=== PATIENT | female | born 1960 | race Caucasian/White ===

== ENCOUNTER 2016-10-14 14:29 | Emergency (ER) | payer OTHER ==
[2016-10-14] MEDS ORDERED: NS 0.9% 1000 ML* 1,000 ML IV ONE (15:19)
[2016-10-14] MEDS ORDERED: Metoclopramide IV* 5 MG/ML 2 ML VIAL IV SLOW PU ONE (15:19)
--- NOTE | 2016-10-14 15:59 | RAD ---
INDICATION: Headache. COMPARISON: There are no prior studies available for comparison. TECHNIQUE: Contiguous axial sections of the brain were obtained from the skull base to the vertex without contrast. FINDINGS: The ventricles, cisterns and sulci are within normal limits. There is a small 3 mm area of increased density in the anterior aspect of the right lentiform nucleus most consistent with a calcification much less likely a small area of hemorrhage. No other focal abnormality is a mass effect are seen. No significant focal osseous abnormality is seen. The visualized portion of the paranasal sinuses and mastoid air cells appear clear. IMPRESSION: SMALL 3 MM FOCUS OF INCREASED DENSITY IN THE RIGHT LENTIFORM NUCLEUS LIKELY REPRESENTING A CALCIFICATION MUCH LESS LIKELY A SMALL AREA OF HEMORRHAGE.
[2016-10-14 16:02] LABS: Hematocrit 42 % (35-47); Mean Corpuscular HGB Conc 33 g/dl (31-36); Mean Corpuscular Hemoglobin 28 pg (27-31); Mean Corpuscular Volume 85 fL (80-97); Mean Platelet Volume 8 um3 (7.4-10.4); Red Blood Count 4.99 10^6/ul (4.0-5.4); Red Cell Distribution Width 13 % (10.5-15); White Blood Count 8.4 10^3/ul (3.5-10.8)
[2016-10-14 16:24] LABS: Albumin 4.2 g/dL (3.2-5.2); BUN/Creatinine Ratio 14.5 (8-20); Calcium 9.2 mg/dL (8.6-10.3); EGFR African American 112.8 (>60); EGFR Non-African American 87.7 (>60); Globulin 2.7 g/dL (2-4); Total Bilirubin 0.4 mg/dL (0.2-1.0); Total Protein 6.9 g/dL (6.4-8.9)
[2016-10-14 16:34] LABS: Urine Bilirubin Negative (Negative); Urine Glucose Negative (Negative); Urine Nitrite Negative (Negative)
[2016-10-14] MEDS ORDERED: Ketorolac INJ* 30 MG/ML 1 ML VIAL IV PUSH ONE (19:12)
[2016-10-14 20:08] VITALS: BP 109/64
--- NOTE | 2016-10-16 15:21 | ED ---
Lynda Mejia SooYoung, scribed for Kleber Pichardo MD on 10/14/16 at 1504 . Headache - HPI Summary HPI Summary: A 56 y/o F presents to ED with c/o worsening R frontal MCDANIEL onset this week. Pain rated as 5/10. She states having intermittent episodes over past several weeks. Associated sx: sinus congestion last night, tingling in lower lip, post nasal drip. She took Zicam last night. Denies CP, SOB, dizziness/lightheadedness, rhinorrhea, head trauma, blurry vision, nausea, dental pain/sores, difficulty walking, trouble finding words. Pert PMHx: migraines. Last took Excedrin at approx 1300. Non-smoker, drinker, rare caffeine. No previous hx DVT. - History Of Current Complaint Chief Complaint: EDHeadache Stated Complaint: HEADACHE Time Seen by Provider: 10/14/16 15:02 Hx Obtained From: Patient Onset/Duration: Started weeks ago, Still Present Initially Headache Was: Moderate Currently Pain Is: Moderate - 5/10 Timing: Intermittent, Lasting: Location of Headache: Frontal Associated Signs And Symptoms: Sinus Pressure, Other (Noted In Comments) - pos: tingling in lower lip, post nasal drip - Allergies/Home Medications Allergies/Adverse Reactions: Allergies Allergy/AdvReac Type Severity Reaction Status Date / Time No Known Allergies Allergy Verified 03/05/16 17:34 PMH/Surg Hx/FS Hx/Imm Hx Previously Healthy: No Endocrine/Hematology History: Denies: Hx Diabetes, Hx Thyroid Disease Cardiovascular History: Denies: Hx Congestive Heart Failure, Hx Hypertension, Hx Pacemaker/ICD, Other Cardiovascular Problems/Disorders Respiratory History: Denies: Hx Asthma, Hx Chronic Obstructive Pulmonary Disease (COPD), Other Respiratory Problems/Disorders GI History: Denies: Hx Ulcer Musculoskeletal History: Denies: Hx Osteoporosis Psychiatric History: Reports: Hx Attention Deficit Hyperactivity Disorder, Hx Depression - Cancer History Hx Chemotherapy: No Hx Radiation Therapy: No - Surgical History Surgery Procedure, Year, and Place: , GALL BLADDER REMOVED, HERNIA REPAIR Infectious Disease History: No Infectious Disease History: Reports: Hx Shingles - AT AGE 1 OR 2 Denies: Hx Hepatitis, Hx Human Immunodeficiency Virus (HIV), Traveled Outside the [place] in Last 30 Days - Family History Known Family History: Positive: Hypertension, Renal Disease - Social History Occupation: Retired Lives: With Family Alcohol Use: Weekly Hx Substance Use: No Substance Use Type: Reports: None Hx Tobacco Use: No Smoking Status (MU): Never Smoked Tobacco Review of Systems Positive: Other - neg: head trauma. Negative: Fever, Chills Negative: Blurred Vision, Erythema Positive: Nasal Discharge - post nasal drip, Other - pos: sinus congestion; "tingling in lower lip". Negative: Dental Pain, Sore Throat Negative: Chest Pain Negative: Shortness Of Breath, Cough Negative: Abdominal Pain, Vomiting, Nausea Negative: dysuria, hematuria Negative: Myalgia, Edema Neurological: Other - neg: dizziness; difficulty finding words; trouble walking Positive: Headache All Other Systems Reviewed And Are Negative: Yes Physical Exam - Summary Physical Exam Summary: Constitutional: Well-developed, Well-nourished, Alert. (-) Distressed Skin: Warm, Dry HENT: Eyes: Conjunctiva normal; R MAXILLARY SINUS TENDERNESS. Neck: Musculoskeletal ROM normal neck. (-) JVD, (-) Stridor, (-) Tracheal deviation Cardio: Rhythm regular, rate normal, Heart sounds normal; Intact distal pulses; The pedal pulses are 2+ and symmetric. Radial pulses are 2+ and symmetric. (-) Murmur Pulmonary/Chest wall: Effort normal. (-) Respiratory distress, (-) Wheezes, (-) Rales Abd: Soft. (-) Tenderness, (-) Distension, (-) Guarding, (-) Rebound Musculoskeletal: (-) Edema Lymph: (-) Cervical adenopathy Neuro: Alert, Oriented x3, Strength normal, Cranial nerves II-XII are grossly intact. (-) Dysmetria, (-) Nystagmus, (-) Ataxia by finger to nose testing, (-) Sensory deficit. Psych: Mood and affect Normal Triage Information Reviewed: Yes Vital Signs On Initial Exam: Initial Vitals Temp Pulse Resp BP Pulse Ox 97.4 F 86 15 144/66 98 10/14/16 14:30 10/14/16 14:30 10/14/16 14:30 10/14/16 14:30 10/14/16 14:30 Vital Signs Reviewed: Yes Diagnostics - Vital Signs Vital Signs Temp Pulse Resp BP Pulse Ox 10/14/16 14:30 97.7 F 88 17 144/66 98 - Laboratory Result Diagrams: 10/14/16 15:55 10/14/16 15:55 Lab Statement: Any lab studies that have been ordered have been reviewed, and results considered in the medical decision making process. - CT BRAIN CT Interpretation: Positive (See Comments) - IMPRESSION: SMALL 3 MM FOCUS OF INCREASED DENSITY IN THE RIGHT LENTIFORM NUCLEUS LIKELY REPRESENTING A CALCIFICATION MUCH LESS LIKELY A SMALL AREA OF HEMORRHAGE. CT Interpretation Completed By: Radiologist - EKG 1 Cardiac Rate: NL EKG Rhythm: Sinus Rhythm Re-Evaluation - Re-Evaluation 1 Re-Evaluation Time: 18:35 Change: Unchanged Comment: Brief reevaluation of pt. Pt remarks feeling chilled. Will have nurse take temp. 2 Re-Evaluation Time: 19:30 Change: Improved Comment: Discussing neuro consult with pt. States her MCDANIEL has reduced to 2/10. She notes that her typical migraines usually occurs on the L side with oral numbness. Headache Course/Dx - Course Course Of Treatment: Pt is a 56 y/o F presenting with worsening R frontal MCDANIEL onset this week. Pain rated as 5/10. She states having intermittent episodes over past several weeks. Associated sx: sinus congestion last night, tingling in lower lip, post nasal drip. Denies CP, SOB, dizziness/lightheadedness, rhinorrhea, head trauma, blurry vision, nausea, dental pain/sores, difficulty walking, trouble finding words. Pert PMHx: migraines. Took Zicam last night, Excedrin at approx 1300. Non-smoker, drinker, rare caffeine. No previous hx DVT. Pt given Reglan, fluids in ED. Trop is negative. EKG was nml. UA was nml except for decreased specific gravity of 1.004. Brain CT shows "SMALL 3 MM FOCUS OF INCREASED DENSITY IN THE RIGHT LENTIFORM NUCLEUS LIKELY REPRESENTING A CALCIFICATION MUCH LESS LIKELY A SMALL AREA OF HEMORRHAGE.". Consulted with Dr. Flaherty, neuro, who has low suspicion of vascular dz because sx are too localized, recommends migraine treatment, will look at images. D/C home without meds and f/u with PCP. Discussed stopping Excedrin and taking Motrin or Aleve. Pt voiced understanding. - Diagnoses Provider Diagnoses: Atypical migraine - Physician Notifications Discussed Care Of Patient With: Judd Velarde - neuro Time Discussed With Above Provider: 19:07 Instructed by Provider To: Other - see CoT Discharge - Discharge Plan Condition: Stable Disposition: HOME Patient Education Materials: Migraine Headache (ED) Referrals: Ashlyn Cunningham MD [Primary Care Provider] - 3 Days Additional Instructions: Follow up with your primary care provider in the next 2-3 days. As we discussed, take Motrin or Aleve instead of Excedrin. The documentation as recorded by the Lynda whitt SooYoung accurately reflects the service I personally performed and the decisions made by me, Kleber Pichardo MD.
== END 2016-10-14 20:07 | disposition home or self-care (01) ==
LOC: ED 14:29
DX: G43.909 Migraine, unspecified, not intractable, without status migrainosus (principal); R51 Headache
CPT/HCPCS: 36415; 70450; 80053; 81003; 84484; 85027; 93005; 96374; 96375; 99282; J1885

== ENCOUNTER 2017-06-24 16:38 | Emergency (ER) | payer OTHER ==
--- OUTSIDE RECORDS SUMMARY | 2017-06-24 16:45 | XMS REPORT ---
:1960 External Reference #:[id number] Author Organization [facility] Address [address] [address] Phone [phone] Care Team Providers Name Role Phone Ashlyn Cunningham MD Primary Care Physician Unavailable Payers Type Date Identification Numbers Payment Provider Subscriber Commercial Policy Number: [id number] [employer] Dorene Arvada PayID: [id number] [address] [place] [address] Commercial Effective: 2014 Policy Number: Aetna-ADRIANACINDY Stephenson [id number] Expires: 2016 Group Number: [id number] [address] PayID: [id number] [place] [address] Commercial Effective: 2010 Policy Number: Aetna-CPHL [place] [id number] Expires: 2014 PayID: [id number] [address] [place] [address] Medigap Part B Effective: Policy Number: [employer] Insurance Dorene Arvada 2005 [id number] Expires: 2010 Group Number: [id number] [address] PayID: [id number] [place] [address] Problems Date Description Provider Status Onset: 01/10/2011 Anxiety state Brielle Donato M.D., FACP Active Onset: 01/10/2011 Depressive disorder Brielle Donato M.D., FACP Active Onset: 01/10/2011 Pure hypercholesterolemia Brielle Donato M.D., ANAP Active Onset: 01/10/2011 Bipolar I disorder Brielle Donato M.D., SEVEN Active Onset: 11/17/2014 Celiac disease Ashlyn Cunningham M.D. Active Onset: 08/06/2016 Irritable bowel syndrome Ashlyn Cunningham M.D. Active Family History Date Family Member(s) Problem(s) Comments Father Kidney Disease on HD : (age 84 Father due to Renal Years) Failure Mother Hypertension First Son Aspberger's First Sister 59 Second Sister 55 Second Sister Diabetes Type II reversed with weight loss Social History Type Date Description Comments Marital Status 28 years Lives With Son Kristine. 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[employer] Cigarette Use Never Smoked Cigarettes ETOH Use Drinks 1 Alcoholic Beverage Per Week hard cider Smoking Patient has never smoked Allergies, Adverse Reactions, Alerts Date Description Reaction Status Severity Comments 11/19/2009 No Known Drug Allergy active Medications Medication Date Status Form Strength Qnty SIG Indications Ordering Provider Ventolin HFA 06/22 Active Aerosol 108(90Bas 8gm 1-2 puffs R05 Fermin e) every 4-6 Stevenson, PUBLIC AFFAIRS MANAGER mcg/Act hours as needed Fluticasone 06/22 Active Suspension 50mcg/Act 16uni 2 sprays R05 Fermin Propionate ts each Stevenson, PUBLIC AFFAIRS MANAGER nostril qd. Flovent HFA 06/01 Active Aerosol 220mcg/Ac 12gm 2 puffs t twice Cotton, daily M.D. Benzonatate 06/01 Active Capsules 200mg 30cap take 1 s capsule by Cotton, mouth M.D. three times a day if needed for cough Aerochamber Plus 05/31 Active Misc 1unit spacer per R05 s plan - use Cotton, with M.D. inhaler Fluoxetine 09/09 Active Capsules 20mg 1 tab qhs Maria Del Carmen Donato, ANAP Fluoxetine HCL Active Capsules 40mg 1 by mouth Unknown /0000 every pm Allergy Relief Active Capsules 25mg Unknown /0000 Probiotic Active Capsules 1 by mouth Unknown /0000 every day Methylphenidate Active Tablets ER 54mg 30tab 1 by mouth Ashlyn HCL ER /0000 s every day Maria Del Carmen Cunningham Melatonin 00 Active Capsules 1mg 1 tab Unknown /0000 before bedtime Clonazepam 00 Active Tablets 0.5mg Unknown /0000 Flovent HFA 03/19 Hx Aerosol 110mcg/Ac 12gm 2 puffs t twice Cotton, - daily M.D. 06/01 Azithromycin 10/18 Hx Tablets 250mg 6tabs 2 tabs by 465.9 Ashlyn /2017 mouth on Cotton, - day 1; 1 M.D. 10/25 tab by /2016 mouth every day on days 2-5 Ondansetron 02/12 Hx Tablets 4mg 30tab dissolve R11.2 Fermin /2014 Dispers s one tablet Stevenson, PUBLIC AFFAIRS MANAGER - orally 05/18 every hours as needed for nausea. Cheratussin ac 01/19 Hx Syrup 100-10mg/ 118ml take 5-10 J06.9 Fermin 5ML milliliter Stevenson, PUBLIC AFFAIRS MANAGER - s every 01/27 4-6 hours /2014 as needed for cough. Fluticasone 01/19 Hx Suspension 50mcg/Act 16uni 2 sprays J06.9 Fermin Propionate ts each Stevenson, PUBLIC AFFAIRS MANAGER - nostril 02/03 qd. Baclofen 07/13 Hx Tablets 10mg 20tab take 04/24 847.0 Fermin /2014 s tab every Stevenson, PUBLIC AFFAIRS MANAGER - 8 hours as 09/09 needed for muscle spasm Azithromycin 05/08 Hx Tablets 250mg 6tabs 2 tabs by 465.9 Ashlyn /2015 mouth on Cotton, - day 1; 1 M.D. 07/13 tab by /2014 mouth every day on days 2-5 Pulmicort 05/08 Hx Aerosol 90mcg/Act 1unit 2 puff 465.9 Ashlyn Flexhaler s twice a Cotton, - day M.D. 07/13 Proair HFA 05/08 Hx Aerosol 108(90Bas 1unit 2 puffs 4 465.9 Ashlyn /2015 e) s times Cotton, - mcg/Act daily as M.D. 07/13 needed Nitrofurantoin 04/17 Hx Capsules 100mg 14cap 1 by mouth Ashlyn Monohyd Macro s twice a Cotton, - day x 7 M.D. 05/07 days Benzonatate 09/19 Hx Capsules 200mg 45cap take 1 s capsule by Cotton, - mouth M.D. 05/07 times a day if needed Flovent HFA 09/19 Hx Aerosol 110mcg/Ac 12gm 2 puffs t twice Cotton, - daily M.D. 05/07 Azithromycin 09/16 Hx Tablets 250mg 6tabs 2 tabs by 465.9 mouth on Cotton, - day 1; 1 M.D. 09/27 tab by mouth every day on days 2-5 Ergocalciferol 03/10 Hx Capsules [id number] 8caps 1 cap by mouth Kinga, - every week M.D., FACP 09/16 Omeprazole 08/[address] 20mg 180ca take 1 ps capsule Cotton, - once daily M.D. 07/13 Ergocalciferol 02/21 Hx Capsules [id number] 8caps 1 cap by 268.9 mouth Kinga, - every week M.D., FACP 02/27 Guaiatussin ac 01/25 Hx Syrup 100-10mg/ 118ml take 10 ml 786.2 Hollie 5ML by mouth Shane, - every 6 M.D. 02/21 hours needed for cough Azithromycin 01/25 Hx Tablets 250mg 6tabs two tabs 786.2 day one, Shane, - one daily M.D. 02/21 till Clobex 01/10 Hx Shampoo 0.05% 118ml use once a day Kinga, - M.D., FACP 05/18 Physical Therapy 09/09 Hx Low back, Right Kinga, - sacroiliit M.D., FACP 01/10 Clobex 03/09 Hx Lotion 0.05% 118ml apply to affected Kinga, - area every M.D., FACP Albuterol 02/04 Hx 1unit 2 puffs 4 786.2 Ashlyn Inhal s times Cotton, - daily as M.D. 11/30 needed Flovent HFA 02/04 Hx Aerosol 110mcg/Ac 12gm 2 puffs 786.2 t twice Shane, - daily M.D. 09/16 Azithromycin 02/04 Hx Tablets 250mg 6tabs 2 tabs po 786.2 on day 1; Octavio, - 1 tab po M.D. 03/09 qd on 2-5 Prednisone 02/04 Hx Tablets 10mg 20tab 4 tabs po 786.2 s days 1-2; Octavio, - 3 tabs po M.D. 03/09 on 3-4, 2 tabs po on days 5-6, 1 tab po days 7-8 Medrol Dosepak 01/21 Hx Tablets 4mg 1tabs follow package Kinga, - roque M.DEz, [facility] 02/04 take with food Zithromax Z-Obi 01/17 Hx Tablets 250mg 1Pack two po initially Kinga, - then one M.D., FACP 01/27 po daily Proair HFA 01/17 Hx Aerosol 108(90Bas 1unit 1 to 2 e) mcg/ac s inhalation Kinga, - s before M.D., [facility] 03/09 exercise or as needed Lorazepam 12/07 Hx Tablets 0.5mg 1 tablet daily as Kinga, - needed M.D., [facility] 03/09 0.5 cc Sure Dose 12/07 Hx 100un use as Brielle Plus Syringes its directed Juan Donato M.D., [facility] 01/17 Trileptal 11/19 Hx 150mg 2 tablets every Kinga, - evening M.D., [facility] 03/09 Fluoxetine HCL 11/19 Hx Capsules 40mg 30cap 1 daily s Juan Donato M.D., [facility] 09/09 Concerta 11/19 Hx Tablets ER 36mg 30tab 1 daily s Jaun Donato M.D., FACP 03/09 Strattera 09/26 Hx Brielle Juan Donato M.D., [facility] 11/19 Prozac 09/26 Hx Unknown /2009 - 09/26 Abilify 09/26 Hx Brielle Kinga, - M.D., FACP 11/19 Omeprazole 09/[address] 20mg 30cap Take one Brielle s capsule Kinga, - twice M.D., FACP 01/25 Pristiq 09/26 Hx Tablets ER 50mg 90tab Take 1 24HR s Tablet Kinga, - Daily M.D., FACP 03/20 Activella 09/26 Hx Tablets 1-0.5mg 3tabs take 1 Ashlyn tablet Cotton, - daily M.D. 07/13 Concerta Hx Tablets ER 36mg 1 po qd Unknown /0000 - 10/17 Concerta Hx Tablets ER 18mg 30tab 1 po qd Unknown /0000 s - 09/09 Trileptal Hx Tablets 300mg 2 At Night Unknown /0000 (600mg - daily) 09/16 Trileptal Hx Tablets 150mg 360ta 1 by mouth Unknown /0000 bs in am - 09/09 Hiddenite Hx Tablets ER 300mg 1 by mouth Filler, Carbonate ER /0000 daily MD Hollie - 03/07 Prozac 00 Hx Capsules 10mg 30cap 1 po qd Unknown /0000 s - 06/08 Abilify 00/00 Hx Tablets 2mg 30tab 1 po qpm 296.7 Unknown /0000 s - 09/20 Loratadine Hx Tablets 10mg 30tab Unknown Allergy Relief /0000 Dispers s - 04/26 Probiotic 4X 00/ Hx Capsules 1 po qd Unknown /0000 - 02/27 Pristiq Hx Tablets ER 100mg 1 po qd Unknown /0000 24HR - 02/27 Effexor XR Hx Caps ER 150mg 30cap daily Unknown /0000 24HR s - 10/21 Abilify 00/00 Hx Tablets 2mg 30tab 1 po qpm Unknown /0000 s - 07/13 Fish Oil [address] 1000mg 180ca 1 by mouth Unknown /0000 ps every day - 09/09 Vitamin D 00/00 Hx Tablets 1000Unit 1 tab each Unknown (Cholecalciferol /0000 day by ) - mouth 09/09 Multi-Day Hx Tablets 1 by mouth Unknown /0000 every day - 01/19 Probiotic Daily 0000 Hx Capsules 30cap Unknown /0000 s - 09/09 Lorazepam 00 Hx Tablets 0.5mg as Unknown /0000 directed - 10/17 Methylphenidate Hx 10mg Unknown HCL /0000 - 10/15 Omeprazole 00 Hx Capsules 1 by mouth Unknown /0000 every day - 12/17 Vitamin D3 Hx Capsules 2000Unit 1 by mouth Unknown /0000 every day - 03/27 Effexor XR Hx Caps ER 150mg 1 by mouth Unknown /0000 24HR every day - 03/01 Lamotrigine Hx Tablets 100mg 1 by mouth Unknown /0000 twice a - day 12/17 Clonazepam Hx Tablets 0.5mg 1/2 by Unknown /0000 mouth - twice 05/30 a\\daily directed Medications Administered in Office Medication Date Status Form Strength Qnty SIG Indications Ordering Provider Celestone 3 mg Administered Injection Phong and 3mg 017 MD Leticia Celestone 3 mg Administered Injection Phong and 3mg 017 MD Leticia Immunizations CPT Code Status Date Vaccine Reaction Lot # [id number] Given 03/02/2017 Influenza Virus Vaccine, No allergies noted - [id number] Quadrivalent, Split, no immediate side Preservative Free effects seen - patient tolerated well. 65259 Given 03/27/2016 Influenza Virus Vaccine, no immediate reaction [id number] Quadrivalent, Split Virus, noted ... [place] [address] Given 2015 Influenza Virus Vaccine, [id number] Quadrivalent, Split, Preservative Free 73594 Given 02/25/2014 Flu Vaccine Split Virus [id number] Preservative Free For Indiv 3Yr Older 87254 Given 02/27/2013 Flu Vaccine Split Virus [id number] Preservative Free For Indiv 3Yr Older Q2037 Given 02/09/2012 Fluvirin Im 3Yrs And Older [id number] 13246 Given 01/10/2011 Influenza Virus 3Yrs & [id number] Over 90205 Given 02/13/2008 Influenza Virus 3Yrs & Over 05817 Given 01/25/2007 Tdap - Tetanus/Diptheria/Acellula r Pertussis 29839 Given 01/25/2007 Influenza Virus 3Yrs & Over 81121 Given 01/25/2007 Influenza Virus 3Yrs & Over Vital Signs Date Vital Result Comment 06/22/2017 Weight 152.50 lb Heart Rate 95 /min BP Systolic Sitting 120 mmHg BP Diastolic Sitting 82 mmHg Body Temperature 98.4 F O2 % BldC Oximetry 97 % 05/31/2017 Weight 149.00 lb Heart Rate 107 /min BP Systolic Sitting 125 mmHg BP Diastolic Sitting 82 mmHg Body Temperature 99.7 F O2 % BldC Oximetry 97 % 03/23/2017 Height 62.50 inches 5'2.50" Weight 145.00 lb Heart Rate 68 /min Respiratory Rate 16 /min Body Temperature 98.1 F Pain Level 9 BMI (Body Mass Index) 26.1 kg/m2 03/07/2017 Height 62.50 inches 5'2.50" Weight 145.00 lb Heart Rate 80 /min Respiratory Rate 14 /min Body Temperature 98.4 F Pain Level 8 BMI (Body Mass Index) 26.1 kg/m2 03/02/2017 Height 62.50 inches 5'2.50" Weight 151.00 lb with boots Heart Rate 95 /min BP Systolic 120 mmHg BP Diastolic 60 mmHg Body Temperature 98.2 F O2 % BldC Oximetry 97 % BMI (Body Mass Index) 27.2 kg/m2 12/18/2016 Height 62.50 inches 5'2.50" Weight 147.50 lb Heart Rate 92 /min BP Systolic 124 mmHg BP Diastolic 66 mmHg Body Temperature 98.9 F O2 % BldC Oximetry 97 % BMI (Body Mass Index) 26.5 kg/m2 Waist Circumference 32 10/17/2016 Weight 147.00 lb Heart Rate 71 /min BP Systolic 106 mmHg BP Diastolic 70 mmHg Body Temperature 97.6 F O2 % BldC Oximetry 95 % 05/18/2016 Weight 153.00 lb Heart Rate 94 /min BP Systolic Sitting 108 mmHg BP Diastolic Sitting 80 mmHg Body Temperature 97.8 F O2 % BldC Oximetry 97 % 03/27/2016 Weight 149.00 lb Heart Rate 99 /min BP Systolic Sitting 106 mmHg BP Diastolic Sitting 76 mmHg Body Temperature 97.6 F O2 % BldC Oximetry 96 % 03/07/2016 Height 62.5 inches 5'2.50" Weight 150.00 lb Heart Rate 93 /min BP Systolic 112 mmHg BP Diastolic 68 mmHg Body Temperature 98.8 F O2 % BldC Oximetry 98 % BMI (Body Mass Index) 27.0 kg/m2 05/13/2015 Height 62.5 inches 5'2.50" Weight 154.00 lb Heart Rate 98 /min BP Systolic Sitting 113 mmHg BP Diastolic Sitting 70 mmHg Respiratory Rate 16 /min Pain Level 7 7-10 depending on activity BMI (Body Mass Index) 27.7 kg/m2 04/26/2015 Height 62.5 inches 5'2.50" Weight 154.00 lb Heart Rate 91 /min BP Systolic Sitting 114 mmHg BP Diastolic Sitting 78 mmHg Body Temperature 97.4 F O2 % BldC Oximetry 97 % BMI (Body Mass Index) 27.7 kg/m2 2015 Height 62.5 inches 5'2.50" Weight 162.00 lb Heart Rate 78 /min BP Systolic Sitting 112 mmHg BP Diastolic Sitting 70 mmHg Respiratory Rate 13 /min Body Temperature 98.7 F O2 % BldC Oximetry 97 % BMI (Body Mass Index) 29.2 kg/m2 01/19/2015 Height 62.5 inches 5'2.50" Weight 165.00 lb Heart Rate 105 /min BP Systolic 108 mmHg BP Diastolic 66 mmHg Body Temperature 99.3 F O2 % BldC Oximetry 97 % BMI (Body Mass Index) 29.7 kg/m2 11/17/2014 Height 62.5 inches 5'2.50" Weight 167.50 lb Heart Rate 98 /min BP Systolic Sitting 110 mmHg BP Diastolic Sitting 68 mmHg BMI (Body Mass Index) 30.1 kg/m2 09/09/2014 Weight 173.75 lb Heart Rate 84 /min BP Systolic Sitting 114 mmHg BP Diastolic Sitting 80 mmHg Body Temperature 97.8 F O2 % BldC Oximetry 98 % 07/13/2014 Height 62.25 inches 5'2.25" Weight 183.00 lb Heart Rate 104 /min BP Systolic 118 mmHg BP Diastolic 74 mmHg Body Temperature 98.7 F BMI (Body Mass Index) 33.2 kg/m2 05/08/2014 Height 62.25 inches 5'2.25" Weight 189.25 lb Heart Rate 98 /min BP Systolic Sitting 120 mmHg BP Diastolic Sitting 74 mmHg Body Temperature 99.4 F O2 % BldC Oximetry 99 % BMI (Body Mass Index) 34.3 kg/m2 09/16/2013 Weight 178.50 lb Heart Rate 98 /min BP Systolic 138 mmHg BP Diastolic 82 mmHg Respiratory Rate 18 /min Body Temperature 98.9 F O2 % BldC Oximetry 96 % 04/08/2013 Weight 183.00 lb Heart Rate 80 /min BP Systolic Sitting 128 mmHg BP Diastolic Sitting 70 mmHg Body Temperature 98.8 F 02/27/2013 Height 62.25 inches 5'2.25" Weight 176.75 lb Heart Rate 78 /min BP Systolic Sitting 120 mmHg BP Diastolic Sitting 80 mmHg BMI (Body Mass Index) 32.1 kg/m2 03/20/2012 Height 61.5 inches 5'1.50" Weight 161.00 lb Heart Rate 90 /min BP Systolic Sitting 128 mmHg BP Diastolic Sitting 80 mmHg BMI (Body Mass Index) 29.9 kg/m2 03/06/2012 Height 61.5 inches 5'1.50" Weight 162.00 lb Heart Rate 84 /min BP Systolic Sitting 120 mmHg BP Diastolic Sitting 66 mmHg BMI (Body Mass Index) 30.1 kg/m2 02/28/2012 Height 61.5 inches 5'1.50" Weight 163.00 lb Heart Rate 84 /min BP Systolic Sitting 120 mmHg BP Diastolic Sitting 70 mmHg BMI (Body Mass Index) 30.3 kg/m2 02/22/2012 Height 61.5 inches 5'1.50" Weight 166.00 lb Heart Rate 104 /min BP Systolic Sitting 124 mmHg BP Diastolic Sitting 74 mmHg Body Temperature 99.6 F BMI (Body Mass Index) 30.9 kg/m2 02/09/2012 Height 61.5 inches 5'1.50" Weight 162.00 lb Heart Rate 104 /min BP Systolic Sitting 116 mmHg BP Diastolic Sitting 70 mmHg BMI (Body Mass Index) 30.1 kg/m2 01/26/2012 Height 61.5 inches 5'1.50" Weight 165.00 lb Heart Rate 84 /min 103 BP Systolic Sitting 128 mmHg BP Diastolic Sitting 76 mmHg Body Temperature 99.9 F O2 % BldC Oximetry 97 % BMI (Body Mass Index) 30.7 kg/m2 09/21/2011 Height 61.5 inches 5'1.50" Weight 180.00 lb Heart Rate 88 /min BP Systolic Sitting 130 mmHg BP Diastolic Sitting 72 mmHg BMI (Body Mass Index) 33.5 kg/m2 06/08/2011 Height 61.5 inches 5'1.50" Weight 171.00 lb Heart Rate 76 /min BP Systolic Sitting 126 mmHg BP Diastolic Sitting 70 mmHg BMI (Body Mass Index) 31.8 kg/m2 01/10/2011 Height 61.5 inches 5'1.50" Weight 161.00 lb Heart Rate 78 /min BP Systolic Sitting 130 mmHg BP Diastolic Sitting 62 mmHg BMI (Body Mass Index) 29.9 kg/m2 09/09/2010 Height 61.5 inches 5'1.50" Weight 159.00 lb Heart Rate 78 /min BP Systolic Sitting 110 mmHg BP Diastolic Sitting 70 mmHg BMI (Body Mass Index) 29.6 kg/m2 03/22/2010 Weight 161.25 lb Heart Rate 64 /min BP Systolic 136 mmHg BP Diastolic 82 mmHg 03/09/2010 Weight 145.00 lb Heart Rate 60 /min BP Systolic 132 mmHg BP Diastolic 82 mmHg 02/04/2010 Weight 164.50 lb Heart Rate 86 /min BP Systolic 110 mmHg BP Diastolic 80 mmHg Body Temperature 98.8 F O2 % BldC Oximetry 95 % 01/17/2010 Weight 162.00 lb Heart Rate 80 /min BP Systolic 112 mmHg BP Diastolic 76 mmHg Body Temperature 99.0 F Results Test Date Test Result H/L Range Note Laboratory test 12/18/2016 Cytology SEE RESULT BELOW 1 finding Laboratory test 12/18/2016 HPV Rna Ww/Reflex Negative Negative 2, 3 finding Genotype Lipid Profile 12/16/2016 Triglycerides 108 mg/dL 4 (Trig/Chol/HDL) Cholesterol 165 mg/dL 5 HDL Cholesterol 46.8 mg/dL 6 LDL Cholesterol 97 mg/dL 7 Comp Metabolic Panel 12/16/2016 Sodium 134 mmol/L 133-145 Potassium 4.4 mmol/L 3.5-5.0 Chloride 104 mmol/L 101-111 Co2 Carbon Dioxide 27 mmol/L 22-32 Anion Gap 3 mmol/L 2-11 Glucose 86 mg/dL 70-100 Blood Urea Nitrogen 16 mg/dL 6-24 Creatinine 0.72 mg/dL 0.51-0.95 BUN/Creatinine Ratio 22.2 High 8-20 Calcium 9.3 mg/dL 8.6-10.3 Total Protein 6.6 g/dL 6.4-8.9 Albumin 4.2 g/dL 3.2-5.2 Globulin 2.4 g/dL 2-4 Albumin/Globulin Ratio 1.8 1-3 Total Bilirubin 0.60 mg/dL 0.2-1.0 Alkaline Phosphatase 94 U/L 34-104 Alt 17 U/L 7-52 Ast 18 U/L 13-39 Egfr Non- 83.5 >60 Egfr 107.4 >60 8 CBC No Diff 10/14/2016 White Blood Count 8.4 10^3/uL 3.5-10.8 Red Blood Count 4.99 10^6/uL 4.0-5.4 Hemoglobin 14.0 g/dL 12.0-16.0 Hematocrit 42 % 35-47 Mean Corpuscular Volume 85 fL 80-97 Mean Corpuscular Hemoglobin 28 pg 27-31 Mean Corpuscular HGB Conc 33 g/dL 31-36 Red Cell Distribution Width 13 % 10.5-15 Platelet Count 188 10^3/uL 150-450 Mean Platelet Volume 8 um3 7.4-10.4 Urinalysis Profile 10/14/2016 Urine Color Straw Urine Appearance Clear Urine Specific [place] 1.004 Low 1.010-1.030 Urine pH 6.0 5-9 Urine Urobilinogen Negative Negative Urine Ketones Negative Negative Urine Protein Negative Negative Urine Leukocytes Negative Negative Urine Blood Negative Negative Urine Nitrite Negative Negative Urine Bilirubin Negative Negative Urine Glucose Negative Negative Comp Metabolic Panel 10/14/2016 Sodium 136 mmol/L 133-145 Potassium 4.0 mmol/L 3.5-5.0 Chloride 105 mmol/L 101-111 Co2 Carbon Dioxide 25 mmol/L 22-32 Anion Gap 6 mmol/L 2-11 Glucose 93 mg/dL 70-100 Blood Urea Nitrogen 10 mg/dL 6-24 Creatinine 0.69 mg/dL 0.51-0.95 BUN/Creatinine Ratio 14.5 8-20 Calcium 9.2 mg/dL 8.6-10.3 Total Protein 6.9 g/dL 6.4-8.9 Albumin 4.2 g/dL 3.2-5.2 Globulin 2.7 g/dL 2-4 Albumin/Globulin Ratio 1.6 1-3 Total Bilirubin 0.40 mg/dL 0.2-1.0 Alkaline Phosphatase 111 U/L High 34-104 Alt 15 U/L 7-52 Ast 16 U/L 13-39 Egfr Non- 87.7 >60 Egfr 112.8 >60 9 Laboratory test finding 10/14/2016 Troponin-I (TnI) 0.00 ng/mL <0.04 CBC Auto Diff 03/05/2016 White Blood Count 9.8 10^3/uL 3.5-10.8 Red Blood Count 5.03 10^6/uL 4.0-5.4 Hemoglobin 14.3 g/dL 12.0-16.0 Hematocrit 43 % 35-47 Mean Corpuscular Volume 85 fL 80-97 Mean Corpuscular Hemoglobin 28 pg 27-31 Mean Corpuscular HGB Conc 34 g/dL 31-36 Red Cell Distribution Width 13 % 10.5-15 Platelet Count 189 10^3/uL 150-450 Mean Platelet Volume 8 um3 7.4-10.4 Abs Neutrophils 7.3 10^3/uL 1.5-7.7 Abs Lymphocytes 1.5 10^3/uL 1.0-4.8 Abs Monocytes 0.8 10^3/uL 0-0.8 Abs Eosinophils 0.1 10^3/uL 0-0.6 Abs Basophils 0.1 10^3/uL 0-0.2 Abs Nucleated RBC 0 10^3/uL Granulocyte % 74.5 % 38-83 Lymphocyte % 15.5 % Low 25-47 Monocyte % 8.3 % 1-9 Eosinophil % 1.1 % 0-6 Basophil % 0.6 % 0-2 Nucleated Red Blood Cells % 0 Laboratory test finding 03/05/2016 Lactic Acid 0.5 mmol/L 0.5-2.0 10 Comp Metabolic Panel 03/05/2016 Sodium 131 mmol/L Low 133-145 Potassium 4.0 mmol/L 3.5-5.0 Chloride 99 mmol/L Low 101-111 Co2 Carbon Dioxide 27 mmol/L 22-32 Anion Gap 5 mmol/L 2-11 Glucose 86 mg/dL 70-100 Blood Urea Nitrogen 16 mg/dL 6-24 Creatinine 0.84 mg/dL 0.51-0.95 BUN/Creatinine Ratio 19.0 8-20 Calcium 9.8 mg/dL 8.6-10.3 Total Protein 7.4 g/dL 6.4-8.9 Albumin 4.2 g/dL 3.2-5.2 Globulin 3.2 g/dL 2-4 Albumin/Globulin Ratio 1.3 1-3 Total Bilirubin 0.60 mg/dL 0.2-1.0 Alkaline Phosphatase 98 U/L 34-104 Alt 19 U/L 7-52 Ast 17 U/L 13-39 Egfr Non- 69.9 >60 Egfr 89.9 >60 11 Laboratory test finding 03/05/2016 Amylase 70 U/L 29-103 Lipase 38 U/L 11.0-82.0 C Reactive Protein 56.74 mg/L High < 5.00 12 Urine Culture And 03/05/2016 Urine Culture SEE RESULT BELOW 13 Sensitivities CBC Auto Diff 04/29/2015 White Blood Count 8.4 10^3/uL 3.5-10.8 Red Blood Count 4.88 10^6/uL 4.0-5.4 Hemoglobin 13.7 g/dL 12.0-16.0 Hematocrit 42 % 35-47 Mean Corpuscular Volume 85 fL 80-97 Mean Corpuscular Hemoglobin 28 pg 27-31 Mean Corpuscular HGB Conc 33 g/dL 31-36 Red Cell Distribution Width 13 % 10.5-15 Platelet Count 302 10^3/uL 150-450 Mean Platelet Volume 8 um3 7.4-10.4 Abs Neutrophils 6.5 10^3/uL 1.5-7.7 Abs Lymphocytes 1.3 10^3/uL 1.0-4.8 Abs Monocytes 0.4 10^3/uL 0-0.8 Abs Eosinophils 0.2 10^3/uL 0-0.6 Abs Basophils 0.1 10^3/uL 0-0.2 Abs Nucleated RBC 0 10^3/uL Granulocyte % 77.5 % 38-83 Lymphocyte % 15.1 % Low 25-47 Monocyte % 4.2 % 1-9 Eosinophil % 2.1 % 0-6 Basophil % 1.1 % 0-2 Nucleated Red Blood Cells % 0 Comp Metabolic Panel 04/29/2015 Sodium 136 mmol/L 133-145 Potassium 4.3 mmol/L 3.5-5.0 Chloride 103 mmol/L 101-111 Co2 Carbon Dioxide 26 mmol/L 22-32 Anion Gap 7 mmol/L 2-11 Glucose 102 mg/dL High 70-100 Blood Urea Nitrogen 10 mg/dL 6-24 Creatinine 0.86 mg/dL 0.51-0.95 BUN/Creatinine Ratio 11.6 8-20 Calcium 9.6 mg/dL 8.6-10.3 Total Protein 7.0 g/dL 6.4-8.9 Albumin 4.4 g/dL 3.2-5.2 Globulin 2.6 g/dL 2-4 Albumin/Globulin Ratio 1.7 1-3 Total Bilirubin 0.40 mg/dL 0.2-1.0 Alkaline Phosphatase 98 U/L 34-104 Alt 19 U/L 7-52 Ast 17 U/L 13-39 Egfr Non- 68.3 >60 Egfr 87.8 >60 14 Laboratory test 04/29/2015 TSH (Thyroid Stim 0.83 ?IU/mL 0.34-5.60 finding Horm) Laboratory test 09/17/2014 C. Difficile Toxin SEE RESULT BELOW 15 finding Amplified Dna Stool Culture SEE RESULT BELOW 16 Celiac Panel 09/16/2014 Tissue Transglutaminase IgA Ab 8.0 U/mL 17 Immunoglobulin A 91 mg/dL 61 - 356 Celiac Interpretation See Comment 18 Comp Metabolic Panel 09/16/2014 Sodium 133 mmol/L 133-145 Potassium 4.1 mmol/L 3.5-5.0 Chloride 102 mmol/L 101-111 Co2 Carbon Dioxide 27 mmol/L 22-32 Anion Gap 4 mmol/L 2-11 Glucose 95 mg/dL 70-100 Blood Urea Nitrogen 9 mg/dL 6-24 Creatinine 0.81 mg/dL 0.51-0.95 BUN/Creatinine Ratio 11.1 8-20 Calcium 9.8 mg/dL 8.6-10.3 Total Protein 6.6 g/dL 6.4-8.9 Albumin 4.4 g/dL 3.2-5.2 Globulin 2.2 g/dL 2-4 Albumin/Globulin Ratio 2.0 1-3 Total Bilirubin 0.60 mg/dL 0.2-1.0 Alkaline Phosphatase 92 U/L 34-104 Alt 44 U/L 7-52 Ast 37 U/L 13-39 Egfr Non- 73.4 >60 Egfr 94.4 >60 19 CBC Auto Diff 09/16/2014 White Blood Count 5.9 10^3/uL 4.8-10.8 Red Blood Count 5.04 10^6/uL 4.0-5.4 Hemoglobin 14.7 g/dL 12.0-16.0 Hematocrit 44 % 35-47 Mean Corpuscular Volume 87 fL 80-97 Mean Corpuscular Hemoglobin 29 pg 27-31 Mean Corpuscular HGB Conc 34 g/dL 31-36 Red Cell Distribution Width 13 % 10.5-15 Platelet Count 212 10^3/uL 150-450 Mean Platelet Volume 8 um3 7.4-10.4 Abs Neutrophils 4.3 10^3/uL 1.5-7.7 Abs Lymphocytes 1.0 10^3/uL 1.0-4.8 Abs Monocytes 0.5 10^3/uL 0-0.8 Abs Eosinophils 0.1 10^3/uL 0-0.6 Abs Basophils 0 10^3/uL 0-0.2 Abs Nucleated RBC 0 10^3/uL Granulocyte % 73.3 % 38-83 Lymphocyte % 16.6 % Low 25-47 Monocyte % 8.1 % 1-9 Eosinophil % 1.4 % 0-6 Basophil % 0.6 % 0-2 Nucleated Red Blood Cells % 0 Laboratory test finding 09/16/2014 Erythrocyte Sed Rate 13 mm/Hr 0-30 TSH (Thyroid Stim Horm) 2.17 ?IU/mL 0.34-5.60 C Reactive Protein 4.07 mg/L < 5.00 20 Lipid Profile (Trig/Chol/HDL) 04/14/2014 Triglycerides 145 mg/dL 21 Cholesterol 171 mg/dL 22 HDL Cholesterol 42.0 mg/dL 23 LDL Cholesterol 100 mg/dL 24 Comp Metabolic Panel 04/14/2014 Sodium 137 mmol/L 133-145 Potassium 4.3 mmol/L 3.5-5.0 Chloride 104 mmol/L 101-111 Co2 Carbon Dioxide 27 mmol/L 22-32 Anion Gap 6 mmol/L 2-11 Glucose 93 mg/dL 70-100 Blood Urea Nitrogen 15 mg/dL 6-24 Creatinine 0.70 mg/dL 0.51-0.95 BUN/Creatinine Ratio 21.4 High 8-20 Calcium 9.3 mg/dL 8.6-10.3 Total Protein 6.6 g/dL 6.4-8.9 Albumin 4.4 g/dL 3.2-5.2 Globulin 2.2 g/dL 2-4 Albumin/Globulin Ratio 2.0 1-3 Total Bilirubin 0.40 mg/dL 0.2-1.0 Alkaline Phosphatase 85 U/L 34-104 Alt 28 U/L 7-52 Ast 20 U/L 13-39 Egfr Non- 86.9 >60 Egfr 111.7 >60 25 Laboratory test finding 04/14/2014 [place] 0.33 mmol/L Low 0.6-1.2 TSH (Thyroid Stimulating Horm) 1.98 IU/mL 0.34-5.60 Urinalysis Profile 04/14/2014 Urine Color Yellow Urine Appearance Clear Urine Specific [place] 1.013 1.010-1.030 Urine pH 7.0 5-9 Urine Urobilinogen Negative Negative Urine Ketones Negative Negative Urine Protein Negative Negative Urine Leukocytes 3+ Negative Urine Blood Negative Negative Urine Nitrite Negative Negative Urine Bilirubin Negative Negative Urine Glucose Negative Negative Urine White Blood Cell 1+(6-10/hpf) Absent Urine Red Blood Cell Trace Absent Urine Bacteria Absent Absent Urine Squamous Epithelial Cell Present Absent Vitamin D, 25 Hydroxy 04/14/2014 25-Hydroxy Vitamin D2 <4.0 ng/mL 25-Hydroxy Vitamin D3 27 ng/mL 25-Hydroxy Vitamin D Total 27 ng/mL 26 Urine Culture And Sensitivities 04/14/2014 Urine Culture (SEE NOTE) 27 Laboratory test finding 04/08/2013 Ferritin 67 ng/mL 11-307 28 TSH (Thyroid Stimulating Horm) 1.33 miu/mL 0.34-5.60 29 Free T4 0.65 ng/mL 0.61-1.24 30 Total T3 1.19 ng/mL 0.5-1.7 31 CBC Auto Diff 04/08/2013 White Blood Count 9.0 10^3/uL 4.8-10.8 Red Blood Count 4.60 10^6/uL 4.0-5.4 Hemoglobin 13.9 g/dL 12.0-16.0 Hematocrit 40 % 35-47 Mean Corpuscular Volume 87 fL 80-97 Mean Corpuscular Hemoglobin 30 pg 27-31 Mean Corpuscular HGB Conc 35 g/dL 31-36 Red Cell Distribution Width 13 % 10.5-15 Platelet Count 246 10^3/uL 150-450 Mean Platelet Volume 9 um3 7.4-10.4 Abs Neutrophils 7.1 10^3/uL 1.5-7.7 Abs Lymphocytes 1.2 10^3/uL 1.0-4.8 Abs Monocytes 0.4 10^3/uL 0-0.8 Abs Eosinophils 0.2 10^3/uL 0-0.6 Abs Basophils 0.1 10^3/uL 0-0.2 Abs Nucleated RBC 0.01 10^3/uL Granulocyte % 79.1 % 38-83 Lymphocyte % 13.4 % Low 25-47 Monocyte % 4.8 % 1-9 Eosinophil % 2.0 % 0-6 Basophil % 0.7 % 0-2 Nucleated Red Blood Cells % 0.1 Laboratory test finding 04/08/2013 Patricia (Anti-Nuclear AB) Negative Negative 32 Screen Vitamin D, 25 Hydroxy 04/08/2013 25-Hydroxy Vitamin D2 30 ng/mL 25-Hydroxy Vitamin D3 13 ng/mL 25-Hydroxy Vitamin D Total 43 ng/mL 33 Laboratory test finding 04/08/2013 Lyme Disease Serology Negative Negative 34 Cyclic Citrullinated Pept IgG <15.6 U 35 C Reactive Protein 0.9 mg/dL High Less than 0.5 36 Erythrocyte Sed Rate 10 mm/Hr 0-30 37 Laboratory test finding 02/27/2013 TSH (Thyroid Stimulating 1.26 miu/mL 0.34-5.60 Horm) Comp Metabolic Panel 02/27/2013 Sodium 137 mmol/L 133-145 Potassium 5.0 mmol/L 3.5-5.0 Chloride 104 mmol/L 101-111 Co2 Carbon Dioxide 28.0 mmol/L 22-32 Anion Gap 5.0 mmol/L 2-11 Glucose 92 mg/dL 70-100 Blood Urea Nitrogen 10 mg/dL 6-24 Creatinine 0.70 mg/dL 0.50-1.40 BUN/Creatinine Ratio 14.3 8-20 Calcium 9.4 mg/dL 8.1-9.9 Total Protein 7.0 g/dL 6.2-8.1 Albumin 4.3 g/dL 3.6-5.4 Globulin 2.7 g/dL 2-4 Albumin/Globulin Ratio 1.6 1-3 Total Bilirubin 0.6 mg/dL 0.4-1.5 Alkaline Phosphatase 91 U/L 30-110 Alt 22 U/L 14-54 Ast 18 U/L 12-42 Egfr Non- 87.2 >60 Egfr 112.1 >60 38 Laboratory test finding 02/27/2013 Cytology RUN DATE: <SEE NOTE> Vitamin D, 25 Hydroxy 02/27/2013 25-Hydroxy Vitamin D2 <4.0 ng/mL 25-Hydroxy Vitamin D3 29 ng/mL 25-Hydroxy Vitamin D Total 29 ng/mL 40 Lipid Profile (Trig/Chol/HDL) 02/24/2013 Triglycerides 125 mg/dL 40-200 Cholesterol 176 mg/dL Less than 200 HDL Cholesterol 34 mg/dL Low 40-60 41 Cholesterol/HDL Ratio 5.2 Average High 1-4.44 LDL Cholesterol 117.0 High Less Than 100 42 Laboratory test 02/24/2013 Glucose 92 mg/dL 70-100 43 finding Laboratory test 05/23/2012 [place] 0.3 mmol/L Low 0.5-1.5 finding Laboratory test 02/09/2012 TSH (Thyroid 1.36 MIU/ML 0.34-5.60 finding Stimulating Horm) Free T4 0.56 NG/ML Low 0.61-1.24 Vitamin D, 25 Hydroxy 02/09/2012 25-Hydroxy Vitamin D2 <4.0 ng/mL 25-Hydroxy Vitamin D3 24 ng/mL 25-Hydroxy Vitamin D Total 24 ng/mL 44 Comp Metabolic Panel 01/09/2012 Sodium 138 mmol/L 135-145 45 Potassium 4.7 mmol/L 3.5-5.0 45 Chloride 108 mmol/L 101-111 45 Co2 (Carbon Dioxide) 27.0 mmol/L 22-32 45 Anion Gap 3.0 mmol/L 2-11 45, 46 Glucose 112 mg/dL High 70-100 45 BUN 10 mg/dL 6-24 45 Creatinine 0.8 mg/dL 0.50-1.40 45 One Over Creatinine 1.25 45 BUN/Creatinine Ratio 12.5 8-20 45 Calcium 9.4 mg/dL 8.1-9.9 45 Total Protein 6.4 GM/DL 6.2-8.1 45 Albumin 4.2 GM/DL 3.6-5.4 45 Globulin 2.2 GM/DL 2-4 45 Albumin/Globulin Ratio 1.9 1-3 45 Bilirubin Total 0.6 mg/dL 0.4-1.5 45, 47 Alkaline Phosphatase 100 U/L 30-110 45 Alt (SGPT) 19 U/L 14-54 45 Ast (Sgot) 20 U/L 12-42 45 eGFR Non- 75.3 > 60 45 eGFR 96.9 > 60 45, 48 CBC Auto Diff 01/09/2012 White Blood Count 7.1 CUMM 4.8-10.8 45 Red Cell Count 4.68 CUMM 4.2-5.4 45 Hemoglobin 13.6 g/dL 12.0-16.0 45 Hematocrit 42 % 35-47 45 Mean Corpuscular Volume 89 um3 79-97 45 Mean Corpuscular Hemoglob 29 pg 27-31 45 Mean Corpuscular HGB Cone 33 g/dL 32-36 45 Redcell Distribution WDTH 13 % 10.5-15 45 Platelet Count 204 CUMM 150-450 45 Mean Platelet Volume 8.3 um3 7.4-10.4 45 Gran % 75.5 % 38-83 45 Lymph % 16.5 % Low 20-45 45 Mononuclear % 4.4 % 1-9 45 Eosinophil % 2.9 % 0-6 45 Basophil % 0.7 % 0-2 45 Abs Lymphs 1.2 1.0-4.8 45 Abs Mononuclear 0.3 0-0.8 45 Absolute Neutrophil Count 5.4 1.5-7.7 45 Abs Eosinophils 0.2 0-0.6 45 Abs Basophils 0.1 0-0.2 45 Clotest 07/11/2011 M <SEE 49 NOTE> Laboratory test 06/08/2011 Cytology <SEE 50 finding NOTE> Lipid Profile 06/02/2011 Triglyceride 84 mg/dL 40-200 (Trig/Chol/HDL) Cholesterol 178 mg/dL Less Than 200 51 High Density Lipoprotein 42 mg/dL 40-60 52 Cholesterol/HDL Ratio 4.24 AVERAGE 1-4.44 Low Density Lipoprotein 119 mg/dL High Less Than 100 53 Laboratory test finding 06/02/2011 Glucose 95 mg/dL 70-100 Urine Culture & 09/27/2010 Urine Culture ESCHERICHIA COLI 54 Sensitivi Sensitivi Sensitivities For Urine 09/27/2010 Ampicillin <=2 Culture Amikacin <=2 Ciprofloxacin <=0.25 Ceftriaxone <=1 Cefazolin <=4 Nitrofurantoin <=16 Gentamicin <=1 Imipenem <=1 Levofloxacin <=0.12 Trimeth-Sulfa <=20 Ceftazidime <=1 Tigecycline <=0.5 Piperacillin/Tazobactam KB 30 1 SEE RESULT BELOW Name: DORENE STEPHENSON : [address]: Ashlyn Cunningham MD Acct: [id number] Unit: [id number] AGE: 56 Location: [facility] Re12/18/16 SEX: F Status: REG REF SPEC: [id number] ROSALINA: 12/18/16 [facility] DR: Ashlyn Cunningham MD REQ: [id number] RECD: 12/19/16-8838 STATUS: SOUT _ ORDERED: TP IMAGE ANAL, HPV/Thin Prep, HPV 16/18 GENE COMMENTS: [id number] FINAL DIAGNOSIS Negative for Intraepithelial lesion or Malignancy A. Ectocervical/Endocervical Specimen Adequacy: Satisfactory of evaluation Transformation zone component cannot be definitely identified due to presence of atrophy or other hormonal changes Patient Information: HPV: High risk HPV RNA testing regardless of pap results. HPV 16/18 Genotype Reflex Actual Specimen Date: 12/18/16 LMP If Unknown: many yrs ago Spec Date if unknown: 2012 ?: N Post Menopausal?: Y Hysterectomy?: N Date Time Test Result Flag (u) Normal Range 12/18/16 1740 HPV RNA RFLX GE Negative Negative The high-risk HPV types detected by the assay include: 16, 18, 31, 33, 35, 39, 45, 51, 52, 56, 58, 59, 66, and 68. Signed (signature on file) MERRY Mendoza(ASCP) 12/20 1250 This Pap test was evaluated with the assistance of the Scrip-tPrep Test Imaging System. Due to cytologic findings at the phone operator microscope, comprehensive manual rescreening by a Automation Specialist may be required. The Pap Smear is a screening test designed to aid in the detection of premalignant and malignant conditions of the uterine cervix. It is not a diagnostic procedure and should not be used as the sole means of detecting cervical cancer. Both false- positive and false- negative reports do occur. Depending on your risk status, a Pap smear should be obtained and evaluated every 1-3 years. END OF REPORT * ML=Testing performed at Main Lab DEPARTMENT OF PATHOLOGY, [address] [place] [address] RUN DATE: 12/20/16 [facility] LAB LIVE PAGE 1 Patient: DORENE STEPHENSON [id number] (Continued) Jason Fontanez M.D. Director [facility] # [id number] 2 [id number] 3 The high-risk HPV types detected by the assay include: 16, 18, 31, 33, 35, 39, 45, 51, 52, 56, 58, 59, 66, and 68. 4 Desirable <150 Borderline high 150-199 High 200-499 Very High >500 5 Desirable <200 Borderline high 200-239 High >239 6 Low <40 Desirable: 40-60 High: >60 7 Desirable: <100 mg/dL Near Optimal: 100-129 mg/dL Borderline High: 130-159 mg/dL High: 160-189 mg/dL Very High: >189 mg/dL 8 Because ethnic data is not always readily available, this report includes an eGFR for both -Americans and non- Americans. The National Kidney Disease Education Program (NKDEP) does not endorse the use of the MDRD equation for patients that are not between the ages of 18 and 70, are , have extremes of body size, muscle mass, or nutritional status, or are non- or non-. According to the National Kidney Foundation, irrespective of diagnosis, the stage of the disease is based on the level of kidney function: Stage Description GFR(mL/min/1.73 m(2)) 1 Kidney damage with normal or decreased GFR 90 2 Kidney damage with mild decrease in GFR 60-89 3 Moderate decrease in GFR 30-59 4 Severe decrease in GFR 15-29 5 Kidney failure <15 (or dialysis) 9 Because ethnic data is not always readily available, this report includes an eGFR for both -Americans and non- Americans. The National Kidney Disease Education Program (NKDEP) does not endorse the use of the MDRD equation for patients that are not between the ages of 18 and 70, are , have extremes of body size, muscle mass, or nutritional status, or are non- or non-. According to the National Kidney Foundation, irrespective of diagnosis, the stage of the disease is based on the level of kidney function: Stage Description GFR(mL/min/1.73 m(2)) 1 Kidney damage with normal or decreased GFR 90 2 Kidney damage with mild decrease in GFR 60-89 3 Moderate decrease in GFR 30-59 4 Severe decrease in GFR 15-29 5 Kidney failure <15 (or dialysis) 10 KYS Severe Sepsis and Septic Shock Management Bundle Measure requires all lactic acids initially measuring >2.0 mmol/L be repeated. 11 Because ethnic data is not always readily available, this report includes an eGFR for both -Americans and non- Americans. The National Kidney Disease Education Program (NKDEP) does not endorse the use of the MDRD equation for patients that are not between the ages of 18 and 70, are , have extremes of body size, muscle mass, or nutritional status, or are non- or non-. According to the National Kidney Foundation, irrespective of diagnosis, the stage of the disease is based on the level of kidney function: Stage Description GFR(mL/min/1.73 m(2)) 1 Kidney damage with normal or decreased GFR 90 2 Kidney damage with mild decrease in GFR 60-89 3 Moderate decrease in GFR 30-59 4 Severe decrease in GFR 15-29 5 Kidney failure <15 (or dialysis) 12 Acute inflammation: >10.00 13 SEE RESULT BELOW Name: DORENE STEPHENSON : [address]: Smith Key MD Acct: [id number] Unit: [id number] AGE: 56 Location: ED Re03/05/16 SEX: F Status: DEP ER SPEC: [id number] ROSALINA: 03/05/[address]: Smith Key MD REQ: [id number] RECD: 03/05/16 STATUS: MICHEL ZUNIGA DR: Ashlyn Cunningham MD _ SOURCE: URINE SPDESC: ORDERED: Urine Culture Procedure Result Reported Site Urine Culture Final 03/08/16- 28 ML Organism 1 KLEBSIELLA PNEUMONIAE [place] Count >100,000 (Many) CFU/ML 1. KLEBSIELLA PNEUMONIAE M.I.C. RX --------- ------ Ampicillin R Cefazolin <=4 S Cefepime <=1 S Ceftriaxone <=1 S Ciprofloxacin <=0.25 S Gentamicin <=1 S Levofloxacin <=0.12 S Meropenem <=0.25 S Nitrofurantoin <=16 S Tetracycline 2 S Pipercillin/Tazobactam <=4 S Trimethoprim/Sulfamethoxazole <=20 S Amoxicillin/Clavulanic Acid <=2 S Aztreonam <=1 S Contact the Microbiology Department for any additional antibiotic reporting. * ML - MAIN LAB ([facility]) . END OF REPORT * ML=Testing performed at Main Lab DEPARTMENT OF PATHOLOGY, [address] [place] [address] Jason Fontanez M.D. Director [facility] # [id number] 14 Because ethnic data is not always readily available, this report includes an eGFR for both -Americans and non- Americans. The National Kidney Disease Education Program (NKDEP) does not endorse the use of the MDRD equation for patients that are not between the ages of 18 and 70, are , have extremes of body size, muscle mass, or nutritional status, or are non- or non-. According to the National Kidney Foundation, irrespective of diagnosis, the stage of the disease is based on the level of kidney function: Stage Description GFR(mL/min/1.73 m(2)) 1 Kidney damage with normal or decreased GFR 90 2 Kidney damage with mild decrease in GFR 60-89 3 Moderate decrease in GFR 30-59 4 Severe decrease in GFR 15-29 5 Kidney failure <15 (or dialysis) 15 SEE RESULT BELOW Name: DORENE STEPHENSON : [address]: Ashlyn Cunningham MD Acct: [id number] Unit: [id number] AGE: 54 Location: [facility] Re09/17/14 SEX: F Status: REG REF SPEC: [id number] ROSALINA: 09/17/14-1330 [facility] DR: Ashlyn Cunningham MD REQ: [id number] RECD: 09/17/142599 STATUS: RES _ SOURCE: STOOL SPDESC: ORDERED: Stool Culture, C. diff Amp DNA Procedure Result Verified Site Stool Culture PENDING Stool Specimen Description Final 09/18/14- 0649 ML Stool Color Light Brown Stool Form Nonformed Stool Consistency Mucoid Shiga Toxin 1 2 Final 09/18/14- 1145 ML Organism 1 Negative Shiga Toxin 1 2 Immunochromatographic Assay C. difficile Amplified DNA Final 09/18/14- 1340 ML Organism 1 Neg: No C. difficile detected Assay tests for toxigenic C. difficile with Pathogen Locus (PALOC) TEST LIMITATIONS: Assay does not distinguish between viable and nonviable organisms. Test results are to be used in conjunction with information available from the patient clinical evaluation and other diagnostic procedures. Two distinct groups have been identified that can harbor C. difficile asymptomatically at very high rates. Colonization at rates up to 50% and higher have been reported in infants and rates CONTINUED ON NEXT PAGE * ML=Testing performed at Main Lab DEPARTMENT OF PATHOLOGY, [address] [place] [address] Jason Fontanez M.D. Director [facility] # [id number] Patient: DORENE STEPHENSON [id number] (Continued) Specimen: [id number] Collected: 09/17/14 Received: 09/17/14-1431 (Continued) Procedure Result Verified Site C. difficile Amplified DNA Final (continued) 09/18/14- 0 up to 32% in cystic fibrosis patients. * ML - [facility] ([facility]) . END OF REPORT * ML=Testing performed at Main Lab DEPARTMENT OF PATHOLOGY, [address] [place] [address] Jason Fontanez M.D. Director [facility] # [id number] 16 SEE RESULT BELOW Name: DORENE STEPHENSON Joseluis : [address]: Ashlyn Cunningham MD Acct: [id number] Unit: [id number] AGE: 54 Location: [facility] Re09/17/14 SEX: F Status: REG REF SPEC: [id number] ROSALINA: 09/17/14-1330 [facility] DR: Ashlyn Cunningham MD REQ: [id number] RECD: 09/17/14 STATUS: COMP _ SOURCE: STOOL SPDESC: ORDERED: Stool Culture, C. diff Amp DNA Procedure Result Verified Site Stool Culture Final 09/20/14- 09 ML Result No enteric pathogens isolated Testing for Salmonella, Shigella, Aeromonas, Plesiomonas, Yersinia and Campylobacter are included in a Stool Culture. Vibrio spp not routinely tested for in a stool culture. If testing is desired, please request specifically when placing test order. Sensitivities not routinely performed on stool isolates, as antibiotics may prolong the carriage rate of bacteria. Please contact the microbiology lab if sensitivities are required. Stool Specimen Description Final 09/18/14- 0649 ML Stool Color Light Brown Stool Form Nonformed Stool Consistency Mucoid Shiga Toxin 1 2 Final 09/18/14- 1145 ML Organism 1 Negative Shiga Toxin 1 2 Immunochromatographic Assay CONTINUED ON NEXT PAGE * ML=Testing performed at [facility] DEPARTMENT OF PATHOLOGY, [address] [place] [address] Jason Fontanez M.D. Director [facility] # [id number] Patient: DORENE STEPHENSON [id number] (Continued) Specimen: [id number] Collected: 09/17/14133 Received: 09/17/14-1432 (Continued) Procedure Result Verified Site Shiga Toxin 1 2 Final (continued) 09/18/14- 1145 C. difficile Amplified DNA Final 09/18/14- 1340 ML Organism 1 Neg: No C. difficile detected Assay tests for toxigenic C. difficile with Pathogen Locus (PALOC) TEST LIMITATIONS: Assay does not distinguish between viable and nonviable organisms. Test results are to be used in conjunction with information available from the patient clinical evaluation and other diagnostic procedures. Two distinct groups have been identified that can harbor C. difficile asymptomatically at very high rates. Colonization at rates up to 50% and higher have been reported in infants and rates up to 32% in cystic fibrosis patients. * ML - MAIN LAB ([facility]) . END OF REPORT * ML=Testing performed at Main Lab DEPARTMENT OF PATHOLOGY, [address] [place] [address] Jason Fontanez M.D. Director [facility] # [id number] 17 Interpretation: Weak Positive (4.0-10.0) REFERENCE VALUE <4.0 (Negative) Test Performed by: [address] [address] [place] Gatherer: Da Salazar II, M.D., Ph.D. 18 RESULT: Celiac disease possible. Consider biopsy. Test Performed by: [address] [address] [place] Gat[employer]r: Da Salazar II, M.D., Ph.D. 19 Because ethnic data is not always readily available, this report includes an eGFR for both -Americans and non- Americans. The National Kidney Disease Education Program (NKDEP) does not endorse the use of the MDRD equation for patients that are not between the ages of 18 and 70, are , have extremes of body size, muscle mass, or nutritional status, or are non- or non-. According to the National Kidney Foundation, irrespective of diagnosis, the stage of the disease is based on the level of kidney function: Stage Description GFR(mL/min/1.73 m(2)) 1 Kidney damage with normal or decreased GFR 90 2 Kidney damage with mild decrease in GFR 60-89 3 Moderate decrease in GFR 30-59 4 Severe decrease in GFR 15-29 5 Kidney failure <15 (or dialysis) 20 Acute inflammation: >10.00 21 Desirable <150 Borderline high 150-199 High 200-499 Very High >500 22 Desirable <200 Borderline high 200-239 High >239 23 Low <40 Desirable: 40-60 High: >60 24 Desirable <100 Near Optimal 100-129 Borderline high 130-159 High 160-189 Very High >189 25 Because ethnic data is not always readily available, this report includes an eGFR for both -Americans and non- Americans. The National Kidney Disease Education Program (NKDEP) does not endorse the use of the MDRD equation for patients that are not between the ages of 18 and 70, are , have extremes of body size, muscle mass, or nutritional status, or are non- or non-. According to the National Kidney Foundation, irrespective of diagnosis, the stage of the disease is based on the level of kidney function: Stage Description GFR(mL/min/1.73 m(2)) 1 Kidney damage with normal or decreased GFR 90 2 Kidney damage with mild decrease in GFR 60-89 3 Moderate decrease in GFR 30-59 4 Severe decrease in GFR 15-29 5 Kidney failure <15 (or dialysis) 26 REFERENCE VALUE 25-HYDROXY D TOTAL (D2+D3) Optimum levels in the healthy population are 20-50, patients with bone disease may benefit from higher levels within this range. Test Performed by: [facility] - [address] [address] [place] Gatherer: Stephen Jones M.D. 27 RUN DATE: 04/16/14 [facility] LAB LIVE PAGE 1 RUN TIME: [address] [place] [id number] Specimen Inquiry Name: DORENE STEPHENSON : [address]: Ashlyn Cunningham MD Acct: [id number] Unit: [id number] AGE: 54 Location: [facility] Re04/14/14 SEX: F Status: REG REF SPEC: [id number] ROSALINA: 04/14/[address]: Ashlyn Cunningham MD REQ: [id number] RECD: 04/14/14 STATUS: MICHEL ZUNIGA DR: Hollie Hartley MD _ SOURCE: URINE SPDESC: ORDERED: Urine Culture QUERIES: Medent Number [id number] Procedure Result Verified Site Urine Culture Final 04/16/14- 1056 ML Organism 1 ENTEROCOCCUS SPECIES GP D [place] Count 75-100,000 (Many) CFU/ML 1. ENTEROCOCCUS SPECIES GP D M.I.C. RX --------- ------ Ampicillin <=2 S Penicillin 4 S Ciprofloxacin <=0.5 S Gentamicin High Level S Levofloxacin 1 S Linezolid 2 S Nitrofurantoin <=16 S * Quinupristin/Dalfopristin 4 R * Streptomycin High Level S Tetracycline >=16 R Tigecycline <=0.12 S Vancomycin 1 S Imipenem-Deduced S * Ampicillin/Sulbactam-Deduced S * These antibiotics are not available in the [facility] Formulary Contact the Microbiology Department for any additional antibiotic reporting. END OF REPORT * ML=Testing performed at Main Lab DEPARTMENT OF PATHOLOGY, [address] [place] [address] Jason Fontanez M.D. Director [facility] # [id number] 28 Please get this done soon 29 Please get this done soon 30 Please get this done soon 31 Please get this done soon 32 Please get this done soon 33 -- REFERENCE VALUE -- 25-HYDROXY D TOTAL (D2+D3) Optimum levels in the healthy population are 20-50, patients with bone disease may benefit from higher levels within this range. Test Performed by: [place] [address] [place] [employer]r: Keith Glass III, M.D. 34 Serologic response to B. burgdorferi infection is not detected, but cannot rule out early infection during which low or undetectable antibody levels to B. burgdorferi may be present. If clinically indicated, a new serum specimen should be submitted in 7-14 days. Test Performed by: [place] [address] [place] Gatherer: Keith Glass III, M.D. 35 -- REFERENCE VALUE -- <20.0 (Negative) Test Performed by: [place] [address] [place] Gatherer: Keith Glass III, M.D. 36 Please get this done soon 37 Please get this done soon 38 Because ethnic data is not always readily available, this report includes an eGFR for both -Americans and non- Americans. The National Kidney Disease Education Program (NKDEP) does not endorse the use of the MDRD equation for patients that are not between the ages of 18 and 70, are , have extremes of body size, muscle mass, or nutritional status, or are non- or non-. According to the National Kidney Foundation, irrespective of diagnosis, the stage of the disease is based on the level of kidney function: Stage Description GFR(mL/min/1.73 m(2)) 1 Kidney damage with normal or decreased GFR 90 2 Kidney damage with mild decrease in GFR 60-89 3 Moderate decrease in GFR 30-59 4 Severe decrease in GFR 15-29 5 Kidney failure <15 (or dialysis) 39 RUN DATE: 02/28/13 [facility] LAB LIVE PAGE 1 RUN TIME: [address] [place] [id number] Specimen Inquiry Name: DORENE STEPHENSON : [address]: Brielle Donato MD Acct: [id number] Unit: [id number] AGE: 53 Location: [facility] Re02/27/13 SEX: F Status: REG REF SPEC: [id number] ROSALINA: 02/27/13-1357 [facility] DR: Brielle Donato MD REQ: [id number] RECD: 02/27/134526 STATUS: SOUT _ ORDERED: IMAGE ANALYSIS FINAL DIAGNOSIS Negative for Intraepithelial lesion or Malignancy A. Ectocervical/Endocervical Specimen Adequacy: Satisfactory of evaluation Transformation zone component identified Patient Information: HPV: Thin Layer Pap Test w/reflex to high risk HPV DNA testing when ASCUS Actual Specimen Date: 02/27/13 LMP If Unknown: age 43 ?: N Post Menopausal?: Y Hysterectomy?: N Previous Abnormal Pap Smears?:N Signed (signature on file) MERRY Lucas (ASCP) 02/28 1253 This Pap test was evaluated with the assistance of the ThinPrep Test Imaging System. Due to cytologic findings at the phone operator microscope, comprehensive manual rescreening by a Automation Specialist may be required. The Pap Smear is a screening test designed to aid in the detection of premalignant and malignant conditions of the uterine cervix. It is not a diagnostic procedure and should not be used as the sole means of detecting cervical cancer. Both false- positive and false- negative reports do occur. Depending on your risk status, a Pap smear shoudl be obtained and evaluated every 1-3 years. END OF REPORT * ML=Testing performed at Main Lab DEPARTMENT OF PATHOLOGY, [address] [place] [address] Jason Fontanez M.D. Director [facility] Permit #[id number] 40 -- REFERENCE VALUE -- 25-HYDROXY D TOTAL (D2+D3) Optimum levels in the healthy population are 20-50, patients with bone disease may benefit from higher levels within this range. Test Performed by: [address] [address] [place] Gatherer: Keith Glass III, M.D. 41 HDL Interpretation: Undesirable: High Risk: Less than 40 mg/dL Desirable: Low Risk: Greater than 60 mg/dL 42 LDL Interpretation: Low Risk Optimal Level: LDL Less than 100 mg/dL Near or Above Optimal: LDL 100-129 mg/dL Borderline High Risk: LDL 130-159 mg/dL High Risk: LDL 160-189 mg/dL Very High Risk: LDL Greater than 189 mg/dL 43 FASTING 12 HOUR 44 Interpretation: 10-24 (mild to moderate deficiency) -- REFERENCE VALUE -- 25-HYDROXY D TOTAL (D2+D3) Optimum levels in the normal population are 25-80 Test Performed by: [address] [address] [place] Gatherer: Keith Glass III, M.D. R 45 FAX RESULTS TO AT FAX NUMBER [phone] 46 Anion gap measurement may be of limited value in the presence of any alkalosis, especially in a combined acid base disorder. . 47 A metabolite of Naproxen, O-desmethylnaproxen, has been shown to interfere with the Jendrsteveik-Ele method for measuring total bilirubin. Samples from patients who have taken Naproxen have shown spurious elevation in total bilirubin levels. 48 Because ethnic data is not always readily available, this report includes an eGFR for both -Americans and non- Americans. The National Kidney Disease Education Program (NKDEP) does not endorse the use of the MDRD equation for patients that are not between the ages of 18 and 70, are , have extremes of body size, muscle mass, or nutritional status, or are non- or non-. According to the National Kidney Foundation, irrespective of diagnosis, the stage of the disease is based on the level of kidney function: Stage Description GFR(mL/min/1.73 m(2)) 1 Kidney damage with normal or decreased GFR 90 2 Kidney damage with mild decrease in GFR 60-89 3 Moderate decrease in GFR 30-59 4 Severe decrease in GFR 15-29 5 Kidney failure <15 (or dialysis) 49 RUN DATE: 07/12/11 [facility] NMI LIVE PAGE 1 RUN TIME: 2 Specimen Inquiry RUN USER: INTERFACE Name: DORENE STEPHENSON Status: REG REF Re07/11/11 Age/Sex: 51/F Unit#: [id number] Location: 2ENDO : 58 SPEC #: [id number] ROSALINA: 07/11/11 STATUS: COMP REQ #: [id number] RECD: 07/11/11 [facility] DR: Jerry TATE,Tito Molina SOURCE: CLOTEST ENTR: 07/11/[address]: Kinga TATE,Brielle [facility] ORDERED: CLOTEST ACT WKST: MISC 07/12/11 #1 Procedure Result Verified Site > CLOTEST Final -0752 ML CLOTEST NEGATIVE [facility] Permit #[id number] [address] [place] [address] DEPARTMENT OF PATHOLOGY, [address] [place] [id number] [facility] Permit #[id number] Maria Del Carmen Carey M.D. Manager Costing 50 ---- RUN DATE: 06/09/11 [facility] NMI LIVE PAGE 1 RUN TIME: 1214 Specimen Inquiry RUN USER: INTERFACE -- Name: DORENE STEPHENSON Status: REG REF Re06/08/11 Age/Sex: 51/F Unit#: [id number] Location: [facility] : 59 -- Specimen: [id number] Spec Date: 06/08/[address] [facility] Dr: Brielle Donato MD Spec Type: CYTOLOGY Received: 06/09/11 Copies to: SOURCE ECTOCERVICAL/ENDOCERVICAL Thin Prep with Reflex HPV Test PATIENT INFORMATION ACTUAL COLLECTION DATE: 06/08/11 ? No POST MENOPAUSAL? No HYSTERECTOMY? No PREVIOUS ABNORMAL PAP SMEARS No PATIENT HISTORY: Last menstrual period at age 42 ADEQUACY OF SPECIMEN Satisfactory for evaluation * Transformation zone component identified * DIAGNOSIS NEGATIVE FOR INTRAEPITHELIAL LESION OR MALIGNANCY * Fungal organisms morphologically consistent with Jaz species * This Pap test was evaluated with the assistance of the ThinPrep Pap Test Imaging System. The Pap Smear is a screening test designed to aid in the detection of premalign ant and malignant conditions of the uterine cervix. It is not a diagnostic procedure a nd should not be used as the sole means of detecting cervical cancer. Both false- positiv e and false-negative reports do occur. Depending on your risk status, a Pap smear forrest uld be obtained and evaluated every one to three years. Final Interpretation electronically signed by: Sunday HOWARD(ASCP) 06/09/11 121 4 -- -- DEPARTMENT OF PATHOLOGY, [address] [place] [address] [facility] Permit #[id number] Jason Fotnanez M.D. Director Apryl Ellis M.D. Desolderer Dir websteror -- 51 CHOLESTEROL INTERPRETATION: Desirable: Less than 200 MG/DL Borderline-High Risk: 200-239 MG/DL High-Risk: 240 MG/DL and over 52 HDL INTERPRETATION: Undesirable: High Risk: Less than 40 MG/DL Desirable: Low Risk: Greater than 60 MG/DL 53 LDL INTERPRETATION: Low Risk Optimal Level: LDL Less than 100 MG/DL Near or Above Optimal: LDL 100-129 MG/DL Borderline High Risk: LDL 130-159 MG/DL High Risk: LDL 160-189 MG/DL Very High Risk: LDL Greater than 189 MG/DL 54 50^25-50,000 ORGANISMS/ML (MODERATE)^CCU Procedures Date CPT Code Description Status 03/07/2017 13967 Inject Tendon Sheath Or Ligament Aponeurosis Eg Plantar Completed Fascia 12/18/2016 42178 Admin & Interp Of Health Risk Assessment w/ Patient Completed 07/19/2016 Colonoscopy Completed 05/31/2016 Mammogram Completed 10/16/2014 35820 ECHO Stress Test Incl Perf Contiuous ekg Monitoring Completed W/Phys Superv 10/16/2014 66266 ECHO Stress Test Incl Perf Contiuous ekg Monitoring Completed W/Phys Superv 09/09/2014 99279 EKG Tracing & Interpretation Completed 10/20/2013 Mammogram Completed 10/20/2013 Bone Mineral Density Test Completed 02/27/2013 18055 EKG Tracing & Interpretation Completed 10/04/2012 Mammogram Completed 06/08/2011 98094 EKG Tracing & Interpretation Completed 11/30/2009 Mammogram Completed 11/19/2009 55102 EKG Tracing & Interpretation Completed 02/16/2009 Colonoscopy Completed 11/16/2008 78385 Pulmonary Function><Bronchodilator Completed 09/03/2008 12608 Biopsy Cervix, Single Or Multiple, Or Local Excision Of Completed Lesion 08/24/2008 51275 EKG Tracing & Interpretation Completed 01/25/2007 29576 EKG Tracing & Interpretation Completed 12/28/2005 35734 EKG Tracing & Interpretation Completed 12/28/2005 20272 EKG Tracing & Interpretation Completed 12/28/2004 Bone Mineral Density Test Completed Encounters Type Date Location Provider CPT E/M Dx Office Visit 05/31/2017 [facility] Internal Medicine Ashlyn Cunningham 88701 R05 2:00p - Eric Joyce Office Visit 03/23/2017 [facility] [place] [address] M18.0 11:15a C.M.A. M65.322 M65.351 M65.342 G56.03 Office Visit 03/07/2017 10:30a [facility] [place] [address] M65.322 C.M.A. M18.0 M65.351 M65.342 Office Visit 03/02/2017 11:40a [facility] Internal Medicine Ashlyn Cunningham 54426 M65.30 - Eric Joyce M54.9 Z23 Office Visit 12/18/2016 4:20p [facility] Internal Medicine Ashlyn Cunningham 79789 Z00.00 - Eric Joyce J30.9 Z12.4 Office Visit 10/17/2016 9:00a [facility] Internal Medicine Ashlyn Octavio, 16698 J06.9 - [place] M.DEz Office Visit 05/18/2016 11:00a [facility] Ashlyn Octavio, 39829 R07.89 - [place] M.DEz Z12.31 Office Visit 03/27/2016 1:00p [facility] Medicine Ashlyn Octavio 41084 R13.10 - [place] M.DEz Office Visit 03/07/2016 11:20a [facility] Ashlyn Octavio, 19343 K59.00 - [place] M.Jesse R79.82 Office Visit 05/13/2015 2:30p [facility], 63540 M18.0 C.MEzAEz Joyce Office Visit 04/26/2015 4:20p [facility] Internal Medicine Ashlyn Cunningham 70878 R19.7 - [place] Joseluis.Jesse M19.049 F33.8 M79.644 M79.645 Office Visit 2015 3:20p [facility] [place] [address] R11.2 [place] Z23 Office Visit 01/19/2015 1:40p [facility] [place] [address] J06.9 - [place] Office Visit 11/17/2014 3:00p [facility] Medicine Ashlyn Cunningham 68485 V70.0 - [place] Joseluis.Jesse V76.12 238.2 Office Visit 09/09/2014 4:00p [facility] Internal Medicine Ashlyn Cunningham 54163 786.09 - [place] M.DEz 787.91 780.79 Office Visit 07/13/2014 2:30p [facility] [place] [address] 847.0 - [place] Office Visit 05/08/2014 2:20p [facility] Medicine Ashlyn Cunningham 71664 465.9 - [place] M.DEz Office Visit 09/16/2013 3:40p [facility] Medicine Ashlyn Cunningham 38402 465.9 - [place] M.Jesse 268.9 V76.10 733.99 389.9 311 Office Visit 04/08/2013 2:40p [facility] Imelda Gurrola, N.P. 77869 719.49 - [place] 780.79 Office Visit 02/27/2013 1:00p [facility] - Brielle Donato M.D., 39110 V70.0 [place] FACP V72.31 V76.10 272.0 268.9 753.0 V04.81 Office Visit 03/20/2012 11:00a [facility] - Brielle Donato M.D., 85973 564.1 [place] FACP 311 724.2 708.1 Office Visit 03/06/2012 1:00p [facility] - Brielle Donato M.D., 20503 311 [place] FACP 564.1 780.79 Office Visit 02/28/2012 3:40p [facility] - Brielle Donato M.D., 09750 564.1 [place] FACP Office Visit 02/22/2012 1:40p [facility] - Brielle Donato M.D., 79135 564.1 [place] FACP 268.9 V76.10 Office Visit 02/09/2012 11:20a [facility] - Hollie Lynn M.D. 15631 786.2 [place] 530.81 V04.81 Office Visit 01/26/2012 10:20a [facility] Hollie Lynn M.D. 05513 786.2 - [place] Office Visit 09/21/2011 3:20p [facility] Brielle Donato M.D., 37210 530.81 - [place] FACP Office Visit 06/08/2011 3:20p [facility] Brielle Donato M.D., 42659 V70.0 - [place] FACP V72.31 V76.10 272.0 530.81 296.7 753.0 368.9 627.9 Office Visit 01/10/2011 3:20p DO Not Use [facility] Brielle Donato, 61512 530.81 MTwila, FACP 724.2 V04.81 Office Visit 09/09/2010 10:00a DO Not Use Imelda Gurrola, 10032 724.2 [facility] [employer] [facility] N.P. Office Visit 03/22/2010 10:15a DO Not Use Brielle Maria Del Carmen Donato, 32413 300.00 [employer] [facility] FACP 311 Office Visit 03/09/2010 10:15a DO Not Use [facility] Brielle Kinga, 17967 786.2 M.D., FACP 300.00 Office Visit 02/04/2010 11:45a DO Not Use Ashlyn Cunningham, 92964 786.2 [employer] [facility] M.D. Office Visit 01/17/2010 4:30p DO Not Use Imelda Gurrola, N.P. 57950 466.0 [facility] 519.11 Office Visit 12/07/2009 1:00p DO Not Use [facility] Brielle Kinga, 34419 708.9 M.D., FACP Office Visit 11/19/2009 3:00p DO Not Use [employer] [facility] Brielle Kinga, 11216 V72.31 M.D., FACP Office Visit 11/25/2008 9:45a DO Not Use [facility] Brielle Kinga, 87912 493.82 M.D., FACP 311 300.00 Office Visit 11/09/2008 10:15a DO Not Use [employer] [facility] Brielle Kinga, 39727 786.2 M.D., FACP Office Visit 09/22/2008 3:30p DO Not Use [employer] Brielle Kinga, 68258 466.0 M.D., FACP Office Visit 08/24/2008 9:15a DO Not Use [employer] [facility] Brielle Kinga, 57631 V72.31 M.D., FACP 622.7 786.05 272.0 311 Office Visit 08/14/2008 11:45a DO Not Use [facility] Imelda Gurrola, 32501 466.0 N.P. 519.11 Office Visit 08/07/2008 1:15p DO Not Use [facility] Brielle Kinga, 51494 466.0 M.D., FACP Office Visit 07/30/2008 1:30p DO Not Use [facility] Brielle Kinga, 13908 465.9 M.D., FACP Office Visit 07/21/2008 3:00p DO Not Use [facility] Brielle Kinga, 42855 296.7 M.D., FACP 300.00 Office Visit 03/03/2008 10:45a DO Not Use [facility] Brielle Kinga, 63979 780.79 M.D., FACP Office Visit 02/13/2008 3:30p DO Not Use [facility] Brielle Kinga, 40132 466.0 M.D., FACP V04.81 Office Visit 01/31/2008 4:00p DO Not Use [employer] [facility] Brielle Kinga, 14692 466.0 M.D., FACP Office Visit 09/03/2007 12:15p DO Not Use [employer] [facility] Brielle Kinga, 67196 780.79 M.D., FACP Office Visit 03/28/2007 4:15p DO Not Use [employer] [facility] Brielle Kinga, 66253 272.4 M.D., FACP Office Visit 01/25/2007 1:15p DO Not Use [employer] [facility] Brielle Kinga, 91579 V72.31 M.D., FACP V04.81 V06.1 Office Visit 03/26/2006 11:45a DO Not Use [employer] [facility] Imelda Ortacarli, 62121 466.0 N.P. Office Visit 01/26/2006 10:00a DO Not Use [employer] [facility] Brielel Donato M.D., 73783 780.6 FACP 461.9 Office Visit 12/28/2005 3:45p DO Not Use [employer] [facility] Brielle Kinga, 91734 V72.31 M.D., FACP Plan of Care Future Appointment(s):07/12/2017 3:40 pm - Ashlyn Cunningham M.D. at [facility] Internal [facility] - Dmpalrmll51/31/2018 3:00 pm - Ashlyn Cunningham M.D. at [facility] - Faglfopsg20/02/2018 - Fermin Gamino, NPR05 CoughNew Medication:Ventolin HFA 108(90 Base) mcg/ActFluticasone Propionate 50 mcg/ ActComments:Continue using the Flovent twice daily.I have prescribed the albuterol inhaler. Use this, two puffs every 4-6 hours, as needed for cough/ shortness of breath. I have also prescribed the fluticasone in the event that the cough is being induced by post nasal drip. Use this two inhalations once daily for at least two weeks.Follow up:3-4 weeks with JACLYN or SANJUANITA
--- OUTSIDE RECORDS SUMMARY | 2017-06-24 16:46 | XMS REPORT ---
:1960 External Reference #:[id number] [facility] Address [address] [address] Phone [phone] Care Team Providers Name Role Phone Ashlyn Cunningham MD Primary Care Physician Unavailable Payers Type Date Identification Numbers Payment Provider Subscriber Commercial Policy Number: [id number] [employer] Dorene Blauvelt PayID: [id number] [address] [place] [address] Commercial Effective: 2014 Policy Number: Aetna-ADRIANACINDY Stephenson [id number] Expires: 2016 Group Number: [id number] [address] PayID: [id number] [place] [address] Commercial Effective: 2010 Policy Number: Aetna-CPHL Da Samayoa [id number] Expires: 2014 PayID: [id number] [address] [place] [address] Medigap Part B Effective: Policy Number: [employer]na Insurance Dorene Blauvelt 2005 [id number] Expires: 2010 Group Number: [id number] [address] PayID: [id number] [place] [address] Problems Date Description Provider Status Onset: 01/10/2011 [...] Form Strength Qnty SIG Indications Ordering Provider Aerochamber Plus 05/31 Active Misc 1unit spacer per R05 s plan - use Cotton, with MTwila inhaler Flovent HFA 03/19 Active Aerosol 110mcg/Ac 12gm 2 puffs t twice Cotton, daily M.DEz Fluoxetine 09/09 Active Capsules 20mg 1 tab qhs Maria Del Carmen Donato, SEVEN Fluoxetine HCL Active Capsules 40mg 1 by mouth Unknown /0000 every pm Allergy Relief Active Capsules 25mg Unknown /0000 Probiotic Active Capsules 1 by mouth Unknown /0000 every day Methylphenidate Active Tablets ER 54mg 30tab 1 by mouth Ashlyn HCL ER /0000 s every day Maria Del Carmen Cunningham Melatonin Active Capsules 1mg 1 tab Unknown /0000 before bedtime Azithromycin 10/18 Hx Tablets 250mg 6tabs 2 tabs by 465.9 mouth on Cotton, - day 1; 1 M.D. 10/25 tab mouth every day on days 2-5 Ondansetron 02/12 Hx Tablets 4mg 30tab dissolve R11.2 Dispers s one tablet Stevenson, CR[employer] CONTROL SPECIALIST - orally 05/18 every hours as needed for nausea. Cheratussin ac 01/19 Hx Syrup 100-10mg/ 118ml take 5-10 J06.9 Fermin /2014 5ML milliliter Stevenson, [employer]ST CONTROL SPECIALIST - s every 01/27 4-6 hours /2014 as needed for cough. Fluticasone 01/19 Hx Suspension 50mcg/Act 16uni 2 sprays J06.9 Fermin Propionate ts each Stevenson, CR[employer] PEST CONTROL SPECIALIST - nostril 02/03 qd. Baclofen 07/13 Hx Tablets 10mg 20tab take 04/24 847.0 Fermin s tab every Stevenson, CR[employer]ST CONTROL SPECIALIST - 8 hours as 09/09 needed for muscle spasm Azithromycin 05/08 Hx Tablets 250mg 6tabs 2 tabs by 465.9 Ashlyn /2015 mouth on Cotton, - day 1; 1 M.D. 07/13 tab by mouth every day on days 2-5 Pulmicort 05/08 Hx Aerosol 90mcg/Act 1unit 2 puff 465.9 Ashlyn Flexhal s twice a Cotton, - day M.D. 07/13 Proair HFA 05/08 Hx Aerosol 108(90Bas 1unit 2 puffs 4 465.9 Ashlyn /2015 e) s times Cotton, - mcg/Act daily as M.D. 07/13 needed Nitrofurantoin 04/17 Hx Capsules 100mg 14cap 1 by mouth Monohyd s twice a Cotton, - day x 7 M.D. Benzonatate 09/19 Hx Capsules 200mg 45cap take 1 s capsule by Cotton, - mouth M.D. 05/07 times a day if needed Flovent HFA 09/19 Hx Aerosol 110mcg/Ac 12gm 2 puffs t twice Cotton, - daily M.D. 05/07 Azithromycin 09/16 Hx Tablets 250mg 6tabs 2 tabs by 465.9 Ashlyn /2014 mouth on Cotton, - day 1; 1 M.D. 09/27 tab by mouth every day on days 2-5 Ergocalciferol 03/10 Hx Capsules [id number] 8caps 1 cap by Brielle mouth Kinag, - every week M.D., FACP 09/16 Omeprazole 08/[address] 20mg 180ca take 1 ps capsule Octavio, - once daily M.D. 07/13 Ergocalciferol 02/21 Hx Capsules [id number] 8caps 1 cap by 268.9 mouth Kinga, - every week M.D., FACP 02/27 Guaiatussin ac 01/25 Hx Syrup 100-10mg/ 118ml take 10 ml 786.2 5ML by mouth Shane, - every 6 [...] Kinga, - area every M.D., FACP Albuterol 10/15 Hx 1unit 2 puffs 4 786.2 Ashlyn Inhaler /2009 s times Octavio, - daily as M.D. 03/22 Flovent HFA 02/04 Hx Aerosol 110mcg/Ac 12gm 2 puffs 786.2 t twice Shane, - daily M.D. 09/16 Azithromycin 10/15 Hx Tablets 250mg 6tabs 2 tabs po 786.2 Ashlyn on day 1; Octavio, - 1 tab po M.D. 03/09 qd on 2-5 Prednisone 10/15 Hx Tablets 10mg 20tab 4 tabs po 786.2 Ashlyn s days 1-2; Octavio, - 3 tabs po M.D. 03/09 on 3-4, 2 tabs po on days 5-6, 1 tab po days 7-8 Medrol Dosepak 01/21 Hx Tablets 4mg 1tabs follow package Kinga, - directions M.D., [facility] 02/04 take with food Zithromax Z-Obi 01/17 Hx Tablets 250mg 1Pack two po initially Kinga, - then one M.D., [facility] 01/27 po daily Proair HFA 01/17 Hx Aerosol 108(90Bas 1unit 1 to 2 e) mcg/ac s inhalation Kinga, - s before M.D., [facility] 03/09 exercise or as needed Lorazepam 12/07 Hx Tablets 0.5mg 1 tablet daily as Kinga, - needed M.D., [facility] 03/09 0.5 cc Sure Dose 12/07 Hx 100un use as Brielle Plus Syringes its directed Kinga - MTwila, [facility] 01/17 Trileptal 11/19 Hx 150mg 2 tablets every Kinga, - evening M.D., [facility] 03/09 Fluoxetine HCL 11/19 Hx Capsules 40mg 30cap 1 daily s Juan Donato M.D., [facility] 09/09 Concerta 11/19 Hx Tablets ER 36mg 30tab 1 daily s Juan Donato M.D., [facility] 03/09 Strattera 09/26 Hx Juan Donato M.D., [facility] 11/19 Prozac 09/26 Hx - 09/26 Abilify 09/26 Hx Juan Donato M.D., [facility] 11/19 Omeprazole 09/[address] 20mg 30cap Take one s capsule Kinga, - twice M.D., FACP 01/25 daily Pristiq 09/26 Hx Tablets ER 50mg 90tab Take 1 24HR s Tablet Kinga, - Daily M.D., [facility] 03/20 Activella 09/26 Hx Tablets 1-0.5mg 3tabs take 1 tablet Cotton, - daily M.D. 07/13 Concerta Hx Tablets ER 36mg 1 po qd Unknown /0000 - 10/17 Concerta 00/00 Hx Tablets ER 18mg 30tab 1 po qd Unknown /0000 s - 09/09 Trileptal 00/00 Hx Tablets 300mg 2 At Night Unknown /0000 (600mg - daily) 09/16 Trileptal 00/00 Hx Tablets 150mg 360ta 1 by mouth Unknown /0000 bs in am - 09/09 [place] / Hx Tablets ER 300mg 1 by mouth Filler, Carbonate ER /0000 daily MD Hollie - 03/07 Prozac 00/ Hx Capsules 10mg 30cap 1 po qd Unknown /0000 s - 06/08 Abilify 00/00 Hx Tablets 2mg 30tab 1 po qpm 296.7 Unknown / s - 09/20 Loratadine 00/ Hx Tablets 10mg 30tab Unknown Allergy Relief /0000 Dispers s - 04/26 Probiotic 4X / Hx Capsules 1 po qd Unknown / - 02/27 Pristiq / Hx Tablets ER 100mg 1 po qd Unknown /0000 24HR - 02/27 Effexor XR 00/00 Hx Caps ER 150mg 30cap daily Unknown /0000 24HR s - 10/21 Abilify 00/00 Hx Tablets 2mg 30tab 1 po qpm Unknown /0000 s - 07/13 Fish Oil 00/ Hx Capsules DR 1000mg 180ca 1 by mouth Unknown /0000 ps every day - 09/09 Vitamin D 00/00 Hx Tablets 1000Unit 1 tab each Unknown (Cholecalciferol / day by ) - mouth 09/09 Multi-Day 00/00 Hx Tablets 1 by mouth Unknown /0000 every day - 01/19 Probiotic Daily 00/00 Hx Capsules 30cap Unknown /0000 s - 09/09 Lorazepam 00/00 Hx Tablets 0.5mg as Unknown /0000 directed - 10/17 Methylphenidate 00/00 Hx 10mg Unknown HCL /0000 - 10/15 Omeprazole 00/00 Hx Capsules 1 by mouth Unknown /0000 every day - 12/17 Vitamin D3 00/00 Hx Capsules 2000Unit 1 by mouth Unknown /0000 every day - 03/27 Effexor XR 00/00 Hx Caps ER 150mg 1 by mouth [...] Code Status Date Vaccine Reaction Lot # [id number] Given 03/02/2017 Influenza Virus Vaccine, No allergies noted - [id number] Quadrivalent, Split, no immediate side Preservative Free effects seen - patient tolerated well. 20386 Given 03/27/2016 Influenza Virus Vaccine, no immediate reaction [id number] Quadrivalent, Split Virus, noted ... [place] [address] Given 2015 Influenza Virus Vaccine, [id number] Quadrivalent, Split, Preservative Free 20423 Given 02/25/2014 Flu Vaccine Split Virus [id number] Preservative Free For Indiv 3Yr Older 73064 Given 02/27/2013 Flu Vaccine Split Virus [id number] Preservative Free For Indiv 3Yr Older [id number] Given 02/09/2012 Fluvirin Im 3Yrs And Older [id number] 46957 Given 01/10/2011 Influenza Virus 3Yrs & [id number] Over 28605 Given 02/13/2008 Influenza Virus 3Yrs & Over 28551 Given 01/25/2007 Tdap - Tetanus/Diptheria/Acellula r Pertussis 31016 Given 01/25/2007 Influenza Virus 3Yrs & Over 69831 Given 01/25/2007 Influenza Virus 3Yrs & Over Vital Signs Date Vital Result Comment 05/31/2017 Weight 149.00 lb Heart Rate 107 [...] Non- 83.5 >60 Egfr 107.4 >60 8 Laboratory test finding 10/14/2016 Troponin-I (TnI) 0.00 ng/mL <0.04 Comp Metabolic Panel 10/14/2016 Sodium 136 mmol/L [...] Non- 87.7 >60 Egfr 112.8 >60 9 Urinalysis Profile 10/14/2016 Urine Color Straw Urine Appearance Clear Urine Specific [place] 1.004 Low 1.010-1.030 Urine pH 6.0 5-9 Urine Urobilinogen Negative Negative Urine Ketones Negative Negative Urine Protein Negative Negative Urine Leukocytes Negative Negative Urine Blood Negative Negative Urine Nitrite Negative Negative Urine Bilirubin Negative Negative Urine Glucose Negative Negative CBC No Diff 10/14/2016 White Blood Count 8.4 10^3/uL 3.5-10.8 Red Blood Count 4.99 10^6/uL 4.0-5.4 Hemoglobin 14.0 g/dL 12.0-16.0 Hematocrit 42 % 35-47 Mean Corpuscular Volume 85 fL 80-97 Mean Corpuscular Hemoglobin 28 pg 27-31 Mean Corpuscular HGB Conc 33 g/dL 31-36 Red Cell Distribution Width 13 % 10.5-15 Platelet Count 188 10^3/uL 150-450 Mean Platelet Volume 8 um3 7.4-10.4 CBC Auto Diff 03/05/2016 White Blood Count [...] Dna Stool Culture SEE RESULT BELOW 16 Laboratory test finding 09/16/2014 Erythrocyte Sed Rate 13 mm/Hr 0-30 TSH (Thyroid Stim Horm) 2.17 ?IU/mL 0.34-5.60 C Reactive Protein 4.07 mg/L < 5.00 17 CBC Auto Diff 09/16/2014 White Blood Count [...] Blood Cells % 0 Comp Metabolic Panel 09/16/2014 Sodium 133 mmol/L [...] Egfr Non- 73.4 >60 Egfr 94.4 >60 18 Celiac Panel 09/16/2014 Tissue Transglutaminase IgA Ab 8.0 U/mL 19 Immunoglobulin A 91 mg/dL 61 - 356 Celiac Interpretation See Comment 20 Lipid Profile (Trig/Chol/HDL) 04/14/2014 Triglycerides 145 [...] 111.7 >60 25 Laboratory test finding 04/14/2014 [place] 0.33 mmol/L Low 0.6-1.2 TSH (Thyroid Stimulating Horm) 1.98 IU/mL 0.34-5.60 Urinalysis Profile 04/14/2014 Urine Color Yellow Urine Appearance Clear Urine Specific [place] 1.013 1.010-1.030 Urine pH 7.0 5-9 Urine [...] Erythrocyte Sed Rate 10 mm/Hr 0-30 37 Vitamin D, 25 Hydroxy 02/27/2013 25-Hydroxy Vitamin D2 <4.0 ng/mL 25-Hydroxy Vitamin D3 29 ng/mL 25-Hydroxy Vitamin D Total 29 ng/mL 38 Laboratory test 02/27/2013 Cytology RUN DATE: finding <SEE NOTE> Laboratory test 02/27/2013 TSH (Thyroid 1.26 miu/mL 0.34-5.60 finding Stimulating Horm) Comp Metabolic Panel 02/27/2013 Sodium 137 [...] Egfr Non- 87.2 >60 Egfr 112.1 >60 40 Lipid Profile (Trig/Chol/HDL) 02/24/2013 Triglycerides 125 mg/dL 40-200 Cholesterol 176 mg/dL Less than 200 HDL Cholesterol 34 mg/dL Low 40-60 41 Cholesterol/HDL Ratio 5.2 Average High 1-4.44 LDL Cholesterol 117.0 High Less Than 100 42 Laboratory test finding 02/24/2013 Glucose 92 mg/dL 70-100 43 Laboratory test finding 05/23/2012 [place] 0.3 mmol/L Low 0.5-1.5 Vitamin D, 25 Hydroxy 02/09/2012 25-Hydroxy Vitamin D2 <4.0 ng/mL 25-Hydroxy Vitamin D3 24 ng/mL 25-Hydroxy Vitamin D Total 24 ng/mL 44 Laboratory test finding 02/09/2012 TSH (Thyroid Stimulating 1.36 MIU/ML 0.34-5.60 Horm) Free T4 0.56 NG/ML Low 0.61-1.24 Comp Metabolic Panel 01/09/2012 Sodium 138 mmol/L [...] [address]: Ashlyn Cunningham MD Acct: [id number] Unit: [id number] AGE: 56 Location: [facility] Re12/18/16 SEX: F Status: REG REF SPEC: [id number] ROSALINA: 12/18/16-[address] [facility] [address]: Ashlyn Cunningham MD REQ: [id number] RECD: 12/19/16-5 STATUS: SOUT _ ORDERED: TP IMAGE ANAL, HPV/Thin Prep, HPV 16/18 GENE COMMENTS: [id number] FINAL DIAGNOSIS Negative for Intraepithelial lesion or [...] Time Test Result Flag (u) Normal Range 12/18/160 HPV RNA RFLX GE Negative Negative The high-risk HPV types detected by the assay include: 16, 18, 31, 33, 35, 39, 45, 51, 52, 56, 58, 59, 66, and 68. Signed (signature on file) MERRY Mendoza(ASCP) 12/20 1250 This Pap test was evaluated with the assistance of the PairyPrep Test Imaging System. Due to cytologic findings at the corporate health consultant microscope, comprehensive manual rescreening by a Hose Maker may be required. The Pap Smear is [...] performed at Main Lab DEPARTMENT OF PATHOLOGY, [address] [place] [address] RUN DATE: 12/20/16 [facility] LAB LIVE PAGE 1 Patient: DORENE STEPHENSON [id number] (Continued) Jason Fontanez M.D. Director [facility] # [id number] 2 [id number] 3 The high-risk HPV types detected by [...] 5 Kidney failure <15 (or dialysis) 10 [facility] Severe Sepsis and Septic Shock Management Bundle [...] inflammation: >10.00 13 SEE RESULT BELOW Name: AUDREYJENA KOCHRISTOPHER Huggins : [address]: Smith Key MD Acct: [id number] Unit: [id number] AGE: 56 Location: ED Re03/05/16 SEX: F Status: DEP ER SPEC: [id number] ROSALINA: 03/05/[address]: Smith Kye MD REQ: [id number] RECD: 03/05/16 STATUS: MICHEL LOVELACE DR: Ashlyn Cunningham MD _ SOURCE: URINE [facility]: ORDERED: Urine Culture Procedure Result Reported Site Urine Culture Final 03/08/16827 ML Organism 1 KLEBSIELLA PNEUMONIAE [place] Count >100,000 (Many) CFU/ML 1. KLEBSIELLA PNEUMONIAE [...] any additional antibiotic reporting. * ML - [facility] ([facility]) . END OF REPORT * ML=Testing performed at Main Lab DEPARTMENT OF PATHOLOGY, [address] [place] [address] Jason Fontanez M.D. Director [facility] # [id number] 14 Because ethnic data is not always [...] [address]: Ashlyn Cunningham MD Acct: [id number] Unit: [id number] AGE: 54 Location: [facility] Re09/17/14 SEX: F Status: REG REF SPEC: [id number] ROSALINA: 09/17/14-[address] [facility] [address]: Ashlyn Cunningham MD REQ: [id number] RECD: 09/17/14 STATUS: RES _ [facility] ORDERED: Stool Culture, C. diff Amp DNA [...] performed at Main Lab DEPARTMENT OF PATHOLOGY, [address] [place] [address] Jason Fontanez M.D. Director [facility] # [id number] Patient: DORENE STEPHENSON [id number] (Continued) Specimen: [id number] Collected: 09/17/14-133 Received: 09/17/14-6302 (Continued) Procedure Result Verified Site C. difficile Amplified DNA Final (continued) 09/18/14- 1340 up to 32% in cystic fibrosis patients. * ML - MAIN LAB ([facility]) . END OF REPORT * ML=Testing performed at Main Lab DEPARTMENT OF PATHOLOGY, [address] [place] [address] Jason Fontanez M.D. Director [facility] # [id number] 16 SEE RESULT BELOW Name: DORENE STEPHENSON : [address]: Ashlyn Cunningham MD Acct: [id number] Unit: [id number] AGE: 54 Location: [facility] Re09/17/14 SEX: F Status: REG REF SPEC: [id number] ROSALINA: 09/17/14-[address] [facility] [address]: Ashlyn Cunningham MD REQ: [id number] RECD: 09/17/14 STATUS: COMP _ SOURCE: STOOL SPDC: ORDERED: Stool Culture, CEz schwartz Amp DNA Procedure Result Verified Site Stool Culture Final 09/20/14- 0936 ML Result No enteric pathogens isolated Testing [...] performed at Main Lab DEPARTMENT OF PATHOLOGY, [address] [place] [address] Jason Fontanez M.D. Director [facility] # [id number] Patient: DORENE STEPHENSON [id number] (Continued) Specimen: [id number] Collected: 09/17/14133 Received: 09/17/14 (Continued) Procedure Result Verified Site Shiga Toxin [...] in cystic fibrosis patients. * ML - [facility] ([facility]) . END OF REPORT * ML=Testing performed at [facility] DEPARTMENT OF PATHOLOGY, [address] [place] [address] Jason Fontanez M.D. Director [facility] # [id number] 17 Acute inflammation: >10.00 18 Because ethnic data is not always readily [...] 15-29 5 Kidney failure <15 (or dialysis) 19 Interpretation: Weak Positive (4.0-10.0) REFERENCE VALUE <4.0 (Negative) Test Performed by: [address] [address] [employer]ating Furnace: Da Salazar II, M.D., Ph.D. 20 RESULT: Celiac disease possible. Consider biopsy. Test Performed by: [address] [address] [employer]: Da Salazar II, M.D., Ph.D. 21 Desirable <150 Borderline high 150-199 High [...] levels within this range. Test Performed by: [facility] - [address] [address] [employer]ating Furnace: Stephen Jones M.D. 27 RUN DATE: 04/16/14 [facility] LAB LIVE PAGE 1 RUN TIME: [address] [place] [address] Specimen Inquiry Name: DESHAWN STEPHENSONDAVEY Huggins : 1960 [facility] [address]: Ashlyn Cunningham MD Acct: [id number] Unit: [id number] AGE: 54 Location: [facility] Re04/14/14 SEX: F Status: REG REF SPEC: [id number] ROSALINA: 04/14/[address] [facility] [address]: Ashlyn Cunningham MD REQ: [id number] RECD: 04/14/14 STATUS: MICHEL ZUNIGA DR: Hollie Hartley MD _ SOURCE: URINE SPDESC: ORDERED: Urine Culture QUERIES: Medent Number [id number] Procedure Result Verified Site Urine Culture Final 04/16/14- 1056 ML Organism 1 ENTEROCOCCUS SPECIES GP D [place] Count 75-100,000 (Many) CFU/ML 1. ENTEROCOCCUS SPECIES [...] These antibiotics are not available in the [facility] Formulary Contact the Microbiology Department for any additional antibiotic reporting. END OF REPORT * ML=Testing performed at Main Lab DEPARTMENT OF PATHOLOGY, [address] [place] [address] Jason Fontanez M.D. Director [facility] # [id number] 28 Please get this done soon 29 Please get this done soon 30 Please get this done soon 31 Please get this done soon 32 Please get this done soon 33 -- REFERENCE VALUE -- 25-HYDROXY D TOTAL (D2+D3) Optimum levels in the healthy population are 20-50, patients with bone disease may benefit from higher levels within this range. Test Performed by: [address] [address] [employer] Coating Furnace: Keith Glass III, M.D. 34 Serologic response to B. burgdorferi infection is not detected, but cannot rule out early infection during which low or undetectable antibody levels to B. burgdorferi may be present. If clinically indicated, a new serum specimen should be submitted in 7-14 days. Test Performed by: [address] [address] Operator Coating Furnace: Kieth Glass III, M.D. 35 -- REFERENCE VALUE -- <20.0 (Negative) Test Performed by: [facility] - [address] [address] [employer] Coating Furnace: Keith Glass III, M.D. 36 Please get this done soon 37 Please get this done soon 38 -- REFERENCE VALUE -- 25-HYDROXY D TOTAL (D2+D3) Optimum levels in the healthy population are 20-50, patients with bone disease may benefit from higher levels within this range. Test Performed by: [facility] - [address] [address] Operator Coating Furnace: Keith Glass III, M.D. 39 RUN DATE: 02/28/13 [facility] LIVE PAGE 1 RUN TIME: [address] [place] [address] Specimen Inquiry Name: DORENE STEPHENSON : [address]: Brielle Donato MD Acct: [id number] Unit: [id number] AGE: 53 Location: [facility] Re02/27/13 SEX: F Status: REG REF SPEC: [id number] ROSALINA: 02/27/13-[address]: Brielle Donato MD REQ: [id number] RECD: 02/27/137836 STATUS: SOUT _ ORDERED: IMAGE ANALYSIS FINAL [...] Abnormal Pap Smears?:N Signed (signature on file) Arden MERRY Soliman (ASCP) 02/28 1535 This Pap test was evaluated with the assistance of the PairyPrep Test Imaging System. Due to cytologic findings at the corporate health consultant microscope, comprehensive manual rescreening by a Hose Maker may be required. The Pap Smear is [...] performed at Main Lab DEPARTMENT OF PATHOLOGY, [address] [place] [address] Jason Fontanez M.D. Director [facility] Permit #[id number] 40 Because ethnic data is not always readily [...] 15-29 5 Kidney failure <15 (or dialysis) 41 HDL Interpretation: Undesirable: High Risk: Less [...] normal population are 25-80 Test Performed by: [place] [address] [employer] Coating Furnace: Keith lGass III, M.D. R 45 FAX RESULTS TO AT FAX NUMBER [phone] 46 Anion gap measurement may be of limited value in the presence of any alkalosis, especially in a combined acid base disorder. . 47 A metabolite of Naproxen, O-desmethylnaproxen, has been shown to interfere with the [place] method for measuring total bilirubin. Samples from [...] <15 (or dialysis) 49 RUN DATE: 07/12/11 [facility] NMI LIVE PAGE 1 RUN TIME: 751 Specimen Inquiry RUN USER: INTERFACE Name: DORENE STEPHENSON Status: REG REF Re07/11/11 Age/Sex: 51/F Unit#: [id number] Location: [address] [place] [address].O.B. : 58 SPEC #: [id number] ROSALINA: 07/11/11-1210 STATUS: MICHEL REQ #: [id number] RECD: 07/11/11-[address]: Jerry TATE,Tito Molina SOURCE: CLOTEST ENTR: 07/11/11-[address]: Kinga TATE,Brielle SPDESC: ORDERED: CLOTEST ACT WKST: MISC 07/12/11 #1 Procedure Result Verified Site > CLOTEST Final -0752 ML CLOTEST NEGATIVE ML - [facility] Permit #[id number] [address] [place] [address] DEPARTMENT OF PATHOLOGY, [address] [place] [address] [facility] Permit #[id number] Jason Fontanez M.D. Director Apryl Ellis M.D. Embedded Engineer 50 ---- RUN DATE: 06/09/11 [facility] NMI LIVE PAGE 1 RUN TIME: 1214 Specimen Inquiry RUN USER: INTERFACE -- Name: DORENE STEPHENSON Joseluis Status: REG REF Re06/08/11 Age/Sex: 51/F Unit#: [id number] Location: [facility] : 58 -- Specimen: [id number] [id number] Spec Date: 06/08/[address]: Brielle Donato MD Spec Type: CYTOLOGY [...] 121 4 -- -- DEPARTMENT OF PATHOLOGY, [address] [place] [address] [facility] Permit #[id number] Jason Fontanez M.D. Director Apryl Ellis M.D. Office Analyst genaro -- 51 CHOLESTEROL INTERPRETATION: Desirable: Less than [...] (MODERATE)^CCU Procedures Date CPT Code Description Status 03/07/201705079 Inject Tendon Sheath Or Ligament Aponeurosis Eg Plantar Completed Fascia 12/18/2016 28330 Admin & Interp Of Health Risk Assessment w/ Patient Completed 07/19/2016 Colonoscopy Completed 05/31/2016 Mammogram Completed 10/16/2014 94124 ECHO Stress Test Incl Perf Contiuous ekg Monitoring Completed W/Phys Superv 10/16/2014 86050 ECHO Stress Test Incl Perf Contiuous ekg Monitoring Completed W/Phys Superv 09/09/2014 01839 EKG Tracing & Interpretation Completed 10/20/2013 Mammogram Completed 10/20/2013 Bone Mineral Density Test Completed 02/27/2013 14250 EKG Tracing & Interpretation Completed 10/04/2012 Mammogram Completed 06/08/2011 81424 EKG Tracing & Interpretation Completed 11/30/2009 Mammogram Completed 11/19/2009 44406 EKG Tracing & Interpretation Completed 02/16/2009 Colonoscopy Completed 11/16/2008 95849 Pulmonary Function><Bronchodilator Completed 09/03/2008 69842 Biopsy Cervix, Single Or Multiple, Or Local Excision Of Completed Lesion 08/24/2008 04960 EKG Tracing & Interpretation Completed 01/25/2007 78434 EKG Tracing & Interpretation Completed 12/28/2005 10828 EKG Tracing & Interpretation Completed 12/28/2005 24452 EKG Tracing & Interpretation Completed 12/28/2004 Bone Mineral Density Test Completed Encounters Type Date Location Provider CPT E/M Dx Office Visit 03/23/2017 11:15a [facility] [place] [address] M18.0 C.M.A. M65.322 M65.351 M65.342 G56.03 Office Visit 03/07/2017 10:30a [facility] [place] [address] M65.322 C.M.A. M18.0 M65.351 M65.342 Office Visit 03/02/2017 11:40a [facility] Ashlyn Cunningham 29948 M65.30 - Eric Jyoce M54.9 Z23 Office Visit 12/18/2016 4:20p [facility] Ashlyn Cunningham 54206 Z00.00 - Eric Joyec J30.9 Z12.4 Office Visit 10/17/2016 9:00a [facility] Ashlyn Cunningham 66011 J06.9 - Eric Joyce Office Visit 05/18/2016 11:00a [facility] Ashlyn Cunningham 60962 R07.89 - Eric Joyce Z12.31 Office Visit 03/27/2016 1:00p [facility] Ashlyn Cunningham 14389 R13.10 - Eric Joyce Office Visit 03/07/2016 11:20a [facility] [facility] Ashlyn Cunningham [address] K59.00 - Eric Joyce R79.82 Office Visit 05/13/2015 2:30p [facility] 49776 M18.0 C.M.Susan Joyce Office Visit 04/26/2015 4:20p [facility] Ashlyn Cunningham 07660 R19.7 - Eric Joyce M19.049 F33.8 M79.644 M79.645 Office Visit 2015 3:20p [facility] - Fermin Gamino, MAX 36631 R11.2 [place] Z23 Office Visit 01/19/2015 1:40p [facility] Fermin MAX Gamino 09763 J06.9 - [place] Office Visit 11/17/2014 3:00p [facility] Ashlyn Cotton, 02524 V70.0 - [place] M.D. V76.12 238.2 Office Visit 09/09/2014 4:00p [facility] Ashlyn Cunningham 52699 786.09 - [place] M.D. 787.91 780.79 Office Visit 07/13/2014 2:30p [facility] [place] [address] 847.0 - [place] Office Visit 05/08/2014 2:20p [facility] Ashlyn Cunningham 84121 465.9 - [place] M.D. Office Visit 09/16/2013 3:40p [facility] Ashlyn Cunningham 10953 465.9 - [place] M.DEz 268.9 V76.10 733.99 389.9 311 Office Visit 04/08/2013 2:40p [facility] Imelda Gurrola, N.P. 12790 719.49 - [place] 780.79 Office Visit 02/27/2013 1:00p [facility] - Brielle Donato M.D., 75191 V70.0 [place] FACP V72.31 V76.10 272.0 268.9 753.0 V04.81 Office Visit 03/20/2012 11:00a [facility] - Brielle Donato M.D., 50953 564.1 [place] FACP 311 724.2 708.1 Office Visit 03/06/2012 1:00p [facility] - Brielle Donato M.D., 06403 311 [place] FACP 564.1 780.79 Office Visit 02/28/2012 3:40p [facility] - Brielle Donato M.D., 94848 564.1 [place] FACP Office Visit 02/22/2012 1:40p [facility] - Brielle Donato M.D., 29672 564.1 [place] FACP 268.9 V76.10 Office Visit 02/09/2012 11:20a [facility] - Hollie Lynn M.D. 42964 786.2 [place] 530.81 V04.81 Office Visit 01/26/2012 10:20a [facility] Hollie Lynn M.D. 27340 786.2 - [place] Office Visit 09/21/2011 3:20p [facility] Brielle Donato M.D., 35876 530.81 - [place] FACP Office Visit 06/08/2011 3:20p [facility] Brielle Donato M.D., 95488 V70.0 - [place] FACP V72.31 V76.10 272.0 530.81 296.7 753.0 368.9 627.9 Office Visit 01/10/2011 3:20p DO Not Use [facility] Brielle Donato 93682 530.81 M.D., FACP 724.2 V04.81 Office Visit 09/09/2010 10:00a DO Not Use Imelda Gurrola, 54084 724.2 [facility] N.P. Office Visit 03/22/2010 10:15a DO Not Use Brielle Donato M.D., 29017 300.00 [facility] FACP 311 Office Visit 03/09/2010 10:15a DO Not Use [facility] Brielle Donato 26360 786.2 M.D., FACP 300.00 Office Visit 02/04/2010 11:45a DO Not Use Ashlyn Cunningham 61878 786.2 [facility] M.D. Office Visit 01/17/2010 4:30p DO Not Use Imelda Gurrola, N.P. 66542 466.0 [facility] 519.11 Office Visit 12/07/2009 1:00p DO Not Use [facility] Brielle Donato, 32623 708.9 M.D., FACP Office Visit 11/19/2009 3:00p DO Not Use [facility] Brielle Donato 26347 V72.31 MEzDEz, FACP Office Visit 11/25/2008 9:45a DO Not Use [facility] Brielle Kinga, 91575 493.82 M.D., FACP 311 300.00 Office Visit 11/09/2008 10:15a DO Not Use [facility] Brielle Kinga, 36243 786.2 M.D., FACP Office Visit 09/22/2008 3:30p DO Not Use [facility] Brielle Kinga, 03896 466.0 M.D., FACP Office Visit 08/24/2008 9:15a DO Not Use [facility] Brielle Kinga, 57674 V72.31 M.D., FACP 622.7 786.05 272.0 311 Office Visit 08/14/2008 11:45a DO Not Use [facility] Imelda Varn, 19814 466.0 N.P. 519.11 Office Visit 08/07/2008 1:15p DO Not Use [facility] Brielle Kinga, 26784 466.0 M.D., FACP Office Visit 07/30/2008 1:30p DO Not Use [facility] Brielle Kinga, 17979 465.9 M.D., FACP Office Visit 07/21/2008 3:00p DO Not Use [facility] Brielle Kinga, 69657 296.7 M.D., FACP 300.00 Office Visit 03/03/2008 10:45a DO Not Use [facility] Brielle Kinga, 45206 780.79 M.D., FACP Office Visit 02/13/2008 3:30p DO Not Use [facility] Brielle Kinga, 14920 466.0 M.D., FACP V04.81 Office Visit 01/31/2008 4:00p DO Not Use [facility] Brielle Kinga, 78862 466.0 M.D., FACP Office Visit 09/03/2007 12:15p DO Not Use [facility] Brielle Kinga, 44931 780.79 M.D., FACP Office Visit 03/28/2007 4:15p DO Not Use [facility] Brielle Kinga, 83298 272.4 M.D., FACP Office Visit 01/25/2007 1:15p DO Not Use [facility] Brielle Donato, 30144 V72.31 Maria Del Carmen, FACP V04.81 V06.1 Office Visit 03/26/2006 11:45a DO Not Use [facility] Imelda Gurrola, 05607 466.0 N.P. Office Visit 01/26/2006 10:00a DO Not Use [facility] Brielle Donato M.D., 75295 780.6 FACP 461.9 Office Visit 12/28/2005 3:45p DO Not Use [facility] Brielle Donato, 03034 V72.31 Maria Del Carmen, [facility] Plan of Care Future Appointment(s):12/21/2017 3:00 pm - Ashlyn Cunningham M.D. at [facility] - Qlzancacy08/08/2018 - Ashlyn Cunningham M.D.R05 CoughNew Medication:Aerochamber PlusComments:Take the Flovent 2 puffs twice daily for 2 straight weeksTry using the spacerCall me with results . Chest Xray if no better in 2 weeks
[2017-06-24 16:58] VITALS: BP 128/69
--- NOTE | 2017-06-24 17:04 | UC ---
Respiratory Complaint HPI - HPI Summary HPI Summary: 57 y/o female presents to the urgent care c/o intermittent harsh cough, mostly non productive. Pt very concerned about flu. Pt using albuterol inhaler with spacer. Cough is paroxysmal. Pt reports cough stared about a week ago when she was fishing in the cold. She developed a lot of nasal congestion and +PND. Then cough and wheezing since yesterday. She saw her PCP about 2 days ago and Rx the albuterol inhaler and Flonase nasal spray. Last night she couldn't sleep b/c of cough. Pt denies chest pain, fever, abdominal pain, N/V/D, MCDANIEL, body aches. - History of Current Complaint Chief Complaint: UCRespiratory Stated Complaint: ASTHMA Time Seen by Provider: 06/24/17 17:03 Hx Obtained From: Patient Hx Last Menstrual Period: post ?: No Onset/Duration: Gradual Onset, Lasting Weeks - 1 week, Still Present, Worse Since - this morning when exposed to some dust Timing: Intermittent Episodes Severity Initially: Mild Severity Currently: Moderate Pain Intensity: 0 Pain Scale Used: 0-10 Numeric Character: Cough: Nonproductive Aggravating Factors: Deep Breaths, Recumbent Position Alleviating Factors: Bronchodilator, OTC Meds Associated Signs And Symptoms: Positive: Wheezing, URI, Nasal Congestion - Risk Factors Pulmonary Embolism Risk Factors: Negative Cardiac Risk Factors: Negative Pseudomonas Risk Factors: Negative Tuberculosis Risk Factors: Negative - Allergies/Home Medications Allergies/Adverse Reactions: Allergies Allergy/AdvReac Type Severity Reaction Status Date / Time No Known Allergies Allergy Verified 06/24/17 16:58 Home Medications: Home Medications Albuterol HFA INHALER* 2 puff INH QID PRN 06/24/17 [History Confirmed 06/24/17] Fluticasone DISKUS 250 MCG(NF) [Flovent Diskus 250 MCG(NF)] 1 puff INH BID 06/24 [History Confirmed 06/24/17] Melatonin/Pyridoxine HCl (B6) [Melatonin 1 mg Tablet] 1 tab PO BEDTIME 06/24/17 [History Confirmed 06/24/17] clonazePAM TAB(*) [Klonopin TAB(*)] 1 tab PO DAILY PRN 06/24/17 [History Confirmed 06/24/17] PMH/Surg Hx/FS Hx/Imm Hx Previously Healthy: Yes Respiratory History: Asthma Psychological History: Anxiety, Depression, Bipolar Disorder - Surgical History Surgical History: Yes Surgery Procedure, Year, and Place: , GALL BLADDER REMOVED, HERNIA REPAIR - Family History Known Family History: Positive: Hypertension, Renal Disease - Social History Occupation: Unemployed Lives: With Family Alcohol Use: Weekly Substance Use Type: None Smoking Status (MU): Never Smoked Tobacco Review of Systems Constitutional: Fatigue Skin: Negative Eyes: Negative ENT: Nasal Discharge, Sinus Congestion Respiratory: Shortness Of Breath, Cough, Other - wheezing Cardiovascular: Negative Gastrointestinal: Negative Genitourinary: Negative Motor: Negative Neurovascular: Negative Musculoskeletal: Negative Neurological: Negative Psychological: Negative Is Patient Immunocompromised?: No All Other Systems Reviewed And Are Negative: Yes Physical Exam - Summary Physical Exam Summary: VITAL SIGNS: Reviewed. GENERAL: Patient is a well developed and nourished female who is sitting comfortable in the examining table. Patient is not in any acute respiratory distress. HEAD AND FACE: No signs of trauma. No ecchymosis, hematomas or skull depressions. No sinus tenderness. edematous erythematous nasal mucosa with yellowish discharge, EYES: PERRLA, EOMI x 2, No injected conjunctiva, clear watery eyes, no nystagmus. No photophobia. EARS: Hearing grossly intact. Ear canals and tympanic membranes are within normal limits. MOUTH: Positive pharynx with erythema, no exudates,no palatal petechiae. no B/L tonsillar enlargement Uvula in midline. NECK: Supple, trachea is midline, Positive anterior cervical lymphadenopathy, no JVD, no carotid bruit, no c-spine tenderness, neck with full ROM. No meningeal signs, no Kernig's or brudzinskis signs. CHEST: Symmetric, no tenderness at palpation LUNGS: Breath sounds presents to auscultation bilaterally. B/Lscattered wheezing w/ mild rhonchi. No crackles. CVS: Regular rate and rhythm, S1 and S2 present, no murmurs or gallops appreciated. ABDOMEN: Soft, non-tender. No signs of distention. No rebound no guarding, and no masses palpated. Bowel sounds are normal. EXTREMITIES: FROM in all major joints, no edema, no cyanosis or clubbing. NEURO: Alert and oriented x 3. No acute neurological deficits. Speech is normal and follows commands. SKIN: Dry and warm Triage Information Reviewed: Yes Vital Signs: Initial Vital Signs Temp 99.5 F 06/24/17 16:52 Pulse 89 06/24/17 16:52 Resp 15 06/24/17 16:52 BP 128/69 06/24/17 16:52 Pulse Ox 98 06/24/17 16:52 Diagnostic Evaluation - Laboratory O2 Sat by Pulse Oximetry: 98 Respiratory Course/Dx - Course Course Of Treatment: 57 y/o female presents to the urgent care c/o intermittent harsh cough, mostly non productive. Pt very concerned about flu. Pt using albuterol inhaler with spacer. Cough is paroxysmal. Pt reports cough stared about a week ago when she was fishing in the cold. She developed a lot of nasal congestion and +PND. Then cough and wheezing since yesterday. She saw her PCP about 2 days ago and Rx the albuterol inhaler and Flonase nasal spray. Last night she couldn't sleep b/c of cough. Pt denies chest pain, fever, abdominal pain, N/V/D, MCDANIEL, body aches.Hx obtained. Pt w/ scattered wheezes and mild rhonchi on examination. Raspid Influenza A&B ordered:negative. PT w/ Asthma exacerbation. Pt given Prednisone PO and Duoneb Treatment, given by nurse. Pt tolerated well treatment and lungs improved, mild wheezing only in posterior RT lung, O2 sat 100%. Patient left the clinic ambulating and feeling better. Patient Rx Prednisone taper, Tessalon tabs PO and Z-yuri PO (to start only if not improvement of symptoms) , as directed below. The patient was recommended to increase fluid intake. Patient recommended to return to the clinic or go to the nearest ER if symptoms do not improve or worsen. Patient understood and agree w/ plan of care. - Differential Dx/Diagnosis Differential Diagnosis/HQI/PQRI: Asthma, Bronchitis, Influenza, Lower Resp Infection, Sinusitis Provider Diagnoses: 1- asthma exacerbation. 2-bronchitis Discharge - Discharge Plan Condition: Stable Disposition: HOME Prescriptions: Azithromyxin YURI (NF) [Z-Yuri (Zithromax) 250 mg tabs #6] 2 tab PO .TODAY, THEN 1 DAILY #6 tab Benzonatate CAP* [Tessalon 100 MG CAP*] 1 tab PO TID #21 cap Omeprazole CAP* [Prilosec CAP* 20 MG] 20 mg PO DAILY #30 cap. predniSONE TAB* [Deltasone TAB*] 20 mg PO DAILY #8 tab Patient Education Materials: Asthma (ED), Acute Bronchitis (ED) Referrals: Ashlyn Cunningham MD [Primary Care Provider] - 3 Days Additional Instructions: Respiratory Complaint HPI - HPI Summary HPI Summary: 57 y/o female presents to the urgent care c/o intermittent harsh cough, mostly non productive. Pt very concerned about "catching" flu. Pt using albuterol inhaler with spacer. Cough is paroxysmal, unable to breath in coughing jag. - History of Current Complaint Chief Complaint: UCRespiratory Stated Complaint: ASTHMA Time Seen by Provider: 06/24/17 17:03 Hx Obtained From: Patient Hx Last Menstrual Period: post ?: No Onset/Duration: Gradual Onset, Lasting Weeks - 1 week, Still Present, Worse Since - this morning when exposed to some dust Timing: Intermittent Episodes Severity Initially: Mild Severity Currently: Moderate Pain Intensity: 0 Pain Scale Used: 0-10 Numeric Character: Cough: Nonproductive Aggravating Factors: Deep Breaths, Recumbent Position Alleviating Factors: Bronchodilator, OTC Meds Associated Signs And Symptoms: Positive: Wheezing, URI, Nasal Congestion - Risk Factors Pulmonary Embolism Risk Factors: Negative Cardiac Risk Factors: Negative Pseudomonas Risk Factors: Negative Tuberculosis Risk Factors: Negative - Allergies/Home Medications Allergies/Adverse Reactions: Allergies Allergy/AdvReac Type Severity Reaction Status Date / Time No Known Allergies Allergy Verified 06/24/17 16:58 Home Medications: Home Medications Albuterol HFA INHALER* 2 puff INH QID PRN 06/24/17 [History Confirmed 06/24/17] Fluticasone DISKUS 250 MCG(NF) [Flovent Diskus 250 MCG(NF)] 1 puff INH BID 06/24 [History Confirmed 06/24/17] Melatonin/Pyridoxine HCl (B6) [Melatonin 1 mg Tablet] 1 tab PO BEDTIME 06/24/17 [History Confirmed 06/24/17] clonazePAM TAB(*) [Klonopin TAB(*)] 1 tab PO DAILY PRN 06/24/17 [History Confirmed 06/24/17] PMH/Surg Hx/FS Hx/Imm Hx Previously Healthy: Yes - Surgical History Surgical History: Yes Surgery Procedure, Year, and Place: , GALL BLADDER REMOVED, HERNIA REPAIR - Family History Known Family History: Positive: Hypertension, Renal Disease - Social History Alcohol Use: Weekly Substance Use Type: None Smoking Status (MU): Never Smoked Tobacco Physical Exam - Summary Physical Exam Summary: VITAL SIGNS: Reviewed. GENERAL: Patient is a well developed and nourished female who is sitting comfortable in the examining table. Patient is not in any acute respiratory distress. HEAD AND FACE: No signs of trauma. No ecchymosis, hematomas or skull depressions. No sinus tenderness. edematous erythematous nasal mucosa with yellowish discharge, EYES: PERRLA, EOMI x 2, No injected conjunctiva, clear watery eyes, no nystagmus. No photophobia. EARS: Hearing grossly intact. Ear canals and tympanic membranes are within normal limits. MOUTH: Positive pharynx with erythema, no exudates,no palatal petechiae. no B/L tonsillar enlargement Uvula in midline. NECK: Supple, trachea is midline, Positive anterior cervical lymphadenopathy, no JVD, no carotid bruit, no c-spine tenderness, neck with full ROM. No meningeal signs, no Kernig's or brudzinskis signs. CHEST: Symmetric, no tenderness at palpation LUNGS: Breath sounds presents to auscultation bilaterally. B/Lscattered wheezing w/ mild rhonchi. No crackles. CVS: Regular rate and rhythm, S1 and S2 present, no murmurs or gallops appreciated. ABDOMEN: Soft, non-tender. No signs of distention. No rebound no guarding, and no masses palpated. Bowel sounds are normal. EXTREMITIES: FROM in all major joints, no edema, no cyanosis or clubbing. NEURO: Alert and oriented x 3. No acute neurological deficits. Speech is normal and follows commands. SKIN: Dry and warm Triage Information Reviewed: Yes Vital Signs: Initial Vital Signs Temp 99.5 F 06/24/17 16:52 Pulse 89 06/24/17 16:52 Resp 15 06/24/17 16:52 BP 128/69 06/24/17 16:52 Pulse Ox 98 06/24/17 16:52 Diagnostic Evaluation - Laboratory O2 Sat by Pulse Oximetry: 98 Respiratory Course/Dx - Differential Dx/Diagnosis Provider Diagnoses: 1- asthma exacerbation. 2-bronchitis Discharge - Discharge Plan Condition: Stable Disposition: HOME Prescriptions: Azithromyxin YURI (NF) [Z-Yuri (Zithromax) 250 mg tabs #6] 2 tab PO .TODAY, THEN 1 DAILY #6 tab Benzonatate CAP* [Tessalon 100 MG CAP*] 1 tab PO TID #21 cap Omeprazole CAP* [Prilosec CAP* 20 MG] 20 mg PO DAILY #30 cap. predniSONE TAB* [Deltasone TAB*] 20 mg PO DAILY #8 tab Patient Education Materials: Asthma (ED), Acute Bronchitis (ED) Referrals: Ashlyn Cunningham MD [Primary Care Provider] - 3 Days Additional Instructions: 1-Please take full course of antibiotic to avoid resistance. if symptoms do not improve in 2 days 2-Take Prednisone PO as directed continue using the albuterol inhaler, and Tessalon tabs PO to alleviate cough and wheezing 3- If symptoms do not improve or worsen or your develop SOB with fever and severe wheezing please go immediately to the ER further evaluation and treatment. 4- F/u with your PCP in 3 days for further management on your Asthma 1-Please take full course of antibiotic to avoid resistance. if symptoms do not improve in 2 days 2-Take Prednisone PO as directed continue using the albuterol inhaler, and Tessalon tabs PO to alleviate cough and wheezing 3- If symptoms do not improve or worsen or your develop SOB with fever and severe wheezing please go immediately to the ER further evaluation and treatment. 4- F/u with your PCP in 3 days for further management on your Asthma
[2017-06-24] MEDS ORDERED: predniSONE TAB* 20 MG PO ONE (17:21)
[2017-06-24] MEDS ORDERED: Albuterol/Ipratropium NEB.SOL* Albuterol 2.5 MG/Ipratropium 0.5 MG 3 ML INH ONE (17:21)
== END 2017-06-24 18:21 | disposition home or self-care (01) ==
LOC: UCEAST 16:38
DX: J45.901 Unspecified asthma with (acute) exacerbation (principal)
CPT/HCPCS: 87502; 99213; A9270-GY; G0463; J7512

== ENCOUNTER 2017-08-25 10:47 | Emergency (ER) | payer OTHER ==
--- OUTSIDE RECORDS SUMMARY | 2017-08-25 11:08 | XMS REPORT ---
:1960 External Reference #:[id number] Author Organization [facility] 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 Active Onset: 07/04/2017 Cough Julieth Santana M.D. Active Onset: 07/04/2017 Atopic dermatitis Julieth Santana M.D. Active Family History Date Family Member(s) Problem(s) Comments Father Asthma Father Seasonal Allergies Father Chronic Obstructive Pulmonary Disease (COPD) Father due to Kidney Disease () Mother Chronic Obstructive Pulmonary I do not this she was Disease (COPD) diagnosed correctly First Sister Skin Disease/ rash First Sister Food Intolerance First Sister Asthma First Sister Seasonal Allergies First Sister Bronchitis First Sister Eczema First Sister ple chem sensitivity Second Sister Skin Disease/ rash Second Sister Seasonal Allergies Second Sister Eczema Second Sister PTDS Social History Type Date Description Comments Education Highest level completed, Bachelor's Degree Marital Status Legal Status: Lives With Spouse Lives With Cats Home Environment [place] Heat Home Environment Unfinished Basement Home Environment Cotton Mattress Cover 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 Home Environment Water Source: Well Home Environment Water Source: City Home Environment Lives in a 2 level wood frame home Home Environment Lives in an [place] house [place] the country Home Environment There is no basement Home Environment The basement is wet and sump pump used Home Environment Uses electric heating Home Environment Uses forced air heating Home Environment Uses propane gas heating Home Environment Has a window air conditioner Home Environment The floors are carpeted Home Environment The floors are wood Home Environment The home is [place] Home Environment There are draperies in the home Home Environment Uses air leaf size picker Home Environment Uses a dehumidifier Home Environment Pillows contain feathers Home Environment Pillows are not encased in an allergy proof case Home Environment Mattress is over 10 years old Home Environment Mattress is not encased in an allergy proof case Home Environment House hae a house built in 1971 with city water, coal stove, baseboard electric Have cottage on [facility] built [place] will bad well, new propane forced hot air & heat pumps & recent construction/remodeling Smoke-Free Work is smoke-free Smoke-Free Home is smoke-free Pets 2 cats Pets 2 dogs 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 Smoking Patient has never smoked Recreational Drug Use Never Used Drugs Allergies, Adverse Reactions, Alerts Date Description Reaction Status Severity Comments 07/04/2017 NKDA active Medications Medication Date Status Form Strength Qnty SIG Indications Ordering Provider Prednisone 07/27 Active Tablets 5mg 110ta 40 mg for 3 R05 Ayala /2018 bs days35 mg Uldrich, for 3 FOREPART LASTER-C days,30 mg for 3days,25mg for3 days,20mg for 3 days 15mg for 3 days,10 [id number] 5mg for3 days Symbicort 07/04 Active Aerosol 160-4.5mc 10.20 2 Julieth g/Act 0gm inhalations ja Santana&pm M.D. Zyrtec Allergy 07/04 Active Tablets 10mg 30tab 1 every day Julieth isabel Santana M.D. Omeprazole Active Capsules DR 20mg 30cap once daily Ayala s NEHAL White Fluoxetine HCL Active Capsules 20mg three tabs Unknown (PMDD) once daily Benzonatate Active Capsules 200mg 30cap 1 daily as Ayala / s needed NEHAL White Loratadine Active Tablets 10mg 1 by mouth every day Melatonin Active Tablets 1mg as needed Methylphenidate Active Tablets ER 54mg once daily Unknown HCL ER 24HR Ventolin HFA Active Aerosol 108(90Bas 2 every 4 Unknown e) hours as mcg/Act needed Clonazepam Active Tablets 0.5mg as needed Unknown Dispers Multivitamin Active Tablets once daily Unknown Fluticasone Active Suspension 50mcg/Act 1 squirt Unknown 0000 each nostril daily Immunizations CPT Code Status Date Vaccine Lot # [id number] Given Unknown Influenza Vaccine Vital Signs Date Vital Result Comment 07/27/2017 Respiratory Rate 16 /min Heart Rate 95 /min O2 % BldC Oximetry 98 % BP Systolic 90 mmHg BP Diastolic 60 mmHg 07/27/2017 Height 62 inches 5'2" Weight 153.00 lb Weight in kg's 69.401 Respiratory Rate 20 /min Heart Rate 96 /min O2 % BldC Oximetry 95 % BP Systolic 102 mmHg BP Diastolic 64 mmHg Asthma Control Test 17 BMI (Body Mass Index) 28.0 kg/m2 07/04/2017 Height 62 inches 5'2" Weight 155.00 lb Weight in kg's 70.308 Respiratory Rate 22 /min Heart Rate 101 /min O2 % BldC Oximetry 96 % BP Systolic 115 mmHg BP Diastolic 74 mmHg BMI (Body Mass Index) 28.3 kg/m2 Results Test Date Test Result H/L Range Note CBC Auto Diff 07/04/2017 White Blood Count 8.9 10^3/uL 3.5-10.8 Red Blood Count 4.70 10^6/uL 4.0-5.4 Hemoglobin 13.6 g/dL 12.0-16.0 Hematocrit 41 % 35-47 Mean Corpuscular Volume 86 fL 80-97 Mean Corpuscular Hemoglobin 29 pg 27-31 Mean Corpuscular HGB Conc 34 g/dL 31-36 Red Cell Distribution Width 14 % 10.5-15 Platelet Count 225 10^3/uL 150-450 Mean Platelet Volume 8 um3 7.4-10.4 Abs Neutrophils 7.7 10^3/uL 1.5-7.7 Abs Lymphocytes 0.7 10^3/uL Low 1.0-4.8 Abs Monocytes 0.4 10^3/uL 0-0.8 Abs Eosinophils 0 10^3/uL 0-0.6 Abs Basophils 0 10^3/uL 0-0.2 Abs Nucleated RBC 0 10^3/uL Granulocyte % 86.3 % High 38-83 Lymphocyte % 8.1 % Low 25-47 Monocyte % 4.9 % 0-7 Eosinophil % 0.2 % 0-6 Basophil % 0.5 % 0-2 Nucleated Red Blood Cells % 0 Laboratory test finding 07/04/2017 Alpha 1 Antitrypsin A1a 125 mg/dL 100 - 190 1 Alternaria tenuis IgE Allergen <0.35 kU/L 2 Aspergillus Fumigatus IgE <0.35 kU/L 3 Silver Birch IgE <0.35 kU/L 4 Will Maple IgE <0.35 kU/L 5 Cat Epithelium Allergen IgE <0.35 kU/L 6 Cladosporium herbarum IgE <0.35 kU/L 7 Cocklebur Allergen IgE <0.35 kU/L 8 Dermatophagoides farinae IgE <0.35 kU/L 9 Dermatophagoides pteronyssinus <0.35 kU/L 10 Dog Dander Allergen IgE <0.35 kU/L 11 Helminthosporium halodes IgE <0.35 kU/L 12 Cline's Quarter Allergen IgE <0.35 kU/L 13 Gross Elder Allergen IgE <0.35 kU/L 14 [place] Allergen IgE <0.35 kU/L 15 Orchard Grass Allergen IgE <0.35 kU/L 16 Rough Pigweed Allergen IgE <0.35 kU/L 17 Common Ragweed (Short) Allerge <0.35 kU/L 18 Saqib Grass Allergen IgE <0.35 kU/L 19 White Ab Allergen IgE <0.35 kU/L 20 Immunoglobulin E (Ige) 70.4 kU/L <=214 21 Alpha 1 Antitrypsin Phenotypin 07/04/2017 A1a Phenotype M bands 22 Alpha 1 Antitrypsin A1a 97 mg/dL 100 - 190 23 1 Test Performed by: [facility] [place] [address] [place] [address] 2 Class 0 (Negative <0.35) Test Performed by: [facility] [address] [place] [address] 3 Class 0 (Negative <0.35) Test Performed by: [facility] [employer] [address] [place] [address] [place] [address] 4 Class 0 (Negative <0.35) Test Performed by: [facility] [address] [place] [address] 5 Class 0 (Negative <0.35) Test Performed by: [facility] [address] [place] [address] 6 Class 0 (Negative <0.35) Test Performed by: [facility] [address] [place] [address] 7 Class 0 (Negative <0.35) Test Performed by: [facility] [place] [address] 8 Class 0 (Negative <0.35) Test Performed by: [facility] [employer] [place] [address] 9 Class 0 (Negative <0.35) Test Performed by: [facility] [place] [address] 10 Class 0 (Negative <0.35) Test Performed by: [facility] [place] [address] 11 Class 0 (Negative <0.35) Test Performed by: [facility] [place] [address] 12 Class 0 (Negative <0.35) Test Performed by: [facility] [place] [address] 13 Class 0 (Negative <0.35) Test Performed by: [facility] [place] [address] 14 Class 0 (Negative <0.35) Test Performed by: [place] [address] 15 Class 0 (Negative <0.35) Test Performed by: [place] [address] 16 Class 0 (Negative <0.35) Test Performed by: [place] [address] 17 Class 0 (Negative <0.35) Test Performed by: [place] [address] 18 Class 0 (Negative <0.35) Test Performed by: [place] [address] 19 Class 0 (Negative <0.35) Test Performed by: [place] [address] 20 Class 0 (Negative <0.35) Test Performed by: [place] [address] 21 Test Performed by: [place] [address] 22 A single M isoform is detected. In the context of a low nbabr-7-tuqdoesnifj concentration, it is not possible to distinguish between an MM or MNull phenotype. Reviewed by: Usha Zabala, Ph.D. 07/10/2017 3:51 PM 23 Test Performed by: [address] [address] Procedures Date CPT Code Description Status 07/27/2017 67687 Pre PFT Completed 07/04/2017 58074 Pulmonary Function Test Completed Encounters Type Date Location Provider CPT E/M Dx Office Visit 07/27/2017 2:00p NEHAL [place] 05327 R05 J30.9 Office Visit 07/04/2017 9:40a Lucero Santana M.D. 64755 L20.9 R05 J30.9 Plan of Care Future Appointment(s):08/10/2017 2:40 pm - NEHAL [place] at [id number]/2017 - Ayalajuni White, FOREPART LASTER-CR05 [id number] Allergic rhinitis, unspecifiedNew Medication:Prednisone 5 mgFollow up:2 weeks with pre PFTRecommendations:Continue all medications as prescribed.Refrain from wearing perfumes/scented colognes while visitingour office. Duoneb now Prednisone 60 mg now Start the predisone tomorrow Continue the Symbicort2 puffs twice a day Continue the fluticasone nasal spray 2 sprays daily Continue the Ventolin 2 puffs every 4 hours as needed for cough, shortness of breath, chest tightness or wheezingMonitor Albuterol use. If using more than 2x/week, please call the office as your asthma medications may need to beadjusted.
--- OUTSIDE RECORDS SUMMARY | 2017-08-25 11:08 | XMS REPORT ---
:1960 External Reference #:[id number] Author Organization [facility] Address [address] [place] [address] Phone [phone] Care Team Providers Name Role Phone Ashlyn Cunningham MD Care Team Information Licensing Manager Unavailable Ashlyn Cunningham MD Primary Care Physician Unavailable Payers Type Date Identification Numbers Payment Provider Subscriber Commercial Effective: Policy Number: Aet[employer]-[facility] Dorene [place] 2016 [id number] Group Number: [id number] [id number] Group Name: [employer] KARYNA [place] [address] PayID: [id number] Problems Date Description Provider Status Onset: 07/04/2017 [...] With Spouse Lives With Cats Home Environment [place] Heat Home Environment Unfinished Basement Home Environment [...] in the home Home Environment 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 Home Environment Uses a dehumidifier Home Environment Pillows contain feathers Home Environment Pillows are not encased in an allergy proof case Home Environment Mattress is over 10 years old Home Environment Mattress is not encased in an allergy proof case Home Environment House hae a house built in 1971 with city water, coal stove, baseboard electric Have cottage on [facility] built [place] [facility] will bad well, new propane forced hot air & heat pumps & recent construction/remodeling Smoke-Free Work is smoke-free Smoke-Free Home is smoke-free Pets 2 cats Pets 2 dogs 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494 Respiratory Rate 18 /min Heart Rate 88 /min O2 % BldC Oximetry 97 % BP Systolic 119 mmHg BP Diastolic 75 mmHg Asthma Control Test 20 BMI (Body Mass Index) 27.6 kg/m2 07/27/2017 Respiratory Rate 16 /min Heart Rate [...] 3 Silver Birch IgE <0.35 kU/L 4 Ida Maple IgE <0.35 kU/L 5 Cat Epithelium Allergen IgE <0.35 kU/L 6 Cladosporium herbarum IgE <0.35 kU/L 7 Cocklebur Allergen IgE <0.35 kU/L 8 Dermatophagoides farinae IgE <0.35 kU/L 9 Dermatophagoides pteronyssinus <0.35 kU/L 10 Dog Dander Allergen IgE <0.35 kU/L 11 Helminthosporium halodes IgE <0.35 kU/L 12 Cline's Quarter Allergen IgE <0.35 kU/L 13 Gross Elder Allergen IgE <0.35 kU/L 14 [place] Allergen IgE <0.35 kU/L 15 Orchard Grass [...] - 190 23 1 Test Performed by: [facility] [address] [place] [address] 2 Class 0 (Negative <0.35) Test Performed by: [facility] [place] [address] 3 Class 0 (Negative <0.35) Test Performed by: [facility] [place] [address] 4 Class 0 (Negative <0.35) Test Performed by: [facility] [employer] [email or web address] [address] 5 Class 0 (Negative <0.35) Test Performed by: [facility] [place] [place] [address] 6 Class 0 (Negative <0.35) Test Performed by: [facility] [email or web address] [address] [place] [address] 7 Class 0 (Negative <0.35) Test Performed by: [facility] [address] [place] [address] 8 Class 0 (Negative <0.35) Test Performed by: [facility] [address] 9 Class 0 (Negative <0.35) Test Performed by: [facility] [address] [place] [address] 10 Class 0 (Negative <0.35) Test Performed by: [facility] [place] [address] 11 Class 0 (Negative <0.35) Test Performed by: [facility] [place] [address] 12 Class 0 (Negative <0.35) Test Performed by: [place] [address] 13 Class 0 (Negative <0.35) Test Performed by: [place] [address] 14 Class 0 (Negative <0.35) Test Performed by: [place] [address] 15 Class 0 (Negative <0.35) Test Performed by: [place] [address] 16 Class 0 (Negative <0.35) Test Performed by: [place] [address] 17 Class 0 (Negative <0.35) Test Performed by: [place] [address] 18 Class 0 (Negative <0.35) Test Performed by: [place] [address] 19 Class 0 (Negative <0.35) Test Performed by: [place] [address] 20 Class 0 (Negative <0.35) Test Performed by: [place] [address] 21 Test Performed by: [place] [address] 22 A single M isoform is detected. In the context of a low vxqtd-5-fpfoiebxgxl concentration, it is not possible to distinguish between an MM or MNull phenotype. Reviewed by: Usha Zabala, Ph.D. 07/10/2017 3:51 PM 23 Test Performed by: [address] [address] Procedures Date CPT Code Description Status 08/10/2017 93402 Pre PFT Completed 07/27/2017 71425 Ippb Completed 07/27/2017 76551 Pre PFT Completed 07/04/2017 43400 Pulmonary Function Test Completed Encounters Type Date Location Provider CPT E/M Dx Office Visit 08/10/2017 2:40p [place] NEHAL Clinton 82018 R05 J30.9 L20.9 Office Visit 07/27/2017 2:00p [place] NEHAL Clinton 70491 R05 J30.9 Office Visit 07/04/2017 9:40a [place] Julieth Santana M.D. 03618 L20.9 R05 J30.9 Plan of Care Future Appointment(s):09/21/2017 11:00 am - NEHAL [place] at [id number] - VICTOR HUGO [place]05 XaldeY15.9 Allergic rhinitis, aeszcpfsveiF05.9 Atopic dermatitis, unspecifiedFollow up:dr. chi in 6 weeksRecommendations:Continue all medications as prescribed.Refrain from wearing perfumes/scented colognes while visitingour office. Continue the Prednisone until finished Continue the Symbicort 2 puffs twice a day Continue the fluticasone nasal spray 2 sprays daily Continue the Ventolin 2 puffs every 4 hours as needed for cough, shortness of breath, chest tightness or wheezingMonitor Albuterol use. If using more than 2x/week, please call the office as your asthma medications may need to be adjusted.
[2017-08-25 11:47] LABS: ABS Basophils 0 10^3/ul (0-0.2); ABS Eosinophils 0.1 10^3/ul (0-0.6); ABS Lymphocytes 0.7 10^3/ul (1.0-4.8); ABS Monocytes 0.4 10^3/ul (0-0.8); ABS Neutrophils 4.2 10^3/ul (1.5-7.7); ABS Nucleated RBC 0 10^3/ul; Eosinophil % 2.5 % (0-6); Hematocrit 41 % (35-47); Hemoglobin 13.4 g/dl (12.0-16.0); Lymphocyte % 12.5 % (25-47); Mean Corpuscular HGB Conc 33 g/dl (31-36); Mean Corpuscular Hemoglobin 29 pg (27-31); Mean Corpuscular Volume 87 fL (80-97); Mean Platelet Volume 7.8 um3 (7.4-10.4); Nucleated Red Blood Cells % 0.1; Platelet Count 165 10^3/ul (150-450); Red Blood Count 4.65 10^6/ul (4.0-5.4); Red Cell Distribution Width 14 % (10.5-15); White Blood Count 5.5 10^3/ul (3.5-10.8)
--- NOTE | 2017-08-25 12:16 | RAD ---
INDICATION: Chest pain. COMPARISON: Comparison is made with a prior chest x-ray study from July 04, 2017. TECHNIQUE: Dual-energy PA and lateral views of the chest were obtained. FINDINGS: The heart is within normal limits in size. Mediastinal and hilar contours appear within normal limits. The lungs are underinflated. There are linear infiltrates at both lung bases. No pleural effusion is seen. IMPRESSION: BIBASILAR LINEAR INFILTRATES MOST CONSISTENT WITH ATELECTASIS LESS LIKELY PNEUMONIA.
[2017-08-25] MEDS ORDERED: Ketorolac INJ* 30 MG/ML 1 ML VIAL IV ONE (12:22)
[2017-08-25 12:27] LABS: EGFR Non-African American 79.4 (>60)
[2017-08-25 16:06] VITALS: BP 128/80
--- NOTE | 2017-08-25 17:19 | ED ---
Vipin Mejia Elizabeth, scribed for Mayito Iglesias MD on 08/25/17 at 1131 . HPI Chest Pain - HPI Summary HPI Summary: This patient is a 57 year old F presenting to [facility] with a chief complaint of sharp pain in her right rib cage and sternum since 3 days ago. The patient rates the pain 8/10 in severity. Symptoms aggravated by movement and deep breaths. Symptoms alleviated by ASA. Patient reports cough. Patient denies shortness of breath or nausea. Patient notes that she went kayaking 4 days ago prior to the onset of the pain. - History of Current Complaint Chief Complaint: EDChestWallPain Time Seen by Provider: 08/25/17 11:17 Hx Obtained From: Patient Hx Last Menstrual Period: post Onset/Duration: Started Days Ago - began 3 days ago, Still Present Timing: Constant Current Severity: Moderate Pain Intensity: 8 Pain Scale Used: 0-10 Numeric Chest Pain Location: Mid Sternal, Right Anterior Character: Sharp/Stabbing Aggravating Factor(s): Movement, Deep Breaths Associated Signs and Symptoms: Positive: Cough. Negative: Shortness of Breath, Nausea - Allergy/Home Medications Allergies/Adverse Reactions: Allergies Allergy/AdvReac Type Severity Reaction Status Date / Time No Known Allergies Allergy Verified 08/25/17 10:54 Home Medications: Home Medications Albuterol HFA INHALER* [Ventolin HFA Inhaler*] 1 - 2 puff INH Q4H PRN 08/25/17 [ History Confirmed 08/25/17] Biotin 300 mcg PO DAILY 08/25/17 [History Confirmed 08/25/17] Budesonide/Formote 160/4.5(NF) [Symbicort 160/4.5 (NF)] 1 puff INH BID 08/25/17 [History Confirmed 08/25/17] Cetirizine* [ZyrTEC 10 MG TAB*] 10 mg PO DAILY 08/25/17 [History Confirmed 08/25] Fluticasone NASAL SPRAY 50MCG* [Flonase NASAL SPRAY 50MCG*] 2 spray BOTH NARES QPM 08/25/17 [History Confirmed 08/25/17] Melatonin (NF) [Meladox] 3 mg PO BEDTIME 08/25/17 [History Confirmed 08/25/17] PMH/Surg Hx/FS Hx/Imm Hx Endocrine/Hematology History: Denies: Hx Diabetes, Hx Thyroid Disease Cardiovascular History: Denies: Hx Congestive Heart Failure, Hx Hypertension, Hx Pacemaker/ICD, Other Cardiovascular Problems/Disorders Respiratory History: Reports: Hx Asthma - ruling this out Denies: Hx Chronic Obstructive Pulmonary Disease (COPD), Other Respiratory Problems/Disorders GI History: Denies: Hx Ulcer History: Reports: Other Problems/Disorders - born with 1 kidney Musculoskeletal History: Denies: Hx Osteoporosis Psychiatric History: Reports: Hx Anxiety, Hx Attention Deficit Hyperactivity Disorder, Hx Depression - Cancer History Hx Chemotherapy: No Hx Radiation Therapy: No - Surgical History Surgery Procedure, Year, and Place: , GALL BLADDER REMOVED, HERNIA REPAIR Infectious Disease History: No Infectious Disease History: Reports: Hx Shingles - AT AGE 1 OR 2 Denies: Hx Hepatitis, Hx Human Immunodeficiency Virus (HIV), Traveled Outside the [place] in Last 30 Days - Family History Known Family History: Positive: Hypertension, Renal Disease - Social History Alcohol Use: Weekly Hx Substance Use: No Substance Use Type: Reports: None Hx Tobacco Use: No Smoking Status (MU): Never Smoked Tobacco Review of Systems Negative: Epistaxis Positive: Chest Pain Positive: Cough. Negative: Shortness Of Breath Negative: Nausea All Other Systems Reviewed And Are Negative: Yes Physical Exam - Summary Physical Exam Summary: Appearance: The patient is well-nourished in no acute distress and in no acute pain. Skin: The skin is warm and dry and skin color reflects adequate perfusion. HEENT: The head is normocephalic and atraumatic. The pupils are equal and reactive. The conjunctivae are clear and without drainage. Nares are patent and without drainage. Mouth reveals moist mucous membranes and the throat is without erythema and exudate. The external ears are intact. The ear canals are patent and without drainage. The tympanic membranes are intact. Neck: the neck is supple with full range of motion and non-tender. There are no carotid bruits. There is no neck vein distension. Respiratory: Chest is non-tender. Lungs are clear to auscultation and breath sounds are symmetrical and equal. Cardiovascular: Heart is regular rate and rhythm. There is no murmur or rub auscultated. There is no peripheral edema and pulses are symmetrical and equal. Mildly tender to anterior right chest wall. Abdomen: The abdomen is soft and non-tender. There are normal bowel sounds heard in all four quadrants and there is no organomegaly palpated. Musculoskeletal: There is no back tenderness noted. Extremities are non-tender with full range of motion. There is good capillary refill. There is no peripheral edema or calf tenderness elicited. Mildly tender to anterior right chest wall. Neurological: Patient is alert and oriented to person, place and time. The patient has symmetrical motor strength in all four extremities. Cranial nerves are grossly intact. Deep tendon reflexes are symmetrical and equal in all four extremities. Psychiatric: The patient has an appropriate affect and does not exhibit any anxiety or depression. Triage Information Reviewed: Yes Vital Signs On Initial Exam: Initial Vitals Temp Pulse Resp BP Pulse Ox 98.5 F 71 18 99/77 98 08/25/17 10:50 08/25/17 10:50 08/25/17 10:50 08/25/17 10:50 08/25/17 10:50 Vital Signs Reviewed: Yes Diagnostics - Vital Signs Vital Signs Temp Pulse Resp BP Pulse Ox 08/25/17 10:50 98.5 F 71 18 99/77 98 - Laboratory Lab Results: Lab Results 08/25/17 08/25/17 08/25/17 Range/Units 11:36 11:36 11:36 WBC 5.5 (3.5-10.8) 10^3/ul RBC 4.65 (4.0-5.4) 10^6/ul Hgb 13.4 (12.0-16.0) g/dl Hct 41 (35-47) % MCV 87 (80-97) fL MCH 29 (27-31) pg MCHC 33 (31-36) g/dl RDW 14 (10.5-15) % Plt Count 165 (150-450) 10^3/ul MPV 7.8 (7.4-10.4) um3 Neut % (Auto) 77.2 (38-83) % Lymph % (Auto) 12.5 L (25-47) % Atkinson % (Auto) 7.1 H (0-7) % Eos % (Auto) 2.5 (0-6) % Baso % (Auto) 0.7 (0-2) % Absolute Neuts (auto) 4.2 (1.5-7.7) 10^3/ul Absolute Lymphs (auto) 0.7 L (1.0-4.8) 10^3/ul Absolute Monos (auto) 0.4 (0-0.8) 10^3/ul Absolute Eos (auto) 0.1 (0-0.6) 10^3/ul Absolute Basos (auto) 0 (0-0.2) 10^3/ul Absolute Nucleated RBC 0 10^3/ul Nucleated RBC % 0.1 D-Dimer, Quantitative (Less Than 230) ng/mL Sodium 139 (139-145) mmol/L Potassium 4.3 (3.5-5.0) mmol/L Chloride 107 (101-111) mmol/L Carbon Dioxide 26 (22-32) mmol/L Anion Gap 6 (2-11) mmol/L BUN 15 (6-24) mg/dL Creatinine 0.75 (0.51-0.95) mg/dL Est GFR ( Amer) 102.1 (>60) Est GFR (Non-Af Amer) 79.4 (>60) BUN/Creatinine Ratio 20.0 (8-20) Glucose 96 (70-100) mg/dL Lactic Acid 0.7 (0.5-2.0) mmol/L Calcium 8.8 (8.6-10.3) mg/dL Total Bilirubin 0.50 (0.2-1.0) mg/dL AST 17 (13-39) U/L ALT 14 (7-52) U/L Alkaline Phosphatase 73 (34-104) U/L Troponin I 0.00 (<0.04) ng/mL Total Protein 6.2 L (6.4-8.9) g/dL Albumin 3.8 (3.2-5.2) g/dL Globulin 2.4 (2-4) g/dL Albumin/Globulin Ratio 1.6 (1-3) 08/25/17 08/25/17 Range/Units 11:36 14:30 WBC (3.5-10.8) 10^3/ul RBC (4.0-5.4) 10^6/ul Hgb (12.0-16.0) g/dl Hct (35-47) % MCV (80-97) fL MCH (27-31) pg MCHC (31-36) g/dl RDW (10.5-15) % Plt Count (150-450) 10^3/ul MPV (7.4-10.4) um3 Neut % (Auto) (38-83) % Lymph % (Auto) (25-47) % Atkinson % (Auto) (0-7) % Eos % (Auto) (0-6) % Baso % (Auto) (0-2) % Absolute Neuts (auto) (1.5-7.7) 10^3/ul Absolute Lymphs (auto) (1.0-4.8) 10^3/ul Absolute Monos (auto) (0-0.8) 10^3/ul Absolute Eos (auto) (0-0.6) 10^3/ul Absolute Basos (auto) (0-0.2) 10^3/ul Absolute Nucleated RBC 10^3/ul Nucleated RBC % D-Dimer, Quantitative < 200 (Less Than 230) ng/mL Sodium (139-145) mmol/L Potassium (3.5-5.0) mmol/L Chloride (101-111) mmol/L Carbon Dioxide (22-32) mmol/L Anion Gap (2-11) mmol/L BUN (6-24) mg/dL Creatinine (0.51-0.95) mg/dL Est GFR ( Amer) (>60) Est GFR (Non-Af Amer) (>60) BUN/Creatinine Ratio (8-20) Glucose (70-100) mg/dL Lactic Acid (0.5-2.0) mmol/L Calcium (8.6-10.3) mg/dL Total Bilirubin (0.2-1.0) mg/dL AST (13-39) U/L ALT (7-52) U/L Alkaline Phosphatase (34-104) U/L Troponin I 0.00 (<0.04) ng/mL Total Protein (6.4-8.9) g/dL Albumin (3.2-5.2) g/dL Globulin (2-4) g/dL Albumin/Globulin Ratio (1-3) Result Diagrams: 08/25/17 11:36 08/25/17 11:36 Lab Statement: Any lab studies that have been ordered have been reviewed, and results considered in the medical decision making process. - Radiology Chest PA & Lat 2 VWS Xray Interpretation: Positive (See Comments) - Patient Name: BEMENT, GABRIELLA Medical Record#: [id number] Ordering Physician: Mayito Iglesias MD Acct.#: [id number] : 1960 Age: 57 Sex: F Location: EMERGENCY DEPARTMENT Exam Date: 08/25/171126 ADM Status: REG ER Order Information: CHEST PA & LAT 2 VWS Accession Number: [id number] CPT: 88125 INDICATION: Chest pain. COMPARISON: Comparison is made with a prior chest x-ray study from July 04, 2017. TECHNIQUE: Dual- energy PA and lateral views of the chest were obtained. FINDINGS: The heart is within normal limits in size. Mediastinal and hilar contours appear within normal limits. The lungs are underinflated. There are linear infiltrates at both lung bases. No pleural effusion is seen. IMPRESSION: BIBASILAR LINEAR INFILTRATES MOST CONSISTENT WITH ATELECTASIS LESS LIKELY PNEUMONIA. <Electronically signed by Benito Mcgowan MD in OV> 08/25/17 1213 Dictated By: Benito Mcgowan MD Dictated Date/Time: 08/25/17 1213 Transcribed Date/Time: 08/25/17 1209 Copy to: CC:Ashlyn Cunningham MD; Mayito Iglesias MD Imaging - [facility] - [facility] [address] [place] [address] ph [phone] ph ([phone]) ph ([phone]) 1 of 1 Radiology Interpretation Completed By: Radiologist - IMPRESSION: BIBASILAR LINEAR INFILTRATES MOST CONSISTENT WITH ATELECTASIS LESS LIKELY PNEUMONIA. Dr. Iglesias has reviewed this report. - EKG 11:27 Cardiac Rate: NL - at 65 BPM EKG Rhythm: Sinus Rhythm EKG Interpretation: NSR at 65 bpm Chest Pain Course/Dx - Course Course Of Treatment: Ms. Stephenson presented with what sounded like a musculoskeletal right-sided chest pain for a couple days. She had been out on the [place] padd[place] for the first time this year a day before it started. Her W/ U was conservative and negative and I recomended close F/U if not improving quickly. - Diagnoses Provider Diagnoses: Chest pain Discharge - Sign-Out/Discharge Documenting (check all that apply): Discharge/Admit/Transfer - Discharge Plan Condition: Stable Disposition: HOME Patient Education Materials: Chest Pain (ED) Referrals: Ashlyn Cunningham MD [Primary Care Provider] - 2 Days Additional Instructions: Follow up with primary care physician in 2-3 days. Return to the emergency department with any new or worsening symptoms. - Billing Disposition and Condition Condition: STABLE Disposition: HOME The documentation as recorded by the Vipin whitt Elizabeth accurately reflects the service I personally performed and the decisions made by me, Mayito Iglesias MD.
== END 2017-08-25 16:05 | disposition home or self-care (01) ==
LOC: ED 10:47
DX: R07.9 Chest pain, unspecified (principal); F90.9 Attention-deficit hyperactivity disorder, unspecified type
CPT/HCPCS: 36415; 71046; 80053; 83605; 84484; 85025; 85379; 93005; 96374; 99282; J1885

== ENCOUNTER 2018-07-10 14:49 | Emergency (ER) | payer OTHER ==
--- OUTSIDE RECORDS SUMMARY | 2018-07-10 15:33 | XMS REPORT | Continuity of Care Document ---
:1960 External Reference #:[id number] Author Name NEHAL Clinton Address [address] [place] [address] Care Team Providers Name Role Phone Ashlyn Cunningham MD Care Team Information Mica Patcher Unavailable Ashlyn Cunningham MD Primary Care Physician Unavailable Payers Date Identification Numbers Payment Provider Subscriber Effective: 2016 Policy Number: [id number] [facility] [place], [facility] Dorene Stephenson Group Number: [id number] [address] Group Name: [place] [address] PayID: [id number] Advance Directives Description No Information Available Problems Date Description Provider Status Onset: 07/04/2017 Allergic rhinitis Julieth Santana M.D. Active Onset: 07/04/2017 Cough Julieth Santana M.D. Active Onset: 07/04/2017 Atopic dermatitis Julieth Santana M.D. 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 Home Environment Uses a dehumidifier Home Environment Pillows contain feathers Home Environment Pillows are not encased in an allergy proof case Home Environment Mattress is over 10 years old Home Environment Mattress is not encased in an allergy proof case Home Environment House hae a house built in 1971 with city water, coal stove, baseboard electric Have cottage on [address] [place] [address] will bad well, new propane forced hot air & heat pumps & recent construction/remodel ing Smoke-Free Work is smoke-free Smoke-Free Home is smoke-free Pets 2 cats Pets 2 dogs Pets Animals sleep in bedroom 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 hours as needed for cough, shortness of breath and wheezing Omeprazole 09/[address] 20mg 90cap once daily R05 s NEHAL White Zyrtec Allergy 07/04 Active Tablets 10mg 180ta 2 times bs daily NEHAL White Fluoxetine HCL Active Capsules 20mg three tabs Unknown (PMDD) /0000 once daily Melatonin Active Tablets 1mg as needed Unknown /0000 Methylphenidate Active Tablets ER 54mg once daily Unknown HCL ER /0000 24HR Ventolin HFA Active Aerosol 108(90Bas 18gm 2 every 4 Ayala /0000 e) hours as Uldrich, mcg/Act needed [employer] SCI[employer] TE[employer]ER-C Multivitamin Active Tablets once daily Unknown Adults /0000 Fluticasone Active Suspension 50mcg/Act 48gm 2 squirt Ayala Propionate /0000 each real Whiteil V[employer] SCIENCE TE[employer]ER-C daily in the am and the pm Aleve Active Capsules 220mg Unknown /0000 Lorazepam 00 Active Tablets 1mg Unknown /0000 Mucinex DM Active Tablets ER 60-1200mg 1 tab every Unknown Maximum Strength /0000 12HR 12 hours Immunizations CPT Code Status Date Vaccine Lot # 39682 Given Unknown Pneumococcal Vaccine 40561 Given Unknown Influenza Vaccine 11676 Given Unknown Influenza Vaccine 00905 Given Unknown Influenza Vaccine Vital Signs Date Vital Result Comment 07/08/2018 2:31pm Height 62 inches 5'2" Weight 162.00 lb Weight 73.483 kg Respiratory Rate 20 /min Heart Rate 103 /min Body Temperature 98.7 F O2 % BldC Oximetry 95 % BP Systolic 103 mmHg BP Diastolic 68 mmHg Asthma Control Test 16 Fractional Exhaled Nitric Oxide 7 BMI (Body Mass Index) 29.6 kg/m2 06/24/2018 2:37pm Height 62 inches 5'2" Weight 165.00 lb Weight 74.844 kg Respiratory Rate 20 /min Heart Rate 83 /min Body Temperature 98.9 F O2 % BldC Oximetry 97 % BP Systolic 105 mmHg BP Diastolic 64 mmHg Asthma Control Test 18 Fractional Exhaled Nitric Oxide 7 BMI (Body Mass Index) 30.2 kg/m2 12/07/2017 3:08pm Height 62 inches 5'2" Weight 153.00 lb Weight 69.401 kg Respiratory Rate 18 /min Heart Rate 95 /min O2 % BldC Oximetry 97 % BP Systolic 131 mmHg BP Diastolic 93 mmHg Asthma Control Test 22 BMI (Body Mass Index) 28.0 kg/m2 11/22/2017 10:17am Height 62 inches 5'2" Weight 151.00 lb Weight 68.494 kg Respiratory Rate 20 /min Heart Rate 72 /min O2 % BldC Oximetry 98 % BP Systolic 113 mmHg BP Diastolic 69 mmHg Asthma Control Test 23 BMI (Body Mass Index) 27.6 kg/m2 10/26/2017 9:38am Height 62 inches 5'2" Weight 152.00 lb Weight 68.947 kg Respiratory Rate 20 /min Heart Rate 77 /min O2 % BldC Oximetry 95 % BP Systolic 132 mmHg BP Diastolic 86 mmHg Asthma Control Test 21 BMI (Body Mass Index) 27.8 kg/m2 10/19/2017 1:49pm Height 62 inches 5'2" Weight 151.00 lb Weight 68.494 kg Respiratory Rate 20 /min Heart Rate 102 /min O2 % BldC Oximetry 99 % BP Systolic 111 mmHg BP Diastolic 59 mmHg Asthma Control Test 19 BMI (Body Mass Index) 27.6 kg/m2 10/05/2017 1:54pm Height 62 inches 5'2" Weight 151.00 lb Weight 68.494 kg Respiratory Rate 16 /min Heart Rate 81 /min O2 % BldC Oximetry 98 % BP Systolic 103 mmHg BP Diastolic 63 mmHg Asthma Control Test 21 BMI (Body Mass Index) 27.6 kg/m2 09/21/2017 11:02am Height 62 inches 5'2" Weight 148.00 lb Weight 67.133 kg Respiratory Rate 22 /min Heart Rate 94 /min O2 % BldC Oximetry 98 % BP Systolic 103 mmHg BP Diastolic 68 mmHg Asthma Control Test 21 BMI (Body Mass Index) 27.1 kg/m2 08/10/2017 2:44pm Height 62 inches 5'2" Weight 151.00 lb Weight 68.494 kg Respiratory Rate 18 /min Heart Rate 88 /min O2 % BldC Oximetry 97 % BP Systolic 119 mmHg BP Diastolic 75 mmHg Asthma Control Test 20 BMI (Body Mass Index) 27.6 kg/m2 07/27/2017 4:55pm Respiratory Rate 16 /min Heart Rate 95 /min O2 % BldC Oximetry 98 % BP Systolic 90 mmHg BP Diastolic 60 mmHg 07/27/2017 2:02pm Height 62 inches 5'2" Weight 153.00 lb Weight 69.401 kg Respiratory Rate 20 /min Heart Rate 96 /min O2 % BldC Oximetry 95 % BP Systolic 102 mmHg BP Diastolic 64 mmHg Asthma Control Test 17 BMI (Body Mass Index) 28.0 kg/m2 07/04/2017 10:03am Height 62 inches 5'2" Weight 155.00 lb Weight 70.308 kg Respiratory Rate 22 /min Heart Rate 101 /min O2 % BldC Oximetry 96 % BP Systolic 115 mmHg BP Diastolic 74 mmHg BMI (Body Mass Index) 28.3 kg/m2 Results Test Date Facility Test Result H/L Range Note Laboratory test 12/07/2017 [facility] Rast Cow's <0.35 kU/L 1 finding [address] [facility] [place] [address] [phone] Rast Soybean <0.35 kU/L 2 R[facility] Walnuts <0.35 kU/L 3 [facility] Wheat <0.35 kU/L 4 [facility] Sesame 12/07/2017 [facility] Sesame Seed <0.35 kU/L 5 [facility] [place] [place] [address] [phone] Laboratory test 12/07/2017 [facility] Rast Egg White <0.35 kU/L [address] [place] [address] [phone] Rast [employer] Foods 12/07/2017 [facility] Rast Shrimp <0.35 kU/L 7 [place] [address] [phone] Rast Lobster <0.35 kU/L 8 R[facility] Crab <0.35 kU/L 9 [facility] Scallops <0.35 kU/L 10 [facility] Blue Mussel <0.35 kU/L 11 [facility] Oyster <0.35 kU/L 12 Rast Clam <0.35 kU/L 13 [facility] [employer] Fish 12/07/2017 [facility] Rast Codfish <0.35 kU/ L [address] [place] [address] [phone] Rast Mendota <0.35 kU/L 15 Rast TUNA <0.35 kU/L 16 Rast Squid Ige <0.35 kU/L 17 Laboratory test 07/04/2017 [facility] Alpha 1 125 mg/dL 100 - [address] Antitrypsin A1a 190 [place] [address] [phone] Alternaria tenuis IgE Allergen <0.35 kU/L 19 Aspergillus Fumigatus IgE <0.35 kU/L 20 Silver Birch IgE <0.35 kU/L 21 Mifflin Maple IgE <0.35 kU/L 22 Cat Epithelium Allergen IgE <0.35 kU/L 23 Cladosporium herbarum IgE <0.35 kU/L 24 Cocklebur Allergen IgE <0.35 kU/L 25 Dermatophagoides farinae IgE <0.35 kU/L 26 Dermatophagoides pteronyssinus <0.35 kU/L 27 Dog Dander Allergen IgE <0.35 kU/L 28 Helminthosporium halodes IgE <0.35 kU/L 29 Cline's Quarter Allergen IgE <0.35 kU/L 30 Gross Elder Allergen IgE <0.35 kU/L 31 [place] Allergen IgE <0.35 kU/L 32 Orchard Grass Allergen IgE <0.35 kU/L 33 Rough Pigweed Allergen IgE <0.35 kU/L 34 Common Ragweed (Short) Allerge <0.35 kU/L 35 Saqib Grass Allergen IgE <0.35 kU/L 36 White Ab Allergen IgE <0.35 kU/L 37 Immunoglobulin E (Ige) 70.4 kU/L <=214 38 Alpha 1 Antitrypsin 07/04/2017 [facility] A1a Phenotype M bands [address] [place] [address] [phone] Alpha 1 Antitrypsin A1a 97 mg/dL Abnormal 100 - 190 40 CBC Auto Diff 07/04/2017 [facility] White Blood 8.9 10^3/uL N 3.5-10.[address] [place] [address] [phone] Red Blood Count 4.70 10^6/uL N 4.0-5.4 Hemoglobin 13.6 g/dL N 12.0-16.0 Hematocrit 41 % N 35-47 Mean Corpuscular Volume 86 fL N 80-97 Mean Corpuscular Hemoglobin 29 pg N 27-31 Mean Corpuscular HGB Conc 34 g/dL N 31-36 Red Cell Distribution Width 14 % N 10.5-15 Platelet Count 225 10^3/uL N 150-450 Mean Platelet Volume 8 um3 N 7.4-10.4 Abs Neutrophils 7.7 10^3/uL N 1.5-7.7 Abs Lymphocytes 0.7 10^3/uL Low 1.0-4.8 Abs Monocytes 0.4 10^3/uL N 0-0.8 Abs Eosinophils 0 10^3/uL N 0-0.6 Abs Basophils 0 10^3/uL N 0-0.2 Abs Nucleated RBC 0 10^3/uL Granulocyte % 86.3 % High 38-83 Lymphocyte % 8.1 % Low 25-47 Monocyte % 4.9 % N 0-7 Eosinophil % 0.2 % N 0-6 Basophil % 0.5 % N 0-2 Nucleated Red Blood Cells % 0 1 Class 0 (Negative <0.35) Test Performed by: [place] [id number] 2 Class 0 (Negative <0.35) Test Performed by: [place] [id number] 3 Class 0 (Negative <0.35) Test Performed by: [place] [id number] 4 Class 0 (Negative <0.35) Test Performed by: [place] [id number] 5 Class 0 (Negative <0.35) Test Performed by: [place] [id number] 6 Class 0 (Negative <0.35) Test Performed by: [place] [address] 7 Class 0 (Negative <0.35) Test Performed by: [place] [address] 8 Class 0 (Negative <0.35) Test Performed by: [place] [address] 9 Class 0 (Negative <0.35) Test Performed by: [place] [address] 10 Class 0 (Negative <0.35) Test Performed by: [place] [address] 11 Class 0 (Negative <0.35) Test Performed by: [place] [address] 12 Class 0 (Negative <0.35) Test Performed by: [place] [address] 13 Class 0 (Negative <0.35) Test Performed by: [place] [address] 14 Class 0 (Negative <0.35) Test Performed by: [place] [address] 15 Class 0 (Negative <0.35) Test Performed by: [place] [address] 16 Class 0 (Negative <0.35) Test Performed by: [place] [address] 17 Class 0 (Negative <0.35) ADDITIONAL INFORMATION This test was developed using an analyte specific reagent. Its performance characteristics were determined by [facility] in a manner consistent with CLIA requirements. This test has not been cleared or approved by the U.S. Food and Drug Administration. Test Performed by: [place] [address] 18 Test Performed by: [address] [address] 19 Class 0 (Negative <0.35) Test Performed by: [address] [address] 20 Class 0 (Negative <0.35) Test Performed by: [place] [address] 21 Class 0 (Negative <0.35) Test Performed by: [place] [address] 22 Class 0 (Negative <0.35) Test Performed by: [place] [address] 23 Class 0 (Negative <0.35) Test Performed by: [place] [address] 24 Class 0 (Negative <0.35) Test Performed by: [place] [address] 25 Class 0 (Negative <0.35) Test Performed by: [place] [address] 26 Class 0 (Negative <0.35) Test Performed by: [place] [address] 27 Class 0 (Negative <0.35) Test Performed by: [place] [address] 28 Class 0 (Negative <0.35) Test Performed by: [place] [address] 29 Class 0 (Negative <0.35) Test Performed by: [place] [address] 30 Class 0 (Negative <0.35) Test Performed by: [place] [address] 31 Class 0 (Negative <0.35) Test Performed by: [place] [address] 32 Class 0 (Negative <0.35) Test Performed by: [place] [address] 33 Class 0 (Negative <0.35) Test Performed by: [place] [address] 34 Class 0 (Negative <0.35) Test Performed by: [place] [address] 35 Class 0 (Negative <0.35) Test Performed by: [address] [address] 36 Class 0 (Negative <0.35) Test Performed by: [address] [address] 37 Class 0 (Negative <0.35) Test Performed by: [address] [address] 38 Test Performed by: [address] [address] 39 A single M isoform is detected. In the context of a low sayot-1-fhnndpohxyd concentration, it is not possible to distinguish between an MM or MNull phenotype. Reviewed by: Usha Zabala, Ph.D. 07/10/2017 3:51 PM 40 Test Performed by: [address] [address] Procedures Date Code Description Status 06/24/2018 46263 Nitric Oxide Gas Determination Completed 12/07/2017 29229 Pre PFT Completed 12/07/2017 12044 Pre PFT Completed 11/22/2017 79855 Skin Test Scratch # Of Units ____ Completed 11/22/2017 30475 Skin Test Scratch # Of Units ____ Completed 10/26/2017 03631 Pre PFT Completed 10/19/2017 30532 Pre PFT Completed 10/19/2017 56384 Pre PFT Completed 10/05/2017 67771 Pre PFT Completed 09/21/2017 32526 Pre PFT Completed 08/10/2017 68408 Pre PFT Completed 07/27/2017 34605 Ippb Completed 07/27/2017 29856 Pre PFT Completed 07/04/2017 44422 Pulmonary Function Test Completed Encounters Type Date Location Provider Dx Diagnosis Office Visit 07/08/2018 Lucero White J30.9 Allergic rhinitis, 2:20p [employer] SCI[employer] unspecified J45.21 Mild intermittent asthma with (acute) exacerbation R05 Cough Office Visit 06/24/2018 2:40p Lucero White J30.9 Allergic rhinitis, [employer] SCI[employer]ER-C unspecified J30.1 Allergic rhinitis due to pollen J45.21 Mild intermittent asthma with (acute) exacerbation Office Visit 12/07/2017 3:00p Lucero White, J45.20 Mild intermittent [employer] SCIENCE TE[employer]ER-C asthma, uncomplicated J30.9 Allergic rhinitis, unspecified J30.1 Allergic rhinitis due to pollen R05 Cough L20.9 Atopic dermatitis, unspecified Office Visit 11/22/2017 10:20a Lucero White, J45.20 Mild intermittent [employer] SCIENCE TE[employer]ER-C asthma, uncomplicated J30.9 Allergic rhinitis, unspecified J30.1 Allergic rhinitis due to pollen Office Visit 10/26/2017 10:00a [place]-[facility] R05 Cough J45.21 Mild intermittent asthma with (acute) exacerbation J30.9 Allergic rhinitis, unspecified L20.9 Atopic dermatitis, unspecified Office Visit 10/19/2017 1:40p GURDEEP Painter-C R05 Cough J30.9 Allergic rhinitis, unspecified Office Visit 10/05/2017 2:00p [place] Krueger-[facility] R05 Cough J30.9 Allergic rhinitis, unspecified Office Visit 09/21/2017 11:00a [place] GURDEEP Clinton-C R05 Cough J30.9 Allergic rhinitis, unspecified L20.9 Atopic dermatitis, unspecified Office Visit 08/10/2017 2:40p [place] Krueger-C R05 Cough J30.9 Allergic rhinitis, unspecified L20.9 Atopic dermatitis, unspecified Office Visit 07/27/2017 2:00p [place] Krueger-C R05 Cough J30.9 Allergic rhinitis, unspecified Office Visit 07/04/2017 9:40a [place] Julieth Santana, L20.9 Atopic dermatitis, M.D. unspecified R05 Cough J30.9 Allergic rhinitis, unspecified Plan of Treatment Future Appointment(s):07/15/2018 3:40 pm - NEHAL Clinton at [id number] - GURDEEP Clinton-CJ30.9 Allergic rhinitis, [id number] Mild intermittent asthma with (acute) [id number] CoughNew Medication:Prednisone 5 mgXopenex HFA 45 mcg/ActFollow up:2 weeks with pre PFTRecommendations: Continue all medications as prescribed.Refrain from wearing perfumes/scented colognes while visitingour office. Prednisone 40 mg now Try the Xopenex inhaler 2 puffs every 4 hours for cough, which will not aggravate your anxiety Start the prednisone tomorrow Stop the Flovent and start the Symbicort 2 puffs twice a day Continue the Omeprazole to 40 mg Continue the fluticasone nasal spray 2 sprays daily Continue the Ventolin 2 puffs every 4 hours as needed for cough, shortness of breath, chest tightness or wheezing Monitor Albuterol use. If using more than 2x/week, please call the office as your asthma medications may need to be adjusted.
--- OUTSIDE RECORDS SUMMARY | 2018-07-10 15:33 | XMS REPORT | Continuity of Care Document ---
:1960 External Reference #:[id number] Author Name NEHAL Clinton Address [address] [place] [address] Care Team Providers Name Role Phone Ashlyn Cunningham MD Care Team Information Job Molder Unavailable Ashlyn Cunningham MD Primary Care Physician Unavailable Payers Date Identification Numbers Payment Provider Subscriber Effective: 2016 Policy Number: [id number] [facility] Dorene Stephenson Group Number: [id number] [address] Group Name: [place] [address] PayID: [id number] Advance Directives Description No Information Available Problems [...] With Spouse Lives With Cats Home Environment [place] Home Environment Unfinished Basement Home Environment [...] in the home Home Environment 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 Home Environment Uses a dehumidifier Home Environment Pillows contain feathers Home Environment Pillows are not encased in an allergy proof case Home Environment Mattress is over 10 years old Home Environment Mattress is not encased in an allergy proof case Home Environment House hae a house built in 1971 with city water, coal stove, baseboard electric Have cottage on [facility] [place] [address] will bad well, new propane forced hot air & heat pumps & recent construction/remodel ing Smoke-Free Work is smoke-free Smoke-Free Home is smoke-free Pets 2 cats Pets 2 dogs Pets Animals sleep in bedroom 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 Work Environment inside in [...] J30.9 /2018 s days,30 mg Uldrich, for ORTHO NURSE-C 3days,20mg for 3 days, 10 mg for 3days 5mg for2 days Xopenex HFA 07/08 Active Aerosol 45mcg/Act 15gm 2 puffs J30.9 inhalation Uldrich, every 6 ORTHO NURSE-C hours as needed or 15 minutes prior to exercise Flovent HFA 06/24 Active Aerosol 110mcg/Ac 36gm 2 puff J30.9 t inhalation Cindy, twice a day ORTHO NURSE-Srinivasa Aerochamber Plus 06/24 Active Misc 1unit use as J30.9 s directed NEHAL White Albuterol 10/30 Active Nebulizer (2.5mg/3M 75ml #1 via Replaced By [facility] L) 0.083% nebulizer Esther, every 4-6 M.D. [...] /0000 e) hours as Uldrich, mcg/Act needed ORTHO NURSE-C Multivitamin Active Tablets once daily Unknown Adults /0000 Fluticasone Active Suspension 50mcg/Act 48gm 2 squirt Ayala Propionate /0000 each real Whiteil ORTHO NURSE-C daily in the am and the pm Aleve Active Capsules 220mg Unknown /0000 Lorazepam 00 Active Tablets 1mg Unknown /0000 Mucinex DM Active Tablets ER 60-1200mg 1 tab every Unknown Maximum Strength /0000 12HR 12 hours Immunizations CPT Code Status Date Vaccine Lot # 04163 Given Unknown Pneumococcal Vaccine 72362 Given Unknown Influenza Vaccine 52440 Given Unknown Influenza Vaccine 76413 Given Unknown Influenza Vaccine Vital Signs Date [...] Result H/L Range Note Laboratory test 12/07/2017 [facility] Rast Cow's <0.35 kU/L [address] [facility] [place] [address] [phone] Rast Soybean <0.35 kU/L 2 Rast Walnuts <0.35 kU/L 3 Rast Wheat <0.35 kU/L 4 Rast Sesame 12/07/2017 [facility] Sesame Seed <0.35 kU/L [address] [facility] [place] [address] [phone] Laboratory test 12/07/2017 [facility] Rast Egg White <0.35 kU/L [address] [place] [address] [phone] Rast AAA Foods 12/07/2017 [facility] Rast Shrimp <0.35 kU/L 7 [place] [address] [phone] Rast Lobster <0.35 kU/L 8 Rast Crab <0.35 kU/L 9 Rast Scallops <0.35 kU/L 10 Rast Blue Mussel <0.35 kU/L 11 Rast Oyster <0.35 kU/L 12 Rast Clam <0.35 kU/L 13 Rast [employer] Fish 12/07/2017 [facility] Rast Codfish <0.35 kU/ L [address] [place] [address] [phone] Rast [place] <0.35 kU/L 15 Rast TUNA <0.35 kU/L 16 Rast Squid Ige <0.35 kU/L 17 Laboratory test 07/04/2017 [facility] Alpha 1 125 mg/dL 100 - [address] Antitrypsin A1a 190 [place] [address] [phone] Alternaria tenuis IgE Allergen <0.35 kU/L 19 Aspergillus Fumigatus IgE <0.35 kU/L 20 Silver Birch IgE <0.35 kU/L 21 [place] Maple IgE <0.35 kU/L 22 Cat Epithelium Allergen IgE <0.35 kU/L 23 Cladosporium herbarum IgE <0.35 kU/L 24 Cocklebur Allergen IgE <0.35 kU/L 25 Dermatophagoides farinae IgE <0.35 kU/L 26 Dermatophagoides pteronyssinus <0.35 kU/L 27 Dog Dander Allergen IgE <0.35 kU/L 28 Helminthosporium halodes IgE <0.35 kU/L 29 Cline's Quarter Allergen IgE <0.35 kU/L 30 Gross Elder Allergen IgE <0.35 kU/L 31 [place] Allergen IgE <0.35 kU/L 32 Orchard Grass Allergen IgE <0.35 kU/L 33 Rough Pigweed Allergen IgE <0.35 kU/L 34 Common Ragweed (Short) Allerge <0.35 kU/L 35 Saqib Grass Allergen IgE <0.35 kU/L 36 White Ab Allergen IgE <0.35 kU/L 37 Immunoglobulin E (Ige) 70.4 kU/L <=214 38 Alpha 1 Antitrypsin 07/04/2017 [facility] A1a Phenotype M bands [address] [place] [address] [phone] Alpha 1 Antitrypsin A1a 97 mg/dL Abnormal 100 - 190 40 CBC Auto Diff 07/04/2017 [facility] White Blood 8.9 10^3/uL N 3.5-10.[address] [place] [address] [phone] Red Blood Count 4.70 10^6/uL N 4.0-5.4 [...] Class 0 (Negative <0.35) Test Performed by: [place] [address] 2 Class 0 (Negative <0.35) Test Performed by: [place] [address] 3 Class 0 (Negative <0.35) Test Performed by: [place] [address] 4 Class 0 (Negative <0.35) Test Performed by: [place] [address] 5 Class 0 (Negative <0.35) Test Performed by: [place] [address] 6 Class 0 (Negative <0.35) Test Performed by: [place] [address] 7 Class 0 (Negative <0.35) Test Performed by: [place] [address] 8 Class 0 (Negative <0.35) Test Performed by: [place] [address] 9 Class 0 (Negative <0.35) Test Performed by: [place] [address] 10 Class 0 (Negative <0.35) Test Performed by: [place] [address] 11 Class 0 (Negative <0.35) Test Performed by: [place] [address] 12 Class 0 (Negative <0.35) Test Performed by: [place] [address] 13 Class 0 (Negative <0.35) Test Performed by: [place] [address] 14 Class 0 (Negative <0.35) Test Performed by: [place] [address] 15 Class 0 (Negative <0.35) Test Performed by: [place] [address] 16 Class 0 (Negative <0.35) Test Performed by: [place] [address] 17 Class 0 (Negative <0.35) ADDITIONAL INFORMATION This test was developed using an analyte specific reagent. Its performance characteristics were determined by [facility] in a manner consistent with CLIA requirements. This test has not been cleared or approved by the U.S. Food and Drug Administration. Test Performed by: [place] [address] 18 Test Performed by: [address] [address] 19 Class 0 (Negative <0.35) Test Performed by: [address] [address] 20 Class 0 (Negative <0.35) Test Performed by: [place] [address] 21 Class 0 (Negative <0.35) Test Performed by: [place] [address] 22 Class 0 (Negative <0.35) Test Performed by: [place] [address] 23 Class 0 (Negative <0.35) Test Performed by: [place] [address] 24 Class 0 (Negative <0.35) Test Performed by: [place] [address] 25 Class 0 (Negative <0.35) Test Performed by: [place] [address] 26 Class 0 (Negative <0.35) Test Performed by: [place] [address] 27 Class 0 (Negative <0.35) Test Performed by: [place] [address] 28 Class 0 (Negative <0.35) Test Performed by: [place] [address] 29 Class 0 (Negative <0.35) Test Performed by: [place] [address] 30 Class 0 (Negative <0.35) Test Performed by: [place] [address] 31 Class 0 (Negative <0.35) Test Performed by: [place] [address] 32 Class 0 (Negative <0.35) Test Performed by: [place] [address] 33 Class 0 (Negative <0.35) Test Performed by: [place] [address] 34 Class 0 (Negative <0.35) Test Performed by: [place] [address] 35 Class 0 (Negative <0.35) Test Performed by: [address] [address] 36 Class 0 (Negative <0.35) Test Performed by: [address] [address] 37 Class 0 (Negative <0.35) Test Performed by: [address] [address] 38 Test Performed by: [address] [address] 39 A single M isoform is detected. In the context of a low stgax-7-vlfwafvrycy concentration, it is not possible to distinguish between an MM or MNull phenotype. Reviewed by: Usha Zabala, Ph.D. 07/10/2017 3:51 PM 40 Test Performed by: [address] [address] Procedures Date Code Description Status 06/24/2018 48718 Nitric Oxide Gas Determination Completed 12/07/2017 10234 Pre PFT Completed 12/07/2017 36003 Pre PFT Completed 11/22/2017 08299 Skin Test Scratch # Of Units ____ Completed 11/22/2017 40809 Skin Test Scratch # Of Units ____ Completed 10/26/2017 55570 Pre PFT Completed 10/19/2017 97680 Pre PFT Completed 10/19/2017 82563 Pre PFT Completed 10/05/2017 28355 Pre PFT Completed 09/21/2017 87367 Pre PFT Completed 08/10/2017 91919 Pre PFT Completed 07/27/2017 34576 Ippb Completed 07/27/2017 30615 Pre PFT Completed 07/04/2017 99083 Pulmonary Function Test Completed Encounters Type Date Location Provider Dx Diagnosis Office Visit 07/08/2018 Lucero White J30.9 Allergic rhinitis, 2:20p ORTHO NURSE-C unspecified J45.21 Mild intermittent asthma with (acute) exacerbation R05 Cough Office Visit 06/24/2018 2:40p Lucero White J30.9 Allergic rhinitis, ORTHO NURSE-C unspecified J30.1 Allergic rhinitis due to pollen J45.21 Mild intermittent asthma with (acute) exacerbation Office Visit 12/07/2017 3:00p Lucero White, J45.20 Mild intermittent ORTHO NURSE-C asthma, uncomplicated J30.9 Allergic rhinitis, unspecified J30.1 Allergic rhinitis due to pollen R05 Cough L20.9 Atopic dermatitis, unspecified Office Visit 11/22/2017 10:20a Lucero White, J45.20 Mild intermittent ORTHO NURSE-C asthma, uncomplicated J30.9 Allergic rhinitis, unspecified J30.1 Allergic rhinitis due to pollen Office Visit 10/26/2017 10[place] R05 Cough J45.21 Mild intermittent asthma with (acute) exacerbation J30.9 Allergic rhinitis, unspecified L20.9 Atopic dermatitis, unspecified Office Visit 10/19/2017 1:40p GURDEEP Painter-C R05 Cough J30.9 Allergic rhinitis, unspecified Office Visit 10/05/2017 2:00p [place] R05 Cough J30.9 Allergic rhinitis, unspecified Office Visit 09/21/2017 11:00a [place] GURDEEP Clinton-C R05 Cough J30.9 Allergic rhinitis, unspecified L20.9 Atopic dermatitis, unspecified Office Visit 08/10/2017 2:40p [place] R05 Cough J30.9 Allergic rhinitis, unspecified L20.9 Atopic dermatitis, unspecified Office Visit 07/27/2017 2:00p [place] R05 Cough J30.9 Allergic rhinitis, unspecified Office Visit 07/04/2017 9:40a [place] Julieth Santana, L20.9 Atopic dermatitis, M.D. unspecified R05 Cough J30.9 Allergic rhinitis, unspecified Plan of Treatment Future Appointment(s):07/15/2018 3:40 pm - NEHAL Clinton at [id number] - GURDEEP Clinton-CJ30.9 Allergic rhinitis, uiscguyydmkA27.21 Mild intermittent asthma with (acute) [id number] CoughNew Medication:Prednisone 5 mgXopenex HFA 45 mcg/ActFollow [...]
--- OUTSIDE RECORDS SUMMARY | 2018-07-10 15:33 | XMS REPORT | Continuity of Care Document ---
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 Ashlyn Cunningham MD Primary Care Physician Unavailable Payers Date Identification Numbers Payment Provider Subscriber Effective: 2016 Policy Number: [id number] [facility] Dorene Stephenson Group Number: [id number] [address] Group Name: [place] [address] PayID: [id number] Advance Directives Description No Information Available Problems [...] With Spouse Lives With Cats Home Environment [place] Heat Home Environment Unfinished Basement Home Environment [...] in the home Home Environment Uses air 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 medicine 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 Home Environment Uses a dehumidifier Home Environment Pillows contain feathers Home Environment Pillows are not encased in an allergy proof case Home Environment Mattress is over 10 years old Home Environment Mattress is not encased in an allergy proof case Home Environment House hae a house built in 1971 with city water, coal stove, baseboard electric Have cottage on [facility] built in 1935 will bad well, new propane forced hot air & heat pumps & recent construction/remodel ing Smoke-Free Work is smoke-free Smoke-Free Home is smoke-free Pets 2 cats Pets 2 dogs 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 hours as needed for cough, shortness of breath and wheezing Omeprazole 09/[address] 20mg 90cap once daily R05 s NEHAL White Zyrtec Allergy 07/04 Active Tablets 10mg 180ta 2 times bs daily UlDORA de la oP-C Fluoxetine HCL Active Capsules 20mg three tabs Unknown (PMDD) once daily Melatonin Active Tablets 1mg as needed Unknown 0000 Methylphenidate Active Tablets ER 54mg once daily Unknown HCL ER 0000 24HR Ventolin HFA Active Aerosol 108(90Bas 18gm 2 every 4 Ayala /0000 e) hours as Uldryogesh, mcg/Act needed INSTRUMENT LENS INSPECTOR-Srinivasa Multivitamin Active Tablets once daily Unknown Adults Fluticasone Active Suspension 50mcg/Act 48gm 2 squirt Ayala each real Whiteil GURDEEP-Srinivasa daily in the am and the pm Aleve Active Capsules 220mg Unknown /0000 Lorazepam Active Tablets 1mg Unknown /0000 Immunizations CPT Code Status Date Vaccine Lot # 50081 Given Unknown Influenza Vaccine 53343 Given Unknown Influenza Vaccine Vital Signs Date Vital Result Comment 06/24/2018 2:37pm Height 62 inches 5'2" Weight [...] Result H/L Range Note Laboratory test 12/07/2017 [facility] Rast Cow's <0.35 kU/L [address] [place] [address] [phone] Rast Soybean <0.35 kU/L 2 Rast Walnuts <0.35 kU/L 3 Rast Wheat <0.35 kU/L 4 Rast Sesame 12/07/2017 [facility] Sesame Seed <0.35 kU/L [address] [place] [address] [phone] Laboratory test 12/07/2017 [facility] Rast Egg White <0.35 kU/L 6 finding [address] [place] [address] [phone] Rast AAA Foods 12/07/2017 [facility] Rast Shrimp <0.35 kU/L 7 Shellfish Panel [address] [place] [address] [phone] Rast Lobster <0.35 kU/L 8 Rast Crab <0.35 kU/L 9 Rast Scallops <0.35 kU/L 10 Rast Blue Mussel <0.35 kU/L 11 Rast Oyster <0.35 kU/L 12 Rast Clam <0.35 kU/L 13 Rast [employer] Fish 12/07/2017 [facility] Rast Codfish <0.35 kU/ L 14 Panel [address] [place] [address] [phone] Rast [place] <0.35 kU/L 15 Rast TUNA <0.35 kU/L 16 Rast Squid Ige <0.35 kU/L 17 Laboratory test 07/04/2017 [facility] Alpha 1 125 mg/dL 100 - 18 finding 101 [facility] Antitrypsin A1a 190 [place] [address] [phone] Alternaria tenuis IgE Allergen <0.35 kU/L 19 Aspergillus Fumigatus IgE <0.35 kU/L 20 Silver Birch IgE <0.35 kU/L 21 [place] Maple IgE <0.35 kU/L 22 Cat Epithelium Allergen IgE <0.35 kU/L 23 Cladosporium herbarum IgE <0.35 kU/L 24 Cocklebur Allergen IgE <0.35 kU/L 25 Dermatophagoides farinae IgE <0.35 kU/L 26 Dermatophagoides pteronyssinus <0.35 kU/L 27 Dog Dander Allergen IgE <0.35 kU/L 28 Helminthosporium halodes IgE <0.35 kU/L 29 Cline's Quarter Allergen IgE <0.35 kU/L 30 Gross Elder Allergen IgE <0.35 kU/L 31 [place] Allergen IgE <0.35 kU/L 32 [place] Allergen IgE <0.35 kU/L 33 Rough Pigweed Allergen IgE <0.35 kU/L 34 Common Ragweed (Short) Allerge <0.35 kU/L 35 Saqib Grass Allergen IgE <0.35 kU/L 36 White Ab Allergen IgE <0.35 kU/L 37 Immunoglobulin E (Ige) 70.4 kU/L <=214 38 Alpha 1 Antitrypsin 07/04/2017 [facility] A1a Phenotype M bands [address] [place] [address] [phone] Alpha 1 Antitrypsin A1a 97 mg/dL Abnormal 100 - 190 40 CBC Auto Diff 07/04/2017 [facility] White Blood 8.9 10^3/uL N 3.5-10.[address] [place] [address] [phone] Red Blood Count 4.70 10^6/uL N 4.0-5.4 [...] Class 0 (Negative <0.35) Test Performed by: [place] [address] 2 Class 0 (Negative <0.35) Test Performed by: [place] [address] 3 Class 0 (Negative <0.35) Test Performed by: [place] [address] 4 Class 0 (Negative <0.35) Test Performed by: [place] [address] 5 Class 0 (Negative <0.35) Test Performed by: [place] [address] 6 Class 0 (Negative <0.35) Test Performed by: [place] [address] 7 Class 0 (Negative <0.35) Test Performed by: [place] [address] 8 Class 0 (Negative <0.35) Test Performed by: [place] [address] 9 Class 0 (Negative <0.35) Test Performed by: [place] [address] 10 Class 0 (Negative <0.35) Test Performed by: [place] [address] 11 Class 0 (Negative <0.35) Test Performed by: [place] [address] 12 Class 0 (Negative <0.35) Test Performed by: [place] [address] 13 Class 0 (Negative <0.35) Test Performed by: [place] [address] 14 Class 0 (Negative <0.35) Test Performed by: [place] [address] 15 Class 0 (Negative <0.35) Test Performed by: [place] [address] 16 Class 0 (Negative <0.35) Test Performed by: [place] [address] 17 Class 0 (Negative <0.35) ADDITIONAL INFORMATION This test was developed using an analyte specific reagent. Its performance characteristics were determined by [facility] in a manner consistent with CLIA requirements. This test has not been cleared or approved by the U.S. Food and Drug Administration. Test Performed by: [place] [address] 18 Test Performed by: [address] [address] 19 Class 0 (Negative <0.35) Test Performed by: [place] [address] 20 Class 0 (Negative <0.35) Test Performed by: [place] [address] 21 Class 0 (Negative <0.35) Test Performed by: [place] [address] 22 Class 0 (Negative <0.35) Test Performed by: [place] [address] 23 Class 0 (Negative <0.35) Test Performed by: [place] [address] 24 Class 0 (Negative <0.35) Test Performed by: [place] [address] 25 Class 0 (Negative <0.35) Test Performed by: [place] [address] 26 Class 0 (Negative <0.35) Test Performed by: [place] [address] 27 Class 0 (Negative <0.35) Test Performed by: [place] [address] 28 Class 0 (Negative <0.35) Test Performed by: [place] [address] 29 Class 0 (Negative <0.35) Test Performed by: [place] [address] 30 Class 0 (Negative <0.35) Test Performed by: [place] [address] 31 Class 0 (Negative <0.35) Test Performed by: [place] [address] 32 Class 0 (Negative <0.35) Test Performed by: [place] [address] 33 Class 0 (Negative <0.35) Test Performed by: [place] [address] 34 Class 0 (Negative <0.35) Test Performed by: [place] [address] 35 Class 0 (Negative <0.35) Test Performed by: [place] [address] 36 Class 0 (Negative <0.35) Test Performed by: [place] [address] 37 Class 0 (Negative <0.35) Test Performed by: [address] [address] 38 Test Performed by: [place] [address] 39 A single M isoform is detected. In the context of a low cjfim-8-ikcywwhgyxp concentration, it is not possible to distinguish between an MM or MNull phenotype. Reviewed by: Usha Zabala, Ph.D. 07/10/2017 3:51 PM 40 Test Performed by: [address] [address] Procedures Date Code Description Status 06/24/2018 98993 Nitric Oxide Gas Determination Completed 12/07/2017 04710 Pre PFT Completed 12/07/2017 67076 Pre PFT Completed 11/22/2017 19444 Skin Test Scratch # Of Units ____ Completed 11/22/2017 69637 Skin Test Scratch # Of Units ____ Completed 10/26/2017 78223 Pre PFT Completed 10/19/2017 96739 Pre PFT Completed 10/19/2017 21272 Pre PFT Completed 10/05/2017 98359 Pre PFT Completed 09/21/2017 24252 Pre PFT Completed 08/10/2017 79043 Pre PFT Completed 07/27/2017 69168 Ippb Completed 07/27/2017 22362 Pre PFT Completed 07/04/2017 10597 Pulmonary Function Test Completed Encounters Type Date Location Provider Dx Diagnosis Office Visit 06/24/2018 [facility] White J30.9 Allergic rhinitis, 2:40p INSTRUMENT LENS INSPECTOR-C unspecified J30.1 Allergic rhinitis due to pollen J45.21 Mild intermittent asthma with (acute) exacerbation Office Visit 12/07/2017 3:00p Yesica Painter45.20 Mild intermittent INSTRUMENT LENS INSPECTOR-C asthma, uncomplicated J30.9 Allergic rhinitis, unspecified J30.1 Allergic rhinitis due to pollen R05 Cough L20.9 Atopic dermatitis, unspecified Office Visit 11/22/2017 10:20a Yesica Painter45.20 Mild intermittent INSTRUMENT LENS INSPECTOR-C asthma, uncomplicated J30.9 Allergic rhinitis, unspecified J30.1 Allergic rhinitis due to pollen Office Visit 10/26/2017 10:00a GURDEEP Painter-C R05 Cough J45.21 Mild intermittent asthma with (acute) exacerbation J30.9 Allergic rhinitis, unspecified L20.9 Atopic dermatitis, unspecified Office Visit 10/19/2017 1:40p DORA PainterP-C R05 Cough J30.9 Allergic rhinitis, unspecified Office Visit 10/05/2017 2:00p Lucero White INSTRUMENT LENS INSPECTOR-C R05 Cough J30.9 Allergic rhinitis, unspecified Office Visit 09/21/2017 11:00a GURDEEP Painter-C R05 Cough J30.9 Allergic rhinitis, unspecified L20.9 Atopic dermatitis, unspecified Office Visit 08/10/2017 2:40p [place] NEHAL Clinton R05 Cough J30.9 Allergic rhinitis, unspecified L20.9 Atopic dermatitis, unspecified Office Visit 07/27/2017 2:00p NEHAL Painter R05 Cough J30.9 Allergic rhinitis, unspecified Office Visit 07/04/2017 9:40a [place] Julieth Santana, L20.9 Atopic dermatitis, M.D. unspecified R05 Cough J30.9 Allergic rhinitis, unspecified Plan of Treatment Future Appointment(s):07/15/2018 3:40 pm - NEHAL Clinton at [id number] - GURDEEP Clinton-CJ30.9 Allergic rhinitis, xlcqqhugxwpU83.1 Allergic rhinitis due to qbzdbjT02.21 Mild intermittent asthma with (acute) exacerbationNew Medication:Flovent HFA 110 mcg/ActAerochamber PlusFollow up:3 weeks with pre PFTRecommendations:Continue all medications as prescribed.Refrain from wearing perfumes/scented colognes while visitingour office. Try the Flovent 2 puffs twice a day Continue the Omeprazole to 40 mg Continue the fluticasone nasal spray 2 sprays daily Continue the Ventolin 2 puffs every 4 hours as needed for cough, shortness of breath, chest tightness or wheezing Monitor Albuterol use. If using more than 2x/week,please call the office as your asthma medications may need to be adjusted. We will skin test you to the foods that we have on the [facility] testing
[2018-07-10 16:13] LABS: Influenza A Molecular NEGATIVE (Negative); Influenza B Molecular NEGATIVE (Negative)
--- NOTE | 2018-07-10 16:23 | ED ---
Influenza-Like Illness - HPI Summary HPI Summary: This pt is a 58 y/o female presenting to [facility] c/o cough, body aches, fatigue for the past 1 week. Pt reports she has been coughing a lot for the past few days. Pt has been seeing her mammography technician for her cough who prescribed prednisone and notes she had some relief with it. Although she accidentally took 2 yesterday and developed a rash. She has also been taking albuterol, Symbicort, Mucinex for her cough with little relief. Denies fever, nausea, vomiting, SOB, wheezing. She does not use a CPAP or BiPAP. Pt's mother tested positive for influenza today and checked in because she would like to be tested. Patient medication reviewed this visit. - History of Current Complaint Chief Complaint: EDFluSymptoms Time Seen by Provider: 07/10/18 15:35 Hx Obtained From: Patient Onset/Duration: Lasting Days, Still Present Severity: Moderate Associated Signs & Symptoms: Myalgia, Cough Related Hx: Possible Flu/Infectious Exposure - exposure to mother with positive influenza - Allergy/Home Medications Allergies/Adverse Reactions: Allergies Allergy/AdvReac Type Severity Reaction Status Date / Time No Known Allergies Allergy Verified 07/10/18 15:26 PMH/Surg Hx/FS Hx/Imm Hx Previously Healthy: Yes Endocrine/Hematology History: Denies: Hx Diabetes, Hx Thyroid Disease Cardiovascular History: Denies: Hx Congestive Heart Failure, Hx Hypertension, Hx Pacemaker/ICD, Other Cardiovascular Problems/Disorders Respiratory History: Reports: Hx Asthma - ruling this out Denies: Hx Chronic Obstructive Pulmonary Disease (COPD), Other Respiratory Problems/Disorders GI History: Denies: Hx Ulcer History: Reports: Other Problems/Disorders - born with 1 kidney Musculoskeletal History: Denies: Hx Osteoporosis Psychiatric History: Reports: Hx Anxiety, Hx Attention Deficit Hyperactivity Disorder, Hx Depression Denies: Hx Eating Disorder - Cancer History Hx Chemotherapy: No Hx Radiation Therapy: No - Surgical History Surgery Procedure, Year, and Place: , GALL BLADDER REMOVED, HERNIA REPAIR Infectious Disease History: No Infectious Disease History: Reports: Hx Shingles - AT AGE 1 OR 2 Denies: Hx Hepatitis, Hx Human Immunodeficiency Virus (HIV), Traveled Outside the [place] in Last 30 Days - Family History Known Family History: Positive: Hypertension, Renal Disease, Other - mother with influenza 07/10/18 - Social History Alcohol Use: Occasionally Alcohol Amount: 2-3 times weekly Hx Substance Use: No Substance Use Type: Reports: None Hx Tobacco Use: No Smoking Status (MU): Never Smoked Tobacco Review of Systems Positive: Fatigue. Negative: Fever Positive: Cough. Negative: Shortness Of Breath Negative: Vomiting, Nausea Positive: Myalgia All Other Systems Reviewed And Are Negative: Yes Physical Exam - Summary Physical Exam Summary: Vital Signs Reviewed: Yes A+Ox3, no distress Eyes: Conjunctiva Clear, FERN. EOM intact and full ENT: Hearing grossly normal TM x 2 clear, mmoist, uvula midline, no exudate, no erythema Neck: Positive: Supple Respiratory: Positive: No respiratory distress, No accessory muscle use + CTA throughout few scattered wheeze. speaking full, easy sentences. intermittent cough Cardiovascular: RRR nl s1, s2 no m/r CBT <2 sec abd soft + BS nt/nd no guarding, no distension Musculoskeletal Exam: ARRIETA x 4 without difficulty Strength Intact, ROM Intact Neurological: Positive: Alert, + sensation throughout Psychological: Positive: Normal Response To Family Skin: Positive: no rash, no ecchymosis Triage Information Reviewed: Yes Vital Signs On Initial Exam: Initial Vitals Temp Pulse Resp BP Pulse Ox 99 F 96 16 128/88 97 07/10/18 15:23 07/10/18 15:23 07/10/18 15:23 07/10/18 15:23 07/10/18 15:23 Diagnostics - Vital Signs Vital Signs Temp Pulse Resp BP Pulse Ox 07/10/18 15:23 99 F 96 16 128/88 97 - Laboratory Lab Results: Lab Results 07/10/18 Range/Units 16:02 Influenza A (Rapid) Negative (Negative) Influenza B (Rapid) Negative (Negative) Lab Statement: Any lab studies that have been ordered have been reviewed, and results considered in the medical decision making process. Flu Symptom Course/Dx - Course Course Of Treatment: Patient has had greater than 1 week cough wheeze congestion. Patient's been closely followed by her mammography technician. Patient checked herself in the emergency department today because her mother tested positive for influenza and she wanted be tested as well. Patient without any fevers or myalgias currently. Vital signs are stable. Patient with faint expiratory scattered wheezes intermittent cough otherwise well-appearing. Patient's influenza test was negative today. Discussed with patient secretion precautions , hydration. Motrin/Tylenol. Patient declined any Tessalon Perles or treatments. Patient will follow-up with her primary or mammography technician. - Diagnoses Provider Diagnoses: Exposure to influenza, Cough Discharge - Sign-Out/Discharge Documenting (check all that apply): Patient Departure Patient Received Moderate/Deep Sedation with Procedure: No - Discharge Plan Condition: Stable Disposition: HOME Patient Education Materials: Viral Syndrome (ED), Acute Cough (ED) Referrals: Ashlyn Cunningham MD [Primary Care Provider] - Additional Instructions: - Stay well hydrated. Drink plenty of non-alcoholic, non-caffinated beverages - Continue with medications prescribed from your mammography technician (steroid, albuterol, symbicort) - These infections are spread by oral secretions. Do not share eating or drinking utensils. Frequent hand washing is important. Clean items that may get your secretions on them such as cell phones, ipads, computer mouse, television remotes. Once you have start to fele better, change your pillowcase and your toothbrush - Contact your doctor or return with questions or concerns - Billing Disposition and Condition Condition: STABLE Disposition: Home - Attestation Statements Document Initiated by Scribe: Yes Documenting Scribe: Sharmaine Cardenas Provider For Whom Scribe is Documenting (Include Credential): Yady Marte MD Scribe Attestation: Sharmaine Mejia, scribed for Yady Marte MD on 07/12/18 at 2027. Scribe Documentation Reviewed: Yes Provider Attestation: The documentation as recorded by the Sharmaine whitt accurately reflects the service I personally performed and the decisions made by me, Yady Marte MD Status of Scribe Document: Viewed
[2018-07-10 17:05] VITALS: BP 126/73
== END 2018-07-10 17:05 | disposition home or self-care (01) ==
LOC: ED 14:49
DX: Z20.828 Contact with and (suspected) exposure to other viral communicable diseases (principal); R05 Cough; R53.83 Other fatigue; M79.10 Myalgia, unspecified site
CPT/HCPCS: 99282